=== PATIENT | female | born 1965 | race Caucasian/White ===

== ENCOUNTER → 2017-07-26 | Day surgery (SDC) | payer MEDICARE, OTHER ==
[~2017-07-26] MED LIST: Bupivacaine 0.25% 10 ML SDV ONE; Carvedilol 3.125 MG Tab PO SCH; Dexamethasone 4 MG/ML 5 ML MDV ONE; EPINEPHrine 1 MG/ML 30 ML MDV ONE; EPINEPHrine 1 MG/ML SDV ONE; HYDROmorphone 0.5 MG/0.5 ML Syringe ONE; Lactated Ringers 1,000 ML IV SCH; Levalbuterol HCl 1.25 MG/3 ML Neb NEB SCH; Lidocaine 1% 4 ML ONE; Lidocaine 1%/Sod Bicarbonate in NS 8.4% 1 ML Syringe PRN; Midazolam 1 MG/ML 2 ML SDV ONE; Neostigmine Methylsulfate 10 MG/10 ML MDV ONE; Ondansetron 4 MG/2 ML SDV IVPUSH PRN; Ondansetron 4 MG/2 ML SDV ONE; Promethazine 25 MG/ML SDV IV PRN; Promethazine 6.25 MG in Sodium Chloride 0.9% 9 ML IV PRN; Propofol 200 MG/20 ML SDV ONE; Rocuronium 50 MG/5 ML Vial ONE; Ropivacaine 0.5% 5 MG/ML 30 ML SDV ONE; Scopolamine 1.5 MG Transdermal Patch TRDERM ONE; Sodium Chloride 0.9% 10 ML Syringe FLUSH PRN; Triamcinolone Acetonide 40 MG/ML 1 ML MDV ONE; ceFAZolin 1 GM Vial ONE; fentaNYL 100 MCG/2 ML SDV IVPUSH PRN; fentaNYL 250 MCG/5 ML SDV ONE; traMADol 50 MG Tab PO PRN
--- NOTE | 2017-07-26 10:01 | PCM.PREANE ---
Preanesthetic Assessment - Anesthesia/Transfusion/Family Hx Type of Anesthesia Reaction: Excessive Nausea/Vomiting Family History of Anesthesia Reaction: No Transfusion History: Prior Transfusion Without Reaction - Review of Systems General: No Symptoms Pulmonary: No Symptoms Cardiovascular: No Symptoms, Palpitations (tachycardia- treated by - placed on a new med-cardizem for 1 year) Gastrointestinal: No Symptoms Neurological: No Symptoms, Other (tremors - functional movement disorder) Other: Reports: Easy Bruising - Physical Assessment NPO Status Date: 07/25/17 NPO Status Time: 22:00 (sip of water this am) O2 Sat by Pulse Oximetry: 94 Respiratory Rate: 16 Vital Signs: Last Vital Signs Temp 97.7 F 07/26/17 09:10 Pulse 78 07/26/17 09:10 Resp 16 07/26/17 09:10 BP 121/83 07/26/17 09:10 Pulse Ox 94 L 07/26/17 09:10 Height: 5 ft 4 in Weight: 96.615 kg ASA Class: 2 Mental Status: Alert & Oriented x3 Airway Class: Mallampati = 1 Dentition: Reports: Normal Dentition Thyro-Mental Finger Breadths: 3 Mouth Opening Finger Breadths: 3 ROM/Head Extension: Limited/Partial (due to fusions) Lungs: Clear to Auscultation, Normal Respiratory Effort Cardiovascular: Regular Rate, Regular Rhythm - Allergies Allergies/Adverse Reactions: Allergies Allergy/AdvReac Type Severity Reaction Status Date / Time aspirin Allergy Anaphylactic Verified 07/25/17 14:38 Shock celecoxib [From Celebrex] Allergy Airway Verified 07/25/17 14:38 Tightness codeine Allergy Airway Verified 07/25/17 14:38 Tightness NSAIDS (Non-Steroidal Allergy Anaphylactic Verified 07/25/17 14:38 Anti-Inflamma Shock - Blood Blood Available: No - Anesthesia Plan Pre-Op Medication Ordered: Beta Joe Beta Joe: Carvedilol Med Last Dose Date: 07/26/17 (n) Med Last Dose Time: 10:00 - Acknowledgements Anesthesia Type Planned: General Anesthesia Pt an Appropriate Candidate for the Planned Anesthesia: Yes Alternatives and Risks of Anesthesia Discussed w Pt/Guardian: Yes Pt/Guardian Understands and Agrees with Anesthesia Plan: Yes PreAnesthesia Questionnaire HEENT History: Reports: None Cardiovascular History: Reports: Other (See Below) Other Cardiovascular History: tachycardia - Hx SVT Respiratory History: Reports: Asthma Gastrointestinal History: Reports: Colon Polyp, Other (See Below) Other Gastrointestinal History: hemorrhagic gastritis Genitourinary History: Reports: Other (See Below) Other Genitourinary History: history of breast lump 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 Chronic neck pain with occ. "tingling/pain in arms", muscle spasms, functional movement disorder Other Neuro History: hand tremor Psychiatric History: Reports: Anxiety, Depression, Other (See Below) Other Psychiatric History: fatgiue, insomnia Endocrine/Metabolic History: Reports: Obesity/BMI 30+ Hematologic History: Reports: None Immunologic History: Reports: None Oncologic (Cancer) History: Reports: None Dermatologic History: Reports: Other (See Below) Other Dermatologic History: actinic keratosis - Past Surgical History HEENT Surgical History: Reports: None Cardiovascular Surgical History: Reports: Other (See Below) Other Cardiovascular Surgeries/Procedures: cardiac catheterization GI Surgical History: Reports: Appendectomy, Cholecystectomy, Colonoscopy, EGD Female Surgical History: Reports: Hysterectomy, Tubal Ligation Neurological Surgical History: Reports: Other (See Below) Other Neurological Surgeries/Procedures: spinal fusion, neck surgeries and back surgery, spinal cord stimulant implant Musculoskeletal Surgical History: Reports: Arthroscopic Knee, Knee Replacement Other Musculoskeletal Surgeries/Procedures:: bilateral knee scopes and bilateral knee replacements, excision neuroma foot Oncologic Surgical History: Reports: None - SUBSTANCE USE Smoking Status *Q: Former Smoker (quit 1997) Tobacco Use Within Last Twelve Months: Snuff/Dip Second Hand Smoke Exposure: No Days Per Week of Alcohol Use: 0 (once a month) Recreational Drug Use History: No - HOME MEDS Home Medications: Home Meds Albuterol/Ipratropium [Combivent Respimat] 1 puff INH Q4H PRN 03/10/16 [History] Albuterol/Ipratropium [DuoNeb 3.0-0.5 MG/3 ML] 1 ml INH QID PRN 03/10/16 [ History] Calcium Carb & Citrate/Vit D3 [Citracal + D ER] 1 tab PO BID 03/10/16 [History] Cyclobenzaprine [Flexeril] 5 tab PO TID PRN 03/10/16 [History] EPINEPHrine [Epipen 2-Vineet] 1 ml SUBCUT ASDIRECTED PRN 03/10/16 [History] Fluticasone/Salmeterol [Advair Diskus 500-50] 1 puff INH BID 03/10/16 [History] Montelukast [Singulair] 10 mg PO DAILY 03/10/16 [History] Triamcinolone Acetonide [Nasacort] 1 spray NASBOTH BID 03/10/16 [History] traZODone 50 - 100 mg PO BEDTIME PRN 03/10/16 [History] Carvedilol [Coreg] 3.125 mg PO BID 07/25/17 [History] Cholecalciferol (Vitamin D3) [Vitamin D3] 5,000 unit PO DAILY 07/25/17 [History] Diltiazem HCl [Cardizem Cd] 360 g PO DAILY 07/25/17 [History] Fish Oil/Paris-3 Fatty Acids [Fish Oil 1,000 MG] 1,000 mg PO DAILY 07/25/17 [ History] Olopatadine HCl [Pataday] 1 drop EYEBOTH DAILY 07/25/17 [History] Propylene Glycol/PEG 400/Pf [Systane 0.3-0.4% Eye Drops] 1 drop EYEBOTH BID PRN 07/25/17 [History] Ranitidine HCl [Zantac] 300 mg PO DAILY 07/25/17 [History] Vitamin B Complex [B Complex] 1 tab PO DAILY 07/25/17 [History] traMADol [Ultram] 1 - 2 tab PO Q6H PRN #40 tablet 07/26/17 [Rx] - CURRENT (IN HOUSE) MEDS Current Meds: Current Medications Carvedilol (Coreg) 3.125 mg PO ONETIME BRUNILDA Stop: 07/26/17 10:00 Lactated Ringer's (Ringers, Lactated) 1,000 mls @ 125 mls/hr IV ASDIRECTED BRUNILDA Stop: 07/26/17 23:00 Levalbuterol HCl (Xopenex) 1.25 mg NEB ONETIME BRUNILDA Stop: 07/26/17 18:00 Last Admin: 07/26/17 09:54 Dose: 1.25 mg Lidocaine/Sodium Bicarbonate (Buffered Lidocaine 1% In Ns 8.4%) 0.25 ml .XX ONETIME PRN PRN Reason: Prior to IV Start Stop: 07/26/17 18:00 Sodium Chloride (Saline Flush) 10 ml FLUSH ASDIRECTED PRN PRN Reason: Keep Vein Open Stop: 07/26/17 18:00 Discontinued Medications Cefazolin Sodium (Ancef) Confirm Administered Dose 2 gm .ROUTE .STK-MED ONE Stop: 07/26/17 09:49 Epinephrine HCl (Adrenalin 1:1000) Confirm Administered Dose 1 mg .ROUTE .STK- MED ONE Stop: 07/26/17 07:34 Fentanyl (Sublimaze) Confirm Administered Dose 250 mcg .ROUTE .STK-MED ONE Stop: 07/26/17 07:32 Lidocaine HCl (Xylocaine-Mpf 1%) Confirm Administered Dose 4 mls @ as directed .ROUTE .STK-MED ONE Stop: 07/26/17 07:32 Midazolam HCl (Versed 1 Mg/Ml) Confirm Administered Dose 2 mg .ROUTE .STK-MED ONE Stop: 07/26/17 07:32 Ondansetron HCl (Zofran) Confirm Administered Dose 4 mg .ROUTE .STK-MED ONE Stop: 07/26/17 07:32 Propofol (Diprivan 20 Ml) Confirm Administered Dose 200 mg .ROUTE .STK-MED ONE Stop: 07/26/17 07:32 Rocuronium Pep (Zemuron) Confirm Administered Dose 50 mg .ROUTE .STK-MED ONE Stop: 07/26/17 07:32 Ropivacaine (Naropin 0.5%) Confirm Administered Dose 30 ml .ROUTE .STK-MED ONE Stop: 07/26/17 07:34
--- NOTE | 2017-07-26 12:46 | PCM.POSTAN ---
POST ANESTHESIA ASSESSMENT - MENTAL STATUS Mental Status: Alert, Oriented - VITAL SIGNS Pulse Rate: 62 SaO2: 92 Resp Rate: 14 Blood Pressure: 109/69 Temperature: 97.3 F - RESPIRATORY Respiratory Status: Respiratory Rate WNL, Airway Patent, O2 Saturation Stable, Supplemental Oxygen - CARDIOVASCULAR CV Status: Pulse Rate WNL, Blood Pressure Stable - GASTROINTESTINAL GI Status: No Symptoms - PAIN Pain Score: 2 - POST OP HYDRATION Hydration Status: Adequate & Stable
[2017-07-26] MEDS: HYDROmorphone 0.5 MG/0.5 ML Syringe IVPUSH PRN ×2 (12:55→13:14)
--- NOTE | 2017-07-26 13:21 | PCM.SN ---
- Free Text/Narrative Note: 07/26/17 [id number] Time out performed. Requested to place right interscale block with ultrasound guidance and nerve stimulator for post op pain control per Dr. Collado and patient. Preop diagnosis right shoulder pain. Procedure is right shoulder arthrosocpy with possible rotator cuff repair, possible subacromial decompression, and possible debridement Informed consent obtained. Monitors and O2 placed at 2 l per n/c. Versed 2 mg and Fentanyl 50 mcg given IV total. Patient awake and talking during procedure.Right neck and clavicle area prepped with chlorprep. Sterile gloves, hat and mask worn. US probe with sterile sleeve placed midclavicular with ID of brachial plexus and subclavian artery. Brachial plexus followed cephalad to level of cricoid. Lidocaine 1% local anesthetic injected prior to block placement. 22 g 2 inch stimplex needle advanced with US guidance to brachial plexus. Positive forearm response at ..4mA with nerve stimulator. Ceased with saline injection.Ropivacaine 0.5% with epi 1:200,000 injected in increments of 5 ml with negative aspiration before each injection to a total of 30 ml. Good spread of local anesthetic seen on US. Patient tolerated procedure well. Vitals stable with no complaints. See nurses flow sheet.
--- NOTE | 2017-07-26 13:42 | PCM48HPAN ---
Post Anesthesia Note - EVALUATION WITHIN 48HRS OF ANESTHETIC Vital Signs in Normal Range: Yes Patient Participated in Evaluation: Yes Respiratory Function Stable: Yes Airway Patent: Yes Cardiovascular Function Stable: Yes Hydration Status Stable: Yes Pain Control Satisfactory: Yes Nausea and Vomiting Control Satisfactory: Yes (medicated ) Mental Status Recovered: Yes
[2017-07-26 15:47] VITALS: BP 95/64
--- NOTE | 2017-08-01 14:06 | PCM.OPNOTE ---
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
--- NOTE | 2017-08-01 17:38 | OR ---
DATE OF OPERATION: 07/26/2017 SURGEON: Boom Collado MD OPERATION PERFORMED: 1. Right shoulder video arthroscopy with a large rotator cuff repair. 2. Subacromial decompression, right shoulder. 3. Right shoulder biceps tenodesis. 4. Left shoulder corticosteroid injection and also right shoulder limited debridement. PREOPERATIVE DIAGNOSIS: Right shoulder rotator cuff tear with chondromalacia. POSTOPERATIVE DIAGNOSIS: Right shoulder rotator cuff tear with chondromalacia with biceps tendinopathy and left shoulder rotator cuff tear. ANESTHESIA TECHNIQUE: General endotracheal intubation with interscalene block. ANESTHESIA PROVIDER: Dilip Juan. LITIGATION LEGAL SECRETARY: Jigna Goodwin PA-C ESTIMATED BLOOD LOSS: Less than 5 mL. COMPLICATIONS: None. CONDITION: Stable. DESCRIPTION OF PROCEDURE: The patient was identified in the preop holding area. Proper site was marked and identified by the surgeon. The patient was taken back to the operative theater where after adequate anesthesia, the patient was placed in the lazy left lateral decubitus position. A wedge was placed posteriorly. The patient was secured to the table. Right upper extremity was then sterilely prepped and draped in the usual sterile fashion. OR time-out was performed. The patient received 2 g of IV Ancef. At this time, the right upper extremity had 12 pounds of traction applied. A standard posterior incision was made. Scope trocar was introduced into the glenohumeral joint. Anterior portal was created with the use of the spinal needle from an outside in technique. At this time, a cursory examination showed a large tear to the supraspinatus of the right shoulder with full-thickness tear. There was grade 1 chondromalacia noted of the glenoid. No chondromalacia noted to the humeral head. Biceps tendon was noted to be significantly frayed with significant tendinopathy. The anterior labrum showed significant fraying. The subscapularis tendon was intact. At this time, a FiberWire was passed through the biceps tendon from an inside out technique for later tenodesis in the rotator interval. The biceps tenotomy then was performed and it was found to have good fixation in the rotator interval. Debridement was then done of the labrum. Attention was then turned to the subacromial space. At this time, a limited subacromial bursectomy and synovectomy was then performed and debridement. The patient was noted to have a significant type 3 acromion and the large supraspinatus tear was identified. A good bony bleeding bed was then created using a 4-0 full-radius shauna. A 4-0 full-radius shauna was then also performed to take the type 3 acromion down to a type 1 with doing an acromioplasty. At this time, it was found to have a good smooth border and transition. At this time, one 4.75 mm SwiveLock Arthrex anchor was placed medially, 2 limbs of FiberTape and 4 limbs of FiberWire were then placed from anterior to posterior with the limbs of the FiberTape being at the most anterior and the most posterior. At this time, the 4 limbs of FiberWire were tied medially and there was noted to be good druze of the footprint, 1 limb of each of those sutures was then cut and then all 4 were brought out laterally. A tap was then used again for a punch and a tap was again used laterally for 4.75 mm SwiveLock Arthrex anchor. The 4 limbs of the suture were then brought out and were pulled tight, and there was noted to be good compression of the footprint. This was found to have adequate fixation. The biceps tenodesis and the sutures in the rotator interval were then obtained and were tied in the rotator interval. These sutures were then cut. At this time, excess saline was drained from the joint. A 3-0 nylon simple suture was used for closure of the skin. Sterile soft dressing as well as a pillow sling were applied. After this was completed, under sterile technique, 2 mL of 40 mg Kenalog and 4 mL of 0.25% Marcaine were injected into the left glenohumeral joint for a left shoulder rotator cuff tear. The patient tolerated that procedure as well. [facility] /[id number]
== END | disposition home or self-care (01) ==
LOC: JD.SDS 08:44
PROVIDERS: ATTEND Orthopaedic Surgery
DX: M75.101 Unspecified rotator cuff tear or rupture of right shoulder, not specified as traumatic (principal); M75.102 Unspecified rotator cuff tear or rupture of left shoulder, not specified as traumatic; M94.211 Chondromalacia, right shoulder; M75.21 Bicipital tendinitis, right shoulder; J45.909 Unspecified asthma, uncomplicated; K21.9 Gastro-esophageal reflux disease without esophagitis; F41.8 Other specified anxiety disorders; Z90.710 Acquired absence of both cervix and uterus; Z90.49 Acquired absence of other specified parts of digestive tract; Z98.890 Other specified postprocedural states; Z98.51 Tubal ligation status; Z96.653 Presence of artificial knee joint, bilateral; Z79.899 Other long term (current) drug therapy; Z88.8 Allergy status to other drugs, medicaments and biological substances; Z91.018 Allergy to other foods; Z87.891 Personal history of nicotine dependence
CPT/HCPCS: 29826; 29827; 29828; 94640; A9270; C1713; J0171; J0690; J1100; J1170; J2250; J2405; J2550; J2710; J2795; J3010; J3301; J7120; 01630; 64415; J2704

== ENCOUNTER 2020-08-03 21:09 | Emergency (ER) | payer MEDICARE, OTHER ==
[2020-08-03 21:27] VITALS: BP 172/89; PULSE 104
--- NOTE | 2020-08-03 21:54 | EDM.PDOC ---
ED HPI GENERAL MEDICAL PROBLEM - General Chief Complaint: Respiratory Problem Stated Complaint: COUGH SOB CONGESTION CHEST PRESSURE Time Seen by Provider: 08/03/20 21:13 Source of Information: Reports: Patient, RN Notes Reviewed History Limitations: Reports: No Limitations - History of Present Illness INITIAL COMMENTS - FREE TEXT/NARRATIVE: Patient is a 54-year-old female presenting to the emergency department with complaints of chest tightness, cough, shortness of breath, congestion, and decreased appetite. Her symptoms began on of this week. She did have some diarrhea for a few days, but states she has had no diarrhea thus far today. Her appetite is slightly improved today as well. She has been able to eat solid foods. She states that she was watching her oxygen saturation at home and it was as low as 84% so she came to the emergency department for evaluation. She was seen at the clinic at [place] today and diagnosed with a sinus infection. She was started on doxycycline and prednisone. She states that she requested a Covid test, however they declined stating that she has sinusitis. At the same time she was being seen at the clinic, her was in the ER for evaluation and was admitted with Covid pneumonia. Patient denies any fever or chills. She is has no abdominal pain nausea or vomiting. - Related Data Allergies Allergy/AdvReac Type Severity Reaction Status Date / Time aspirin Allergy Anaphylactic Verified 08/03/20 21:27 Shock celecoxib [From Celebrex] Allergy Airway Verified 08/03/20 21:27 Tightness codeine Allergy Airway Verified 08/03/20 21:27 Tightness NSAIDS (Non-Steroidal Allergy Anaphylactic Verified 08/03/20 21:27 Anti-Inflamma Shock food coloring Allergy Airway Uncoded 08/03/20 21:28 Tightness Home Meds: Home Meds Albuterol/Ipratropium [Combivent Respimat] 1 puff INH Q4H PRN 03/10/16 [History] Albuterol/Ipratropium [DuoNeb 3.0-0.5 MG/3 ML] 1 ml INH QID PRN 03/10/16 [History] Calcium Carb, Citrate/Vit D3 [Citracal + D ER] 1 tab PO BID 03/10/16 [History] Cyclobenzaprine [Flexeril] 5 tab PO TID PRN 03/10/16 [History] EPINEPHrine [Epipen 2-Vineet] 1 ml SUBCUT ASDIRECTED PRN 03/10/16 [History] Fluticasone/Salmeterol [Advair Diskus 500-50] 1 puff INH BID 03/10/16 [History] Montelukast [Singulair] 10 mg PO DAILY 03/10/16 [History] Triamcinolone Acetonide [Nasacort] 1 spray NASBOTH BID 03/10/16 [History] traZODone 50 - 100 mg PO BEDTIME PRN 03/10/16 [History] Carvedilol [Coreg] 3.125 mg PO BID 07/25/17 [History] Cholecalciferol (Vitamin D3) [Vitamin D3] 5,000 unit PO DAILY 07/25/17 [History] Fish Oil/[place]-3 Fatty Acids [Fish Oil 1,000 MG] 1,000 mg PO DAILY 07/25/17 [History] Olopatadine HCl [Pataday] 1 drop EYEBOTH DAILY 07/25/17 [History] Propylene Glycol/PEG 400/Pf [Systane 0.3-0.4% Eye Drop] 1 drop EYEBOTH BID PRN 07/25/17 [History] Vitamin B Complex [B Complex] 1 tab PO DAILY 07/25/17 [History] dilTIAZem HCL [Cardizem Cd] 360 g PO DAILY 07/25/17 [History] raNITIdine HCl [Zantac] 300 mg PO DAILY 07/25/17 [History] traMADol [Ultram] 1 - 2 tab PO Q6H PRN #40 tablet 07/26/17 [Rx] Cannabidiol (Cbd) Extract [CBD Oil] 08/03/20 [History] Doxycycline [Vibramycin] 08/03/20 [History] Fluticasone Propionate 08/03/20 [History] predniSONE [Prednisone] 08/03/20 [History] Past Medical History HEENT History: Reports: None Cardiovascular History: Reports: Other (See Below) Other Cardiovascular History: tachycardia - Hx SVT Respiratory History: Reports: Asthma Gastrointestinal History: Reports: Colon Polyp, Other (See Below) Other Gastrointestinal History: hemorrhagic gastritis Genitourinary History: Reports: Other (See Below) Other Genitourinary History: history of breast lump LAUNDRY AGENT History: Reports: None Musculoskeletal History: Reports: Back Pain, Chronic, Fibromyalgia Other Musculoskeletal History: Chronic back pain with bilat leg numbness/pain. Chronic neck pain with occ. 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 Other Neuro History: hand tremor Psychiatric History: Reports: Anxiety, Depression, Other (See Below) Other Psychiatric History: fatgiue, insomnia Endocrine/Metabolic History: Reports: Obesity/BMI 30+ Hematologic History: Reports: None Immunologic History: Reports: None Oncologic (Cancer) History: Reports: None Dermatologic History: Reports: Other (See Below) Other Dermatologic History: actinic keratosis - Infectious Disease History Infectious Disease History: Reports: Chicken Pox - Past Surgical History HEENT Surgical History: Reports: None Cardiovascular Surgical History: Reports: Other (See Below) Other Cardiovascular Surgeries/Procedures: cardiac catheterization GI Surgical History: Reports: Appendectomy, Cholecystectomy, Colonoscopy, EGD Female Surgical History: Reports: Hysterectomy, Tubal Ligation Neurological Surgical History: Reports: Other (See Below) Other Neurological Surgeries/Procedures: spinal fusion, neck surgeries and back surgery, spinal cord stimulant implant Musculoskeletal Surgical History: Reports: Arthroscopic Knee, Knee Replacement Other Musculoskeletal Surgeries/Procedures:: bilateral knee scopes and bilateral knee replacements, excision neuroma foot Oncologic Surgical History: Reports: None Social & Family History - Tobacco Use Tobacco Use Status *Q: Never Tobacco User - Caffeine Use Caffeine Use: Reports: Coffee, Tea - Recreational Drug Use Recreational Drug Use: No ED ROS GENERAL - Review of Systems Review Of Systems: See Below Constitutional: Reports: Fatigue. Denies: Fever, Chills HEENT: Reports: Sinus Problem. Denies: Throat Pain Respiratory: Reports: Shortness of Breath, Cough, Other (Chest tightness). Denies: Wheezing Cardiovascular: Reports: No Symptoms Endocrine: Reports: No Symptoms GI/Abdominal: Reports: Diarrhea. Denies: Abdominal Pain, Nausea, Vomiting : Reports: No Symptoms Musculoskeletal: Reports: No Symptoms Skin: Reports: No Symptoms Neurological: Reports: No Symptoms Psychiatric: Reports: No Symptoms Hematologic/Lymphatic: Reports: No Symptoms Immunologic: Reports: No Symptoms ED EXAM, GENERAL - Physical Exam Exam: See Below General Appearance: Alert, WD/WN, No Apparent Distress Respiratory/Chest: No Respiratory Distress, Lungs Clear, Normal Breath Sounds, No Accessory Muscle Use, Chest Non-Tender, Other (Harsh, dry cough) Cardiovascular: Normal Peripheral Pulses, Regular Rate, Rhythm, No Edema, No Gallop, No JVD, No Murmur, No Rub GI/Abdominal: Normal Bowel Sounds, Soft, Non-Tender, No Organomegaly, No Distention, No Abnormal Bruit, No Mass Neurological: Alert, Oriented, CN II-XII Intact, Normal Cognition, Normal Gait, Normal Reflexes, No Motor/Sensory Deficits Psychiatric: Normal Affect, Normal Mood Skin Exam: Warm, Dry, Intact, Normal Color, No Rash Course - Vital Signs Last Recorded V/S: Last Vital Signs Temp 97.3 F 08/03/20 21:20 Pulse 104 H 08/03/20 21:20 Resp 22 H 08/03/20 21:20 BP 172/89 H 08/03/20 21:20 Pulse Ox 95 08/03/20 21:20 - Orders/Labs/Meds Labs: Laboratory Tests 08/03/20 08/03/20 08/03/20 Range/Units 21:49 21:49 21:49 WBC 2.98 L (3.98-10.04) K/mm3 RBC 4.82 (3.98-5.22) M/mm3 Hgb 14.3 (11.2-15.7) gm/dl Hct 43.3 (34.1-44.9) % MCV 89.8 (79.4-94.8) fl MCH 29.7 (25.6-32.2) pg MCHC 33.0 (32.2-35.5) g/dl RDW Std Deviation 45.4 (36.4-46.3) fL Plt Count 178 L D (182-369) K/mm3 MPV 9.5 (9.4-12.3) fl Neut % (Auto) 59.1 (34.0-71.1) % Lymph % (Auto) 28.5 (19.3-51.7) % [place] % (Auto) 10.7 (4.7-12.5) % Eos % (Auto) 0 L (0.7-5.8) Baso % (Auto) 0.7 (0.1-1.2) % Neut # (Auto) 1.76 (1.56-6.13) K/mm3 Lymph # (Auto) 0.85 L (1.18-3.74) K/mm3 [place] # (Auto) 0.32 (0.24-0.36) K/mm3 Eos # (Auto) 0.00 L (0.04-0.36) K/mm3 Baso # (Auto) 0.02 (0.01-0.08) K/mm3 Manual Slide Review Abnormal smear D-Dimer, Quantitative 0.22 (0.19-0.50) mg/L Sodium 139 (136-145) mEq/L Potassium 4.0 (3.5-5.1) mEq/L Chloride 103 (98-107) mEq/L Carbon Dioxide 22 (21-32) mEq/L Anion Gap 18.0 H (5-15) BUN 7 (7-18) mg/dL Creatinine 1.1 H (0.55-1.02) mg/dL Est Cr Clr Drug Dosing 50.49 mL/min Estimated GFR (MDRD) 52 (>60) mL/min BUN/Creatinine Ratio 6.4 L (14-18) Glucose 148 H (74-106) mg/dL Calcium 8.5 (8.5-10.1) mg/dL Ferritin (8-252) ng/ml Total Bilirubin 0.3 (0.2-1.0) mg/dL AST 38 H (15-37) U/L ALT 61 H (14-59) U/L Alkaline Phosphatase 57 (46-116) U/L Lactate Dehydrogenase 323 H (81-234) U/L Troponin I < 0.017 (0.00-0.056) ng/mL C-Reactive Protein 6.2 H* (<1.0) mg/dL Total Protein 7.3 (6.4-8.2) g/dl Albumin 3.2 L (3.4-5.0) g/dl Globulin 4.1 gm/dL Albumin/Globulin Ratio 0.8 L (1-2) 08/03/20 Range/Units 21:49 WBC (3.98-10.04) K/mm3 RBC (3.98-5.22) M/mm3 Hgb (11.2-15.7) gm/dl Hct (34.1-44.9) % MCV (79.4-94.8) fl MCH (25.6-32.2) pg MCHC (32.2-35.5) g/dl RDW Std Deviation (36.4-46.3) fL Plt Count (182-369) K/mm3 MPV (9.4-12.3) fl Neut % (Auto) (34.0-71.1) % Lymph % (Auto) (19.3-51.7) % [place] % (Auto) (4.7-12.5) % Eos % (Auto) (0.7-5.8) Baso % (Auto) (0.1-1.2) % Neut # (Auto) (1.56-6.13) K/mm3 Lymph # (Auto) (1.18-3.74) K/mm3 [place] # (Auto) (0.24-0.36) K/mm3 Eos # (Auto) (0.04-0.36) K/mm3 Baso # (Auto) (0.01-0.08) K/mm3 Manual Slide Review D-Dimer, Quantitative (0.19-0.50) mg/L Sodium (136-145) mEq/L Potassium (3.5-5.1) mEq/L Chloride (98-107) mEq/L Carbon Dioxide (21-32) mEq/L Anion Gap (5-15) BUN (7-18) mg/dL Creatinine (0.55-1.02) mg/dL Est Cr Clr Drug Dosing mL/min Estimated GFR (MDRD) (>60) mL/min BUN/Creatinine Ratio (14-18) Glucose (74-106) mg/dL Calcium (8.5-10.1) mg/dL Ferritin 649 H (8-252) ng/ml Total Bilirubin (0.2-1.0) mg/dL AST (15-37) U/L ALT (14-59) U/L Alkaline Phosphatase (46-116) U/L Lactate Dehydrogenase (81-234) U/L Troponin I (0.00-0.056) ng/mL C-Reactive Protein (<1.0) mg/dL Total Protein (6.4-8.2) g/dl Albumin (3.4-5.0) g/dl Globulin gm/dL Albumin/Globulin Ratio (1-2) - Re-Assessments/Exams Free Text/Narrative Re-Assessment/Exam: Patient is a 54-year-old female presenting to the emergency department for medical evaluation with regards to cough, shortness of breath, chest tightness, and nasal congestion. She is also had diarrhea up until today and decreased appetite. She was able to eat solid food today which she states was the first for the last few days. Her was admitted with COVID-19 pneumonia earlier today. 08/03/20 22:49 Hematology was significant for a WBC was low at 2.98, anion gap 18.0, creatinine 1.1, ferritin 649, AST 38, ALT 61, LDH 323, CRP 6.2. EKG was negative for any acute abnormalities. Chest x-ray reviewed by myself and Dr. Beltre was negative for any infiltrates. Patient's oxygen saturation has maintained 93 to 96% on room air throughout her stay in the ER. We will discharge her home with a instrument prescription for Tessalon Perles for cough. Recommend that she monitor her oxygen saturations and return to ER for worsening symptoms. She will be notified of Covid test results when available. Departure - Departure Time of Disposition: 22:49 Disposition: Home, Self-Care 01 Condition: Good Clinical Impression: Viral respiratory illness - Discharge Information *PRESCRIPTION DRUG MONITORING PROGRAM REVIEWED*: No *COPY OF PRESCRIPTION DRUG MONITORING REPORT IN PATIENT DE: No Instructions: Viral Respiratory Infection, [id number] Referrals: PCP,None [Primary Care Provider] - Forms: ED Department Discharge Additional Instructions: You were seen in the emergency department this evening for cough, shortness of breath, chest tightness, nasal congestion and decreased appetite. Your work-up included blood work, an ECG of your heart, and a chest xray. Your workup was found to be overall normal with the exception of an elevation in the labs that are consistently elevated with COVID19. There was no evidence of pneumonia. Your oxygen saturations and other vital signs were normal. A coronavirus test has been completed. You will be notified of the results when they are available which is generally 24-72 hours. Recommend that you isolate at home. A prescription for tesselon pearls has been provided. Use these as needed for cough. Continue to monitor your oxygen saturations at home. If you are maintaining less than 90%, or experience any new or worsening symptoms of concern, please return to the ER for reevaluation. Sepsis Event Note (ED) - Evaluation Sepsis Screening Result: Possible Sepsis Risk
== END 2020-08-03 23:15 | disposition home or self-care (01) ==
LOC: JD.ED 21:09
DX: J06.9 Acute upper respiratory infection, unspecified (principal); J45.909 Unspecified asthma, uncomplicated; F41.9 Anxiety disorder, unspecified; F32.9 Major depressive disorder, single episode, unspecified; E66.9 Obesity, unspecified; Z88.8 Allergy status to other drugs, medicaments and biological substances; Z88.1 Allergy status to other antibiotic agents; Z91.018 Allergy to other foods; Z88.5 Allergy status to narcotic agent; Z98.51 Tubal ligation status; Z90.710 Acquired absence of both cervix and uterus; Z90.49 Acquired absence of other specified parts of digestive tract; Z79.899 Other long term (current) drug therapy
CPT/HCPCS: 36415; 71045; 80053; 82728; 83615; 84484; 85025; 85379; 86140; 93005; 99285; U0002; 93010; 99283

== ENCOUNTER 2020-08-06 10:42 | Inpatient (IN) | payer MEDICARE, OTHER ==
--- NOTE | 2020-08-06 11:50 | EDM.PDOC ---
ED HPI GENERAL MEDICAL PROBLEM - General Chief Complaint: Respiratory Problem Stated Complaint: COVID SX DIFFUCULTY BREATHING Time Seen by Provider: 08/06/20 11:18 Source of Information: Reports: Patient, Old Records, RN Notes Reviewed History Limitations: Reports: No Limitations - History of Present Illness INITIAL COMMENTS - FREE TEXT/NARRATIVE: Patient is a 54-year-old female who presents to the ED for evaluation of her COVID-like symptoms. Patient notes her was diagnosed with COVID, and is currently hospitalized for this. Patient notes she has been having symptoms since last week . She was seen in this ER on Sunday, tested for COVID- 19, but has not received results. Review of that visit does demonstrate lab values that are suspicious for positive diagnosis of COVID-19 at this time. Patient states that she does have a history of asthma, she was feeling very short of breath at home. She states she woke up this morning, did some light activity around the house and noted that her oxygen sats were in the 70s. She states she saw as high as 82%, and then decided to come to the ER for management. She has oxygen sats of 93 to 94% while being in the ER, and she is not visibly dyspneic. Her respiratory rate is 33 breaths/min, pulse rate is 116, temperature is 98.6 F. Patient states she is coughing quite a bit, and the Tessalon Perles seem to help a little bit. She states she was using her asthma inhaler as well, and is currently on prednisone from her primary care provider. She states that she did get some relief with asthma inhaler, and has been using this off and on. Her primary care provider is Paris Umana. Patient states she is not thought she has had any fever at home, but she does feel chilled. She has a cough, shortness of breath, but no nausea/vomiting/diarrhea. Treatments GREY TENDER: Reports: Other (see below) Other Treatments GREY TENDER: none for a few days Left Chest Pain Score (Numeric/FACES): 6 - Related Data Allergies Allergy/AdvReac Type Severity Reaction Status Date / Time aspirin Allergy Severe Anaphylactic Verified 08/06/20 11:13 Shock celecoxib [From Celebrex] Allergy Severe Airway Verified 08/06/20 11:13 Tightness codeine Allergy Severe Airway Verified 08/06/20 11:13 Tightness NSAIDS (Non-Steroidal Allergy Severe Anaphylactic Verified 08/06/20 11:13 Anti-Inflamma Shock food coloring Allergy Severe Airway Uncoded 08/06/20 11:13 Tightness Home Meds: Home Meds Albuterol/Ipratropium [Combivent Respimat] 1 puff INH Q4H PRN 03/10/16 [History] Albuterol/Ipratropium [DuoNeb 3.0-0.5 MG/3 ML] 1 ml INH QID PRN 03/10/16 [History] Calcium Carb, Citrate/Vit D3 [Citracal + D ER] 1 tab PO BID 03/10/16 [History] Cyclobenzaprine [Flexeril] 5 tab PO TID PRN 03/10/16 [History] EPINEPHrine [Epipen 2-Vineet] 1 ml SUBCUT ASDIRECTED PRN 03/10/16 [History] Fluticasone/Salmeterol [Advair Diskus 500-50] 1 puff INH BID 03/10/16 [History] Montelukast [Singulair] 10 mg PO DAILY 03/10/16 [History] Triamcinolone Acetonide [Nasacort] 1 spray NASBOTH BID 03/10/16 [History] traZODone 50 - 100 mg PO BEDTIME PRN 03/10/16 [History] Carvedilol [Coreg] 3.125 mg PO BID 07/25/17 [History] Cholecalciferol (Vitamin D3) [Vitamin D3] 5,000 unit PO DAILY 07/25/17 [History] Fish Oil/[place]-3 Fatty Acids [Fish Oil 1,000 MG] 1,000 mg PO DAILY 07/25/17 [History] Olopatadine HCl [Pataday] 1 drop EYEBOTH DAILY 07/25/17 [History] Propylene Glycol/PEG 400/Pf [Systane 0.3-0.4% Eye Drop] 1 drop EYEBOTH BID PRN 07/25/17 [History] Vitamin B Complex [B Complex] 1 tab PO DAILY 07/25/17 [History] dilTIAZem HCL [Cardizem Cd] 360 g PO DAILY 07/25/17 [History] raNITIdine HCl [Zantac] 300 mg PO DAILY 07/25/17 [History] traMADol [Ultram] 1 - 2 tab PO Q6H PRN #40 tablet 07/26/17 [Rx] Cannabidiol (Cbd) Extract [CBD Oil] 08/03/20 [History] Doxycycline [Vibramycin] 08/03/20 [History] Fluticasone Propionate 08/03/20 [History] predniSONE [Prednisone] 08/03/20 [History] Past Medical History Cardiovascular History: Reports: Other (See Below) Other Cardiovascular History: tachycardia - Hx SVT Respiratory History: Reports: Asthma Gastrointestinal History: Reports: Colon Polyp, Other (See Below) Other Gastrointestinal History: hemorrhagic gastritis Genitourinary History: Reports: Other (See Below) Other Genitourinary History: history of breast lump Musculoskeletal History: Reports: Back Pain, Chronic, Fibromyalgia Other Musculoskeletal History: Chronic back pain with bilat leg numbness/pain. Chronic neck pain with occ. 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 Neurological History: Reports: Other (See Below) Other Neuro History: hand tremor Psychiatric History: Reports: Anxiety, Depression, Other (See Below) Other Psychiatric History: fatigue, insomnia Endocrine/Metabolic History: Reports: Obesity/BMI 30+ Dermatologic History: Reports: Other (See Below) Other Dermatologic History: actinic keratosis - Infectious Disease History Infectious Disease History: Reports: Chicken Pox - Past Surgical History Cardiovascular Surgical History: Reports: Other (See Below) Other Cardiovascular Surgeries/Procedures: cardiac catheterization GI Surgical History: Reports: Appendectomy, Cholecystectomy, Colonoscopy, EGD Female Surgical History: Reports: Hysterectomy, Tubal Ligation Neurological Surgical History: Reports: Other (See Below) Other Neurological Surgeries/Procedures: spinal fusion, neck surgeries and back surgery, spinal cord stimulant implant Musculoskeletal Surgical History: Reports: Arthroscopic Knee, Knee Replacement Other Musculoskeletal Surgeries/Procedures:: bilateral knee scopes and bilateral knee replacements, excision neuroma foot Social & Family History - Tobacco Use Tobacco Use Status *Q: Never Tobacco User - Caffeine Use Caffeine Use: Reports: Coffee, Soda - Recreational Drug Use Recreational Drug Use: No ED ROS GENERAL - Review of Systems Review Of Systems: Comprehensive ROS is negative, except as noted in HPI. ED EXAM, GENERAL - Physical Exam Exam: See Below Exam Limited By: No Limitations General Appearance: Alert, WD/WN, No Apparent Distress Respiratory/Chest: No Respiratory Distress, Lungs Clear, Normal Breath Sounds, No Accessory Muscle Use, Chest Non-Tender, Other (dry, harsh, non-productive cough) Cardiovascular: Normal Peripheral Pulses, Regular Rate, Rhythm, No Murmur Peripheral Pulses: 2+: Radial (L), Radial (R) GI/Abdominal: Normal Bowel Sounds, Soft, Non-Tender, No Distention, No Mass Extremities: Normal Inspection, Normal Capillary Refill Neurological: Alert, Oriented, Normal Cognition, No Motor/Sensory Deficits Psychiatric: Normal Affect, Normal Mood Skin Exam: Warm, Dry, Intact, Normal Color, No Rash Course - Vital Signs Last Recorded V/S: Last Vital Signs Temp 98.6 F 08/06/20 11:12 Pulse 116 H 08/06/20 11:12 Resp 33 H 08/06/20 11:12 BP 135/69 08/06/20 11:12 Pulse Ox 93 L 08/06/20 11:12 - Orders/Labs/Meds Orders: Active Orders 24 hr Category Date Time Status Admission Status [Patient Status] [ADT] Routine ADT 08/06/20 12:24 Ordered Oxygen Therapy, ED [RC] ASDIRECTED Care 08/06/20 12:23 Ordered Peripheral IV Care [RC] . DIRECTED Care 08/06/20 12:16 Ordered Chest 1V Frontal [CR] Stat Exams 08/06/20 11:42 Ordered C-REACTIVE PROTEIN [CHEM] Stat Lab 08/06/20 12:15 Ordered CBC WITH AUTO DIFF [HEME] Stat Lab 08/06/20 12:15 Ordered COMPREHENSIVE METABOLIC PN,CMP [CHEM] Stat Lab 08/06/20 12:15 Ordered CULTURE BLOOD [BC] Stat Lab 08/06/20 12:23 Ordered CULTURE BLOOD [BC] Stat Lab 08/06/20 12:23 Ordered D-DIMER QUANTITATIVE [COAG] Stat Lab 08/06/20 12:15 Ordered FERRITIN [CHEM] Stat Lab 08/06/20 12:16 Ordered FIBRINOGEN [COAG] Stat Lab 08/06/20 12:15 Ordered LACTATE DEHYDROGENASE,LDH [CHEM] Stat Lab 08/06/20 12:15 Ordered MAGNESIUM [CHEM] Stat Lab 08/06/20 12:15 Ordered PROCALCITONIN [REF] Stat Lab 08/06/20 12:15 Ordered Sodium Chloride 0.9% [Saline Flush] Med 08/06/20 12:16 Ordered 10 ml FLUSH ASDIRECTED PRN Blood Culture x2 Reflex Set [OM.PC] Stat Oth 08/06/20 12:23 Ordered Peripheral IV Insertion Adult [OM.PC] Routine Oth 08/06/20 12:16 Ordered Medication Orders Sodium Chloride (Saline Flush) 10 ml FLUSH ASDIRECTED PRN PRN Reason: Keep Vein Open Labs: Laboratory Tests 08/06/20 Range/Units 12:32 Puncture Site Rt radial ABG pH 7.46 H (7.35-7.45) ABG pCO2 32.7 L (35.0-45.0) mmHg ABG pO2 60.0 L (80.0-100.0) mmHg ABG HCO3 22.7 (22.0-26.0) meq/L ABG O2 Saturation 91.5 L (96.0-97.0) % ABG Base Excess -0.1 (-2-2.0) Hemant Test Positive A-a Gradient 49 mmHg O2 Delivery Device Room air Meds: Medications Generic Name Dose Route Start Last Admin Trade Name Freq PRN Reason Stop Dose Admin Sodium Chloride 10 ml 08/06/20 12:16 Saline Flush FLUSH ASDIRECTED PRN Keep Vein Open Discontinued Medications Generic Name Dose Route Start Last Admin Trade Name Freq PRN Reason Stop Dose Admin Dexamethasone 6 mg 08/06/20 12:28 Dexamethasone IVPUSH 08/06/20 12:29 ONETIME ONE Remdesivir 200 mg/ Sodium 250 mls @ 250 mls/hr 08/06/20 12:26 Chloride IV 08/06/20 12:27 ONETIME ONE - Re-Assessments/Exams Free Text/Narrative Re-Assessment/Exam: 08/06/20 11:47 Patient presents to the ED for evaluation of her [id number] symptoms. For today's purposes, we will repeat a chest x-ray, patient is okay with this plan. It is likely that she is suffering from COVID-19, even though the swab is pending. Patient feels better after she gets to the ER and use the asthma inhaler. I did tell her that it would be okay for her to use this 4 times a day over the next few days, as these next few days are the most likely for her to feel the worst. I told her to keep taking the prednisone as directed as well. 08/06/20 12:21 The patient's chest x-ray has progressed at this time, and does look suspicious for COVID-19 pneumonia. Patient is still slightly tachycardic, and oxygen sats have dipped to the high 80s, fortunately our hospitalist was in the ER, consulting on another patient, and thinks that they would have room for a patient like this, and at this stage of her disease course, he states she would likely benefit from remdesivir and other treatments. 08/06/20 12:47 Chest x-ray does show groundglass airspace disease with mid and lower lung pettit bilaterally. Departure - Departure Time of Disposition: 12:25 Disposition: Admitted As Inpatient 66 Condition: Fair Clinical Impression: COVID-19, Hypoxia - Discharge Information *PRESCRIPTION DRUG MONITORING PROGRAM REVIEWED*: No *COPY OF PRESCRIPTION DRUG MONITORING REPORT IN PATIENT DE: No Referrals: Paris Umana NP [Primary Care Provider] - Forms: ED Department Discharge Sepsis Event Note (ED) - Evaluation Sepsis Screening Result: No Definite Risk - Focused Exam Vital Signs: Vital Signs Temp Pulse Resp BP Pulse Ox 08/06/20 11:12 98.6 F 116 H 33 H 135/69 93 L - My Orders Last 24 Hours: My Active Orders 08/06/20 11:42 Chest 1V Frontal [CR] Stat 08/06/20 12:15 C-REACTIVE PROTEIN [CHEM] Stat CBC WITH AUTO DIFF [HEME] Stat COMPREHENSIVE METABOLIC PN,CMP [CHEM] Stat D-DIMER QUANTITATIVE [COAG] Stat FIBRINOGEN [COAG] Stat LACTATE DEHYDROGENASE,LDH [CHEM] Stat MAGNESIUM [CHEM] Stat PROCALCITONIN [REF] Stat 08/06/20 12:16 Peripheral IV Care [RC] . DIRECTED FERRITIN [CHEM] Stat Sodium Chloride 0.9% [Saline Flush] 10 ml FLUSH ASDIRECTED PRN Peripheral IV Insertion Adult [OM.PC] Routine 08/06/20 12:23 Oxygen Therapy, ED [RC] ASDIRECTED CULTURE BLOOD [BC] Stat CULTURE BLOOD [BC] Stat Blood Culture x2 Reflex Set [OM.PC] Stat 08/06/20 12:24 Admission Status [Patient Status] [ADT] Routine - Assessment/Plan Last 24 Hours: My Active Orders 08/06/20 11:42 Chest 1V Frontal [CR] Stat 08/06/20 12:15 C-REACTIVE PROTEIN [CHEM] Stat CBC WITH AUTO DIFF [HEME] Stat COMPREHENSIVE METABOLIC PN,CMP [CHEM] Stat D-DIMER QUANTITATIVE [COAG] Stat FIBRINOGEN [COAG] Stat LACTATE DEHYDROGENASE,LDH [CHEM] Stat MAGNESIUM [CHEM] Stat PROCALCITONIN [REF] Stat 08/06/20 12:16 Peripheral IV Care [RC] . DIRECTED FERRITIN [CHEM] Stat Sodium Chloride 0.9% [Saline Flush] 10 ml FLUSH ASDIRECTED PRN Peripheral IV Insertion Adult [OM.PC] Routine 08/06/20 12:23 Oxygen Therapy, ED [RC] ASDIRECTED CULTURE BLOOD [BC] Stat CULTURE BLOOD [BC] Stat Blood Culture x2 Reflex Set [OM.PC] Stat 08/06/20 12:24 Admission Status [Patient Status] [ADT] Routine
[2020-08-06] MEDS ORDERED: Sodium Chloride 0.9% 10 ML Syringe FLUSH PRN (12:16)
[2020-08-06] MEDS ORDERED: Dexamethasone 10 MG/ML SDV IVPUSH ONE (12:28)
[2020-08-06] MEDS ORDERED: Ondansetron 4 MG/2 ML SDV IV PRN (14:05)
[2020-08-06] MEDS ORDERED: Azithromycin 500 MG AdvVial IV SCH (14:30)
[2020-08-06] MEDS ORDERED: cefTRIAXone 2 GM in Sodium Chloride 0.9% 100 ML IV SCH (14:45)
[2020-08-06] MEDS ORDERED: Potassium Chloride 20 MEQ Tab.ER PO STA (15:41)
--- NOTE | 2020-08-06 15:51 | PCM.HP.2 ---
H&P History of Present Illness - General Date of Service: 08/06/20 Admit Problem/Dx: Admission Diagnosis/Problem Admission Diagnosis/Problem Hypoxia Source of Information: Patient, Provider History Limitations: Reports: No Limitations - History of Present Illness Initial Comments - Free Text/Narative: Patient is a 54-year-old female who presents to the ED for evaluation of her COVID-like symptoms. Patient notes her was diagnosed with COVID, and is currently hospitalized for this. Patient notes she has been having symptoms since last week . She was seen in this ER on Sunday, tested for COVID- 19, but has not received results. Review of that visit does demonstrate lab values that are suspicious for positive diagnosis of COVID-19 at this time. Patient states that she does have a history of asthma, she was feeling very short of breath at home. She states she woke up this morning, did some light activity around the house and noted that her oxygen sats were in the 70s. She states she saw as high as 82%, and then decided to come to the ER for m anagement. She has oxygen sats of 93 to 94% while being in the ER, and she is not visibly dyspneic. Her respiratory rate is 33 breaths/min, pulse rate is 116, temperature is 98.6 F. Patient states she is coughing quite a bit, and the Tessalon Perles seem to help a little bit. She states she was using her asthma inhaler as well, and is currently on prednisone from her primary care provider. She states that she did get some relief with asthma inhaler, and has been using this off and on. Her primary care provider is Paris Umana. Patient states she is not thought she has had any fever at home, but she does feel chilled. She has a cough, shortness of breath, but no nausea/vomiting/diar garry. Left Chest Pain Score (Numeric/FACES): 6 - Related Data Allergies/Adverse Reactions: Allergies Allergy/AdvReac Type Severity Reaction Status Date / Time aspirin Allergy Severe Anaphylactic Verified 08/06/20 11:13 Shock celecoxib [From Celebrex] Allergy Severe Airway Verified 08/06/20 11:13 Tightness codeine Allergy Severe Airway Verified 08/06/20 11:13 Tightness NSAIDS (Non-Steroidal Allergy Severe Anaphylactic Verified 08/06/20 11:13 Anti-Inflamma Shock food coloring Allergy Severe Airway Uncoded 08/06/20 11:13 Tightness Home Medications: Home Meds Albuterol/Ipratropium [Combivent Respimat] 1 puff INH Q4H PRN 03/10/16 [History] Albuterol/Ipratropium [DuoNeb 3.0-0.5 MG/3 ML] 1 ml INH QID PRN 03/10/16 [History] Calcium Carb, Citrate/Vit D3 [Citracal + D ER] 1 tab PO BID 03/10/16 [History] Cyclobenzaprine [Flexeril] 5 tab PO TID PRN 03/10/16 [History] EPINEPHrine [Epipen 2-Vineet] 1 ml SUBCUT ASDIRECTED PRN 03/10/16 [History] Fluticasone/Salmeterol [Advair Diskus 500-50] 1 puff INH BID 03/10/16 [History] Montelukast [Singulair] 10 mg PO DAILY 03/10/16 [History] Triamcinolone Acetonide [Nasacort] 1 spray NASBOTH BID 03/10/16 [History] traZODone 50 - 100 mg PO BEDTIME PRN 03/10/16 [History] Carvedilol [Coreg] 3.125 mg PO BID 07/25/17 [History] Cholecalciferol (Vitamin D3) [Vitamin D3] 5,000 unit PO DAILY 07/25/17 [History] Fish Oil/[place]-3 Fatty Acids [Fish Oil 1,000 MG] 1,000 mg PO DAILY 07/25/17 [History] Olopatadine HCl [Pataday] 1 drop EYEBOTH DAILY 07/25/17 [History] Propylene Glycol/PEG 400/Pf [Systane 0.3-0.4% Eye Drop] 1 drop EYEBOTH BID PRN 07/25/17 [History] Vitamin B Complex [B Complex] 1 tab PO DAILY 07/25/17 [History] dilTIAZem HCL [Cardizem Cd] 360 g PO DAILY 07/25/17 [History] raNITIdine HCl [Zantac] 300 mg PO DAILY 07/25/17 [History] traMADol [Ultram] 1 - 2 tab PO Q6H PRN #40 tablet 07/26/17 [Rx] Cannabidiol (Cbd) Extract [CBD Oil] 08/03/20 [History] Doxycycline [Vibramycin] 08/03/20 [History] Fluticasone Propionate 08/03/20 [History] predniSONE [Prednisone] 08/03/20 [History] Past Medical History HEENT History: Reports: None Cardiovascular History: Reports: Other (See Below) Other Cardiovascular History: tachycardia - Hx SVT Respiratory History: Reports: Asthma Gastrointestinal History: Reports: Colon Polyp, Other (See Below) Other Gastrointestinal History: hemorrhagic gastritis Genitourinary History: Reports: Other (See Below) Other Genitourinary History: history of breast lump BOX FINISHER History: Reports: None Musculoskeletal History: Reports: Back Pain, Chronic, Fibromyalgia Other Musculoskeletal History: Chronic back pain with bilat leg numbness/pain. Chronic neck pain with occ. 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 Neurological History: Reports: Other (See Below) Other Neuro History: hand tremor Psychiatric History: Reports: Anxiety, Depression, Other (See Below) Other Psychiatric History: fatigue, insomnia Endocrine/Metabolic History: Reports: Obesity/BMI 30+ Hematologic History: Reports: None Immunologic History: Reports: None Oncologic (Cancer) History: Reports: None Dermatologic History: Reports: Other (See Below) Other Dermatologic History: actinic keratosis - Infectious Disease History Infectious Disease History: Reports: Chicken Pox - Past Surgical History HEENT Surgical History: Reports: None Cardiovascular Surgical History: Reports: Other (See Below) Other Cardiovascular Surgeries/Procedures: cardiac catheterization GI Surgical History: Reports: Appendectomy, Cholecystectomy, Colonoscopy, EGD Female Surgical History: Reports: Hysterectomy, Tubal Ligation Neurological Surgical History: Reports: Other (See Below) Other Neurological Surgeries/Procedures: spinal fusion, neck surgeries and back surgery, spinal cord stimulant implant Musculoskeletal Surgical History: Reports: Arthroscopic Knee, Knee Replacement Other Musculoskeletal Surgeries/Procedures:: bilateral knee scopes and bilateral knee replacements, excision neuroma foot Oncologic Surgical History: Reports: None Social & Family History - Tobacco Use Tobacco Use Status *Q: Former Tobacco User Used Tobacco, but Quit: Yes Month/Year Tobacco Last Used: 2018 - Caffeine Use Caffeine Use: Reports: Coffee, Soda, Tea - Recreational Drug Use Recreational Drug Use: No H&P Review of Systems - Review of Systems: Review Of Systems: See Below General: Reports: Malaise, Weakness HEENT: Reports: Glasses Pulmonary: Reports: Shortness of Breath, Cough, Sputum (Clear sputum) Cardiovascular: Reports: No Symptoms Gastrointestinal: Reports: No Symptoms Genitourinary: Reports: No Symptoms Musculoskeletal: Reports: No Symptoms Skin: Reports: No Symptoms Psychiatric: Reports: No Symptoms Neurological: Reports: No Symptoms Exam - Exam Exam: See Below - Vital Signs Vital Signs: Last Vital Signs Temp 98.6 F 08/06/20 11:12 Pulse 116 H 08/06/20 11:12 Resp 33 H 08/06/20 11:12 BP 135/69 08/06/20 11:12 Pulse Ox 93 L 08/06/20 11:12 Weight: 226 lb - Exam Quality Assessment: Supplemental Oxygen, DVT Prophylaxis (Lovenox) General: Alert, Oriented, Cooperative, Mild Distress HEENT: Conjunctiva Clear, EACs Clear, Mucosa Moist & [place], Pupils Reactive Neck: Supple, Trachea Midline. No: Lymphadenopathy Lungs: Decreased Breath Sounds, Crackles (Fine crackles in the bases.) Cardiovascular: Regular Rate, Regular Rhythm GI/Abdominal Exam: Normal Bowel Sounds, Soft, Non-Tender, No Distention (Female) Exam: Deferred Rectal (Female) Exam: Deferred Back Exam: Normal Inspection, Full Range of Motion Extremities: Normal Inspection, Normal Range of Motion, Non-Tender, No Pedal Edema, Normal Capillary Refill Peripheral Pulses: 2+: Radial (L), Radial (R), Dorsalis Pedis (L), Dorsalis Pedis (R) Skin: Warm, Dry, Intact Neuro Extensive - Mental Status: Alert, Oriented x3, Normal Mood/Affect, Normal Cognition, Memory Intact Psychiatric: Alert, Normal Affect, Normal Mood - Patient Data Lab Results Last 24 hrs: Laboratory Results - last 24 hr 08/06/20 08/06/20 08/06/20 Range/Units 12:32 12:48 12:48 WBC 8.92 (3.98-10.04) K/mm3 RBC 4.56 (3.98-5.22) M/mm3 Hgb 13.5 (11.2-15.7) gm/dl Hct 41.2 (34.1-44.9) % MCV 90.4 (79.4-94.8) fl MCH 29.6 (25.6-32.2) pg MCHC 32.8 (32.2-35.5) g/dl RDW Std Deviation 45.8 (36.4-46.3) fL Plt Count 247 (182-369) K/mm3 MPV 9.4 (9.4-12.3) fl Neut % (Auto) 79.1 H (34.0-71.1) % Lymph % (Auto) 9.1 L (19.3-51.7) % [place] % (Auto) 9.3 (4.7-12.5) % Eos % (Auto) 0.6 L (0.7-5.8) Baso % (Auto) 0.1 (0.1-1.2) % Neut # (Auto) 7.06 H (1.56-6.13) K/mm3 Lymph # (Auto) 0.81 L (1.18-3.74) K/mm3 [place] # (Auto) 0.83 H (0.24-0.36) K/mm3 Eos # (Auto) 0.05 (0.04-0.36) K/mm3 Baso # (Auto) 0.01 (0.01-0.08) K/mm3 Manual Slide Review Abnormal smear Fibrinogen 491 H (187-446) mg/dL D-Dimer, Quantitative 0.32 (0.19-0.50) mg/L Puncture Site Rt radial ABG pH 7.46 H (7.35-7.45) ABG pCO2 32.7 L (35.0-45.0) mmHg ABG pO2 60.0 L (80.0-100.0) mmHg ABG HCO3 22.7 (22.0-26.0) meq/L ABG O2 Saturation 91.5 L (96.0-97.0) % ABG Base Excess -0.1 (-2-2.0) Hemant Test Positive A-a Gradient 49 mmHg O2 Delivery Device Room air Sodium (136-145) mEq/L Potassium (3.5-5.1) mEq/L Chloride (98-107) mEq/L Carbon Dioxide (21-32) mEq/L Anion Gap (5-15) BUN (7-18) mg/dL Creatinine (0.55-1.02) mg/dL Est Cr Clr Drug Dosing mL/min Estimated GFR (MDRD) (>60) mL/min BUN/Creatinine Ratio (14-18) Glucose (74-106) mg/dL Calcium (8.5-10.1) mg/dL Magnesium (1.8-2.4) mg/dl Ferritin (8-252) ng/ml Total Bilirubin (0.2-1.0) mg/dL AST (15-37) U/L ALT (14-59) U/L Alkaline Phosphatase (46-116) U/L Lactate Dehydrogenase (81-234) U/L C-Reactive Protein (<1.0) mg/dL Total Protein (6.4-8.2) g/dl Albumin (3.4-5.0) g/dl Globulin gm/dL Albumin/Globulin Ratio (1-2) Blood Type 08/06/20 08/06/20 08/06/20 Range/Units 12:48 12:48 12:48 WBC (3.98-10.04) K/mm3 RBC (3.98-5.22) M/mm3 Hgb (11.2-15.7) gm/dl Hct (34.1-44.9) % MCV (79.4-94.8) fl MCH (25.6-32.2) pg MCHC (32.2-35.5) g/dl RDW Std Deviation (36.4-46.3) fL Plt Count (182-369) K/mm3 MPV (9.4-12.3) fl Neut % (Auto) (34.0-71.1) % Lymph % (Auto) (19.3-51.7) % [place] % (Auto) (4.7-12.5) % Eos % (Auto) (0.7-5.8) Baso % (Auto) (0.1-1.2) % Neut # (Auto) (1.56-6.13) K/mm3 Lymph # (Auto) (1.18-3.74) K/mm3 [place] # (Auto) (0.24-0.36) K/mm3 Eos # (Auto) (0.04-0.36) K/mm3 Baso # (Auto) (0.01-0.08) K/mm3 Manual Slide Review Fibrinogen (187-446) mg/dL D-Dimer, Quantitative (0.19-0.50) mg/L Puncture Site ABG pH (7.35-7.45) ABG pCO2 (35.0-45.0) mmHg ABG pO2 (80.0-100.0) mmHg ABG HCO3 (22.0-26.0) meq/L ABG O2 Saturation (96.0-97.0) % ABG Base Excess (-2-2.0) Hemant Test A-a Gradient mmHg O2 Delivery Device Sodium 140 (136-145) mEq/L Potassium 3.2 L (3.5-5.1) mEq/L Chloride 102 (98-107) mEq/L Carbon Dioxide 23 (21-32) mEq/L Anion Gap 18.2 H (5-15) BUN 10 (7-18) mg/dL Creatinine 1.0 (0.55-1.02) mg/dL Est Cr Clr Drug Dosing 55.54 mL/min Estimated GFR (MDRD) 58 (>60) mL/min BUN/Creatinine Ratio 10.0 L (14-18) Glucose 109 H (74-106) mg/dL Calcium 8.5 (8.5-10.1) mg/dL Magnesium 1.9 (1.8-2.4) mg/dl Ferritin 603 H (8-252) ng/ml Total Bilirubin 0.5 (0.2-1.0) mg/dL AST 43 H (15-37) U/L ALT 73 H (14-59) U/L Alkaline Phosphatase 45 L (46-116) U/L Lactate Dehydrogenase 282 H (81-234) U/L C-Reactive Protein 6.2 H* (<1.0) mg/dL Total Protein 6.9 (6.4-8.2) g/dl Albumin 3.0 L (3.4-5.0) g/dl Globulin 3.9 gm/dL Albumin/Globulin Ratio 0.8 L (1-2) Blood Type A POSITIVE Result Diagrams: 08/06/20 12:48 08/06/20 12:48 Sepsis Event Note - Evaluation Sepsis Screening Result: No Definite Risk - Focused Exam Vital Signs: Vital Signs Temp Pulse Resp BP Pulse Ox 08/06/20 11:12 98.6 F 116 H 33 H 135/69 93 L - Problem List (1) Asthma SNOMED Code(s): 054815865 ICD Code: J45.909 - UNSPECIFIED ASTHMA, UNCOMPLICATED Status: Acute Priority: High Current Visit: Yes Qualifiers: Asthma severity: unspecified severity Asthma persistence: unspecified Asthma complication type: unspecified Qualified Code(s): J45.909 - Unspecified asthma, uncomplicated (2) COVID-19 SNOMED Code(s): 569763210 ICD Code: U07.1 - COVID-19 Status: Acute Priority: High Current Visit: Yes (3) Hypoxia SNOMED Code(s): 987990108 ICD Code: R09.02 - HYPOXEMIA Status: Acute Priority: High Current Visit: Yes Problem List Initiated/Reviewed/Updated: Yes Orders Last 24hrs: Active Orders 24 hr Category Date Time Status Admission Status [Patient Status] [ADT] Routine ADT 08/06/20 12:24 Active Patient Status [ADT] Routine ADT 08/06/20 14:05 Active Cardiac Monitoring [RC] CONTINUOUS Care 08/06/20 14:08 Active Height and Weight [RC] DAILY Care 08/06/20 14:05 Active Incentive Spirometry [RT Incentive Spirometry] [RC] Care 08/06/20 14:29 Active Q1HWA Intake and Output [RC] QSHIFT Care 08/06/20 14:08 Active Nurse Communication: Isolation [RC] ASDIRECTED Care 08/06/20 14:26 Active Oxygen Therapy [RC] PRN Care 08/06/20 14:05 Active Oxygen Therapy, ED [RC] ASDIRECTED Care 08/06/20 12:23 Active Peripheral IV Care [RC] . DIRECTED Care 08/06/20 12:16 Active Pulse Oximetry [RC] CONTINUOUS Care 08/06/20 14:08 Active RT Aerosol Therapy [RC] ASDIRECTED Care 08/06/20 14:09 Active Up With Assistance [RC] ,21 Care 08/06/20 14:05 Active VTE/DVT Education [RC] PER UNIT ROUTINE Care 08/06/20 14:05 Active Verify Patient Consent Obtain [RC] ASDIRECTED Care 08/06/20 14:25 Active Vital Signs [RC] Q4H Care 08/06/20 14:05 Active Consult to Case Management/Sea Foam Kiss Maker [CONS] Cons 08/06/20 14:05 Active Routine Consult to Cigar Making Machine Supervisor [CONS] Routine Cons 08/06/20 14:05 Active Consult to Spiritual Care [CONS] Routine Cons 08/06/20 14:05 Active OT Evaluation and Treatment [CONS] Routine Cons 08/06/20 14:05 Active PT Evaluation and Treatment [CONS] Routine Cons 08/06/20 14:05 Active Respiratory Care Assess and Treatment [CONS] Routine Cons 08/06/20 14:05 Active Regular Diet [DIET] Diet 08/06/20 Dinner Active Chest 1V Frontal [CR] Stat Exams 08/06/20 11:42 Taken ABO/RH TYPE [BBK] Routine Lab 08/06/20 12:48 Results C-REACTIVE PROTEIN [CHEM] DAILY Lab 08/07/20 05:11 Ordered C-REACTIVE PROTEIN [CHEM] DAILY Lab 08/08/20 05:11 Ordered C-REACTIVE PROTEIN [CHEM] DAILY Lab 08/09/20 05:11 Ordered C-REACTIVE PROTEIN [CHEM] DAILY Lab 08/10/20 05:11 Ordered C-REACTIVE PROTEIN [CHEM] DAILY Lab 08/11/20 05:11 Ordered CBC W/O DIFF,HEMOGRAM [HEME] DAILY Lab 08/07/20 05:11 Ordered CBC W/O DIFF,HEMOGRAM [HEME] DAILY Lab 08/08/20 05:11 Ordered CBC W/O DIFF,HEMOGRAM [HEME] DAILY Lab 08/09/20 05:11 Ordered CBC W/O DIFF,HEMOGRAM [HEME] DAILY Lab 08/10/20 05:11 Ordered CBC W/O DIFF,HEMOGRAM [HEME] DAILY Lab 08/11/20 05:11 Ordered COMPREHENSIVE METABOLIC PN,CMP [CHEM] DAILY Lab 08/07/20 05:11 Ordered COMPREHENSIVE METABOLIC PN,CMP [CHEM] DAILY Lab 08/08/20 05:11 Ordered COMPREHENSIVE METABOLIC PN,CMP [CHEM] DAILY Lab 08/09/20 05:11 Ordered COMPREHENSIVE METABOLIC PN,CMP [CHEM] DAILY Lab 08/10/20 05:11 Ordered COMPREHENSIVE METABOLIC PN,CMP [CHEM] DAILY Lab 08/11/20 05:11 Ordered CULTURE BLOOD [BC] Stat Lab 08/06/20 12:48 Received CULTURE BLOOD [BC] Stat Lab 08/06/20 12:55 Received D-DIMER QUANTITATIVE [COAG] DAILY Lab 08/07/20 05:11 Ordered D-DIMER QUANTITATIVE [COAG] DAILY Lab 08/08/20 05:11 Ordered D-DIMER QUANTITATIVE [COAG] DAILY Lab 08/09/20 05:11 Ordered D-DIMER QUANTITATIVE [COAG] DAILY Lab 08/10/20 05:11 Ordered D-DIMER QUANTITATIVE [COAG] DAILY Lab 08/11/20 05:11 Ordered FRESH FROZEN PLASMA [BBK] Routine Lab 08/06/20 12:48 Results MAGNESIUM [CHEM] DAILY Lab 08/07/20 05:11 Ordered MAGNESIUM [CHEM] DAILY Lab 08/08/20 05:11 Ordered MAGNESIUM [CHEM] DAILY Lab 08/09/20 05:11 Ordered MAGNESIUM [CHEM] DAILY Lab 08/10/20 05:11 Ordered MAGNESIUM [CHEM] DAILY Lab 08/11/20 05:11 Ordered PHOSPHORUS [CHEM] DAILY Lab 08/07/20 05:11 Ordered PHOSPHORUS [CHEM] DAILY Lab 08/08/20 05:11 Ordered PHOSPHORUS [CHEM] DAILY Lab 08/09/20 05:11 Ordered PHOSPHORUS [CHEM] DAILY Lab 08/10/20 05:11 Ordered PHOSPHORUS [CHEM] DAILY Lab 08/11/20 05:11 Ordered PROCALCITONIN [REF] Stat Lab 08/06/20 12:48 Received Acetaminophen [TylenoL] Med 08/06/20 14:05 Active 650 mg PO Q4H PRN Albuterol [Proventil Neb Soln] Med 08/06/20 14:05 Active 2.5 mg NEB Q2H PRN Azithromycin [Zithromax] 500 mg Med 08/06/20 15:00 Active Sodium Chloride 0.9% [Normal Saline] 250 ml IV Q24H Enoxaparin [Lovenox] Med 08/06/20 14:45 Active 30 mg SUBCUT Q12H Ondansetron [Zofran] Med 08/06/20 14:05 Active 4 mg IV Q6H PRN Potassium Chloride [Klor-Con M20] Med 08/06/20 20:00 Ordered 40 meq PO ONETIME Potassium Chloride [Klor-Con M20] Med 08/06/20 23:59 Once 40 meq PO ONETIME ONE Potassium Chloride [Klor-Con M20] Med 08/06/20 15:41 Stat 40 meq PO ONETIME STA Remdesivir (Eua) [Remdesivir (EUA)] 100 mg Med 08/07/20 14:00 Active Sodium Chloride 0.9% [Normal Saline] 100 ml IV Q24H Sodium Chloride 0.9% [Saline Flush] Med 08/06/20 12:16 Active 10 ml FLUSH ASDIRECTED PRN cefTRIAXone [Rocephin] 2 gm Med 08/06/20 14:45 Active Sodium Chloride 0.9% [Normal Saline] 100 ml IV Q24H dexAMETHasone Med 08/07/20 14:00 Active 6 mg PO Q24H Blood Culture x2 Reflex Set [OM.PC] Stat Ot 08/06/20 12:23 Ordered Isolation [COMM] Stat Ot 08/06/20 14:25 Ordered Peripheral IV Insertion Adult [OM.PC] Routine Oth 08/06/20 12:16 Ordered Transfuse Fresh Frozen Plasma [COMM] Routine Oth 08/06/20 14:25 Ordered Resuscitation Status Routine Resus Stat 08/06/20 14:05 Ordered Medication Orders Acetaminophen (Tylenol) 650 mg PO Q4H PRN PRN Reason: Pain (Mild 1-3)/fever Albuterol (Proventil Neb Soln) 2.5 mg NEB Q2H PRN PRN Reason: Shortness Of Breath/wheezing Dexamethasone (Dexamethasone) 6 mg PO Q24H BRUNILDA Stop: 08/15/20 14:01 Enoxaparin Sodium (Lovenox) 30 mg SUBCUT Q12H BRUNILDA Remdesivir 100 mg/ Sodium (Chloride) 100 mls @ 100 mls/hr IV Q24H BRUNILDA Stop: 08/10/20 14:59 Ceftriaxone Sodium 2 gm/ (Sodium Chloride) 100 mls @ 200 mls/hr IV Q24H BRUNILDA Stop: 08/10/20 15:14 Azithromycin 500 mg/ Sodium (Chloride) 250 mls @ 250 mls/hr IV Q24H BRUNILDA Stop: 08/10/20 15:59 Ondansetron HCl (Zofran) 4 mg IV Q6H PRN PRN Reason: Nausea/Vomiting Potassium Chloride (Klor-Con M20) 40 meq PO ONETIME STA Stop: 08/06/20 15:42 Potassium Chloride (Klor-Con M20) 40 meq PO ONETIME BRUNILDA Potassium Chloride (Klor-Con M20) 40 meq PO ONETIME ONE Stop: 08/07/20 00:00 Sodium Chloride (Saline Flush) 10 ml FLUSH ASDIRECTED PRN PRN Reason: Keep Vein Open Last Admin: 08/06/20 14:18 Dose: 10 ml Documented by: HI Assessment/Plan Comment:: 08/06/20 * 1 week history of general malaise, sore throat, shortness of breath, cough, and diarrhea. * has COVID * Was seen in the ER 3 days ago and tested for COVID * Has been on prednisone from her primary care provider * To saturations dropping into the 80s on room air while in the emergency department * History of asthma * Chest x-ray shows groundglass airspace disease with mid and lower lung pettit bilaterally Lab results: * CBC is unremarkable * Fibrinogen 491 * D-dimer 0.32 * Potassium 3.2 * BUN 10 * Creatinine 1.0 * Magnesium 1.9 * Ferritin 603 * AST 43 * ALT 73 * LDH 282 * C-reactive protein 6.2 Arterial blood gases * pH 7.46 * PCO2 32.7 * PO2 of 60.0 * HCO3 22.7 * On room air. Vital signs: * Temp 98.6 * Pulse 116 * Respiratory rate 33 * Blood pressure 135/69 Plan: * Start Remdesivir * Convalescent plasma * Dexamethasone * Zithromax 500 mg IV daily for 3 days * Rocephin 2 g IV every 24 hours x5 days * Repeat labs in the a.m. * Potassium 40 mEq now p.o. and repeat in 4 hours x 2 doses. * Incentive spirometer every 1 hour while awake * Monitor her for hypoxia * Respiratory care to titrate O2 * Albuterol nebulizers as needed * Repeat chest x-ray as needed * Repeat blood gases as needed * regulatory services consultant consult for discharge planning * Dietary consult for adequate caloric needs [facility] and COVID viral pneumonia. Patient will likely be here greater than 96 hours due to treatment plan and regimen. - Mortality Measure Prognosis:: Good
[2020-08-06] MEDS ORDERED: Sodium Chloride 0.9% 250 ML ONE (16:32)
[2020-08-06] MEDS: Enoxaparin 30 MG/0.3 ML Syringe SUBCUT SCH (17:42)
[2020-08-06] MEDS: Azithromycin 500 MG in Sodium Chloride 0.9% 250 ML IV SCH ×2 (18:51→18:52)
[2020-08-06] MEDS ORDERED: Potassium Chloride 20 MEQ Tab.ER PO ONE ×2 (20:00→23:59)
[2020-08-07] MEDS: Acetaminophen 325 MG Tab PO PRN ×4 (00:05→19:51)
[2020-08-07] MEDS: Enoxaparin 30 MG/0.3 ML Syringe SUBCUT SCH ×2 (02:55→14:21)
--- NOTE | 2020-08-07 09:13 | PCM.PN ---
- General Info Date of Service: 08/07/20 Admission Dx/Problem (Free Text): Admission Diagnosis/Problem Admission Diagnosis/Problem Hypoxia Subjective Update: Patient is a 54-year-old lady who was admitted yesterday secondary to hypoxia associated with COVID-19. Patient's also has COVID-19. The patient today says that she is feeling better. She is still on oxygen. The patient has been tolerating diet. She has denied any pain. Functional Status: Reports: Pain Controlled, Tolerating Diet - Review of Systems General: Reports: Weakness HEENT: Reports: No Symptoms Pulmonary: Reports: Shortness of Breath, Cough Cardiovascular: Reports: No Symptoms Gastrointestinal: Reports: No Symptoms Genitourinary: Reports: No Symptoms Musculoskeletal: Reports: Back Pain (Chronic) Skin: Reports: No Symptoms Neurological: Reports: No Symptoms Psychiatric: Reports: No Symptoms - Patient Data Vitals - Most Recent: Last Vital Signs Temp 35.7 C L 08/07/20 03:00 Pulse 82 08/07/20 07:37 Resp 22 H 08/07/20 07:37 BP 102/78 08/07/20 07:37 Pulse Ox 95 08/07/20 07:37 Weight - Most Recent: 103.136 kg I&O - Last 24 Hours: Intake & Output 08/06/20 08/07/20 08/07/20 22:59 06:59 14:59 Intake Total 535 1465 Output Total 250 500 Balance 285 965 Lab Results Last 24 Hours: Laboratory Results - last 24 hr 08/06/20 08/06/20 08/06/20 Range/Units 12:32 12:48 12:48 WBC 8.92 (3.98-10.04) K/mm3 RBC 4.56 (3.98-5.22) M/mm3 Hgb 13.5 (11.2-15.7) gm/dl Hct 41.2 (34.1-44.9) % MCV 90.4 (79.4-94.8) fl MCH 29.6 (25.6-32.2) pg MCHC 32.8 (32.2-35.5) g/dl RDW Std Deviation 45.8 (36.4-46.3) fL Plt Count 247 (182-369) K/mm3 MPV 9.4 (9.4-12.3) fl Neut % (Auto) 79.1 H (34.0-71.1) % Lymph % (Auto) 9.1 L (19.3-51.7) % Early % (Auto) 9.3 (4.7-12.5) % Eos % (Auto) 0.6 L (0.7-5.8) Baso % (Auto) 0.1 (0.1-1.2) % Neut # (Auto) 7.06 H (1.56-6.13) K/mm3 Lymph # (Auto) 0.81 L (1.18-3.74) K/mm3 Early # (Auto) 0.83 H (0.24-0.36) K/mm3 Eos # (Auto) 0.05 (0.04-0.36) K/mm3 Baso # (Auto) 0.01 (0.01-0.08) K/mm3 Manual Slide Review Abnormal smear Fibrinogen 491 H (187-446) mg/dL D-Dimer, Quantitative 0.32 (0.19-0.50) mg/L Puncture Site Rt radial ABG pH 7.46 H (7.35-7.45) ABG pCO2 32.7 L (35.0-45.0) mmHg ABG pO2 60.0 L (80.0-100.0) mmHg ABG HCO3 22.7 (22.0-26.0) meq/L ABG O2 Saturation 91.5 L (96.0-97.0) % ABG Base Excess -0.1 (-2-2.0) Hemant Test Positive A-a Gradient 49 mmHg O2 Delivery Device Room air Sodium (136-145) mEq/L Potassium (3.5-5.1) mEq/L Chloride (98-107) mEq/L Carbon Dioxide (21-32) mEq/L Anion Gap (5-15) BUN (7-18) mg/dL Creatinine (0.55-1.02) mg/dL Est Cr Clr Drug Dosing mL/min Estimated GFR (MDRD) (>60) mL/min BUN/Creatinine Ratio (14-18) Glucose (74-106) mg/dL Calcium (8.5-10.1) mg/dL Phosphorus (2.6-4.7) mg/dL Magnesium (1.8-2.4) mg/dl Ferritin (8-252) ng/ml Total Bilirubin (0.2-1.0) mg/dL AST (15-37) U/L ALT (14-59) U/L Alkaline Phosphatase (46-116) U/L Lactate Dehydrogenase (81-234) U/L C-Reactive Protein (<1.0) mg/dL Total Protein (6.4-8.2) g/dl Albumin (3.4-5.0) g/dl Globulin gm/dL Albumin/Globulin Ratio (1-2) Blood Type 08/06/20 08/06/20 08/06/20 Range/Units 12:48 12:48 12:48 WBC (3.98-10.04) K/mm3 RBC (3.98-5.22) M/mm3 Hgb (11.2-15.7) gm/dl Hct (34.1-44.9) % MCV (79.4-94.8) fl MCH (25.6-32.2) pg MCHC (32.2-35.5) g/dl RDW Std Deviation (36.4-46.3) fL Plt Count (182-369) K/mm3 MPV (9.4-12.3) fl Neut % (Auto) (34.0-71.1) % Lymph % (Auto) (19.3-51.7) % Early % (Auto) (4.7-12.5) % Eos % (Auto) (0.7-5.8) Baso % (Auto) (0.1-1.2) % Neut # (Auto) (1.56-6.13) K/mm3 Lymph # (Auto) (1.18-3.74) K/mm3 Early # (Auto) (0.24-0.36) K/mm3 Eos # (Auto) (0.04-0.36) K/mm3 Baso # (Auto) (0.01-0.08) K/mm3 Manual Slide Review Fibrinogen (187-446) mg/dL D-Dimer, Quantitative (0.19-0.50) mg/L Puncture Site ABG pH (7.35-7.45) ABG pCO2 (35.0-45.0) mmHg ABG pO2 (80.0-100.0) mmHg ABG HCO3 (22.0-26.0) meq/L ABG O2 Saturation (96.0-97.0) % ABG Base Excess (-2-2.0) Hemant Test A-a Gradient mmHg O2 Delivery Device Sodium 140 (136-145) mEq/L Potassium 3.2 L (3.5-5.1) mEq/L Chloride 102 (98-107) mEq/L Carbon Dioxide 23 (21-32) mEq/L Anion Gap 18.2 H (5-15) BUN 10 (7-18) mg/dL Creatinine 1.0 (0.55-1.02) mg/dL Est Cr Clr Drug Dosing 55.54 mL/min Estimated GFR (MDRD) 58 (>60) mL/min BUN/Creatinine Ratio 10.0 L (14-18) Glucose 109 H (74-106) mg/dL Calcium 8.5 (8.5-10.1) mg/dL Phosphorus (2.6-4.7) mg/dL Magnesium 1.9 (1.8-2.4) mg/dl Ferritin 603 H (8-252) ng/ml Total Bilirubin 0.5 (0.2-1.0) mg/dL AST 43 H (15-37) U/L ALT 73 H (14-59) U/L Alkaline Phosphatase 45 L (46-116) U/L Lactate Dehydrogenase 282 H (81-234) U/L C-Reactive Protein 6.2 H* (<1.0) mg/dL Total Protein 6.9 (6.4-8.2) g/dl Albumin 3.0 L (3.4-5.0) g/dl Globulin 3.9 gm/dL Albumin/Globulin Ratio 0.8 L (1-2) Blood Type A POSITIVE 08/07/20 08/07/20 08/07/20 Range/Units 03:41 03:41 03:41 WBC 6.09 (3.98-10.04) K/mm3 RBC 4.28 (3.98-5.22) M/mm3 Hgb 12.6 (11.2-15.7) gm/dl Hct 39.3 (34.1-44.9) % MCV 91.8 (79.4-94.8) fl MCH 29.4 (25.6-32.2) pg MCHC 32.1 L (32.2-35.5) g/dl RDW Std Deviation 46.1 (36.4-46.3) fL Plt Count 232 (182-369) K/mm3 MPV 9.4 (9.4-12.3) fl Neut % (Auto) (34.0-71.1) % Lymph % (Auto) (19.3-51.7) % Early % (Auto) (4.7-12.5) % Eos % (Auto) (0.7-5.8) Baso % (Auto) (0.1-1.2) % Neut # (Auto) (1.56-6.13) K/mm3 Lymph # (Auto) (1.18-3.74) K/mm3 Early # (Auto) (0.24-0.36) K/mm3 Eos # (Auto) (0.04-0.36) K/mm3 Baso # (Auto) (0.01-0.08) K/mm3 Manual Slide Review Fibrinogen (187-446) mg/dL D-Dimer, Quantitative 0.24 (0.19-0.50) mg/L Puncture Site ABG pH (7.35-7.45) ABG pCO2 (35.0-45.0) mmHg ABG pO2 (80.0-100.0) mmHg ABG HCO3 (22.0-26.0) meq/L ABG O2 Saturation (96.0-97.0) % ABG Base Excess (-2-2.0) Hemant Test A-a Gradient mmHg O2 Delivery Device Sodium 141 (136-145) mEq/L Potassium 4.6 (3.5-5.1) mEq/L Chloride 106 (98-107) mEq/L Carbon Dioxide 25 (21-32) mEq/L Anion Gap 14.6 (5-15) BUN 12 (7-18) mg/dL Creatinine 0.9 (0.55-1.02) mg/dL Est Cr Clr Drug Dosing 62.15 mL/min Estimated GFR (MDRD) > 60 (>60) mL/min BUN/Creatinine Ratio 13.3 L (14-18) Glucose 129 H (74-106) mg/dL Calcium 8.4 L (8.5-10.1) mg/dL Phosphorus 3.7 (2.6-4.7) mg/dL Magnesium 2.2 (1.8-2.4) mg/dl Ferritin (8-252) ng/ml Total Bilirubin 0.3 (0.2-1.0) mg/dL AST 26 (15-37) U/L ALT 63 H (14-59) U/L Alkaline Phosphatase 49 (46-116) U/L Lactate Dehydrogenase (81-234) U/L C-Reactive Protein 8.6 H* (<1.0) mg/dL Total Protein 6.9 (6.4-8.2) g/dl Albumin 2.9 L (3.4-5.0) g/dl Globulin 4.0 gm/dL Albumin/Globulin Ratio 0.7 L (1-2) Blood Type Med Orders - Current: Current Medications Acetaminophen (Tylenol) 650 mg PO Q4H PRN PRN Reason: Pain (Mild 1-3)/fever Last Admin: 08/07/20 08:04 Dose: 650 mg Documented by: Albuterol (Proventil Neb Soln) 2.5 mg NEB Q2H PRN PRN Reason: Shortness Of Breath/wheezing Dexamethasone (Dexamethasone) 6 mg PO Q24H [facility] Stop: 08/15/20 14:01 Enoxaparin Sodium (Lovenox) 30 mg SUBCUT Q12H [facility] Last Admin: 08/07/20 02:55 Dose: 30 mg Documented by: Remdesivir 100 mg/ Sodium (Chloride) 100 mls @ 100 mls/hr IV Q24H [facility] Stop: 08/10/20 14:59 Azithromycin 500 mg/ Sodium (Chloride) 250 mls @ 250 mls/hr IV Q24H [facility] Stop: 08/10/20 15:59 Last Admin: 08/06/20 18:52 Dose: Not Given Documented by: Sodium Chloride (Normal Saline) 25 mls @ 25 mls/hr IV ASDIRECTED [facility] Ondansetron HCl (Zofran) 4 mg IV Q6H PRN PRN Reason: Nausea/Vomiting Sodium Chloride (Saline Flush) 10 ml FLUSH ASDIRECTED PRN PRN Reason: Keep Vein Open Last Admin: 08/06/20 14:18 Dose: 10 ml Documented by: Discontinued Medications Azithromycin (Zithromax) 500 mg IV Q24H [facility] Stop: 08/09/20 14:31 Last Admin: 08/07/20 06:31 Dose: Not Given Documented by: Dexamethasone (Dexamethasone) 6 mg IVPUSH ONETIME ONE Stop: 08/06/20 12:29 Last Admin: 08/06/20 14:18 Dose: 6 mg Documented by: Remdesivir 200 mg/ Sodium (Chloride) 250 mls @ 250 mls/hr IV ONETIME ONE Stop: 08/06/20 13:59 Last Admin: 08/06/20 15:29 Dose: 250 mls/hr Documented by: Ceftriaxone Sodium 2 gm/ (Sodium Chloride) 100 mls @ 200 mls/hr IV Q24H [facility] Stop: 08/10/20 15:14 Last Admin: 08/06/20 17:34 Dose: 200 mls/hr Documented by: Sodium Chloride (Normal Saline) Confirm Administered Dose 250 mls @ as directed .ROUTE .STK-MED ONE Stop: 08/06/20 16:33 Last Admin: 08/06/20 18:48 Dose: 300 mls/hr Documented by: Potassium Chloride (Klor-Con M20) 40 meq PO ONETIME STA Stop: 08/06/20 15:42 Last Admin: 08/06/20 17:39 Dose: 40 meq Documented by: Potassium Chloride (Klor-Con M20) 40 meq PO ONETIME ONE Stop: 08/06/20 20:01 Last Admin: 08/06/20 20:06 Dose: 40 meq Documented by: Potassium Chloride (Klor-Con M20) 40 meq PO ONETIME ONE Stop: 08/07/20 00:00 Last Admin: 08/06/20 23:58 Dose: 40 meq Documented by: - Exam Quality Assessment: Supplemental Oxygen General: Alert, Oriented, Cooperative, No Acute Distress HEENT: Pupils Equal, Pupils Reactive. No: Mucous Membr. Moist/Amonate (Dry) Neck: Supple, Trachea Midline Lungs: Normal Respiratory Effort, Rales Cardiovascular: Regular Rate, Regular Rhythm GI/Abdominal Exam: Normal Bowel Sounds, Soft, No Distention (Female) Exam: Deferred Back Exam: Normal Inspection, Full Range of Motion Extremities: Normal Inspection, No Pedal Edema Skin: Warm, Dry, Intact Neurological: No New Focal Deficit Psy/Mental Status: Alert, Normal Affect, Normal Mood Sepsis Event Note - Evaluation Sepsis Screening Result: No Definite Risk - Focused Exam Vital Signs: Vital Signs Temp Temp Pulse Pulse Resp BP BP 08/07/20 07:37 82 22 H 102/78 08/07/20 07:36 81 20 08/07/20 07:35 89 17 08/07/20 07:00 66 20 08/07/20 06:30 62 20 08/07/20 06:00 59 L 20 08/07/20 05:30 65 21 H 08/07/20 05:00 66 22 H 08/07/20 04:30 63 20 08/07/20 04:01 68 22 H 121/59 L 08/07/20 04:00 70 19 08/07/20 03:30 65 19 08/07/20 03:04 67 20 123/77 08/07/20 03:03 71 20 08/07/20 03:00 35.7 C L 67 70 21 H 123/77 08/07/20 02:30 67 23 H 08/07/20 02:00 73 20 08/07/20 01:30 71 23 H 08/07/20 01:00 75 25 H 08/07/20 00:30 79 25 H 08/07/20 00:01 83 21 H 111/66 08/07/20 00:00 84 23 H 08/06/20 23:59 36.6 C 83 25 H 111/66 08/06/20 23:30 81 23 H 08/06/20 23:00 82 22 H 08/06/20 22:30 80 25 H 08/06/20 22:27 81 24 H 113/66 08/06/20 22:26 79 26 H 08/06/20 22:01 84 22 H 116/60 08/06/20 22:00 83 25 H 08/06/20 21:57 81 25 H 111/73 08/06/20 21:56 36.0 C L 80 84 18 111/73 08/06/20 21:51 36.2 C 79 26 H 116/60 08/06/20 21:42 36.3 C 84 18 135/80 08/06/20 21:40 81 21 H 135/80 08/06/20 21:39 13 08/06/20 21:30 81 26 H Pulse Ox 08/07/20 07:37 95 08/07/20 07:36 93 L 08/07/20 07:35 91 L 08/07/20 07:00 94 L 08/07/20 06:30 95 08/07/20 06:00 94 L 08/07/20 05:30 94 L 08/07/20 05:00 94 L 08/07/20 04:30 95 08/07/20 04:01 97 08/07/20 04:00 93 L 08/07/20 03:30 94 L 08/07/20 03:04 94 L 08/07/20 03:03 90 L 08/07/20 03:00 94 L 08/07/20 02:30 92 L 08/07/20 02:00 94 L 08/07/20 01:30 92 L 08/07/20 01:00 92 L 08/07/20 00:30 91 L 08/07/20 00:01 91 L 08/07/20 00:00 92 L 08/06/20 23:59 93 L 08/06/20 23:30 90 L 08/06/20 23:00 91 L 08/06/20 22:30 92 L 08/06/20 22:27 93 L 08/06/20 22:26 91 L 08/06/20 22:01 91 L 08/06/20 22:00 92 L 08/06/20 21:57 92 L 08/06/20 21:56 91 L 08/06/20 21:51 08/06/20 21:42 08/06/20 21:40 92 L 08/06/20 21:39 08/06/20 21:30 91 L - Problem List & Annotations (1) COVID-19 SNOMED Code(s): 433873560 Code(s): U07.1 - COVID-19 Status: Acute Priority: High Current Visit: Yes (2) Hypoxia SNOMED Code(s): 270163361 Code(s): R09.02 - HYPOXEMIA Status: Acute Priority: High Current Visit: Yes - Problem List Review Problem List Initiated/Reviewed/Updated: Yes - Plan Plan:: 08/06/20 * 1 week history of general malaise, sore throat, shortness of breath, cough, and diarrhea. * has COVID * Was seen in the ER 3 days ago and tested for COVID * Has been on prednisone from her primary care provider * To saturations dropping into the 80s on room air while in the emergency department * History of asthma * Chest x-ray shows groundglass airspace disease with mid and lower lung pettit bilaterally Lab results: * CBC is unremarkable * Fibrinogen 491 * D-dimer 0.32 * Potassium 3.2 * BUN 10 * Creatinine 1.0 * Magnesium 1.9 * Ferritin 603 * AST 43 * ALT 73 * LDH 282 * C-reactive protein 6.2 Arterial blood gases * pH 7.46 * PCO2 32.7 * PO2 of 60.0 * HCO3 22.7 * On room air. Vital signs: * Temp 98.6 * Pulse 116 * Respiratory rate 33 * Blood pressure 135/69 Plan: * Start Remdesivir * Convalescent plasma * Dexamethasone * Zithromax 500 mg IV daily for 3 days * Rocephin 2 g IV every 24 hours x5 days * Repeat labs in the a.m. * Potassium 40 mEq now p.o. and repeat in 4 hours x 2 doses. * Incentive spirometer every 1 hour while awake * Monitor her for hypoxia * Respiratory care to titrate O2 * Albuterol nebulizers as needed * Repeat chest x-ray as needed * Repeat blood gases as needed * professional services manager consult for discharge planning * Dietary consult for adequate caloric needs [facility] and COVID viral pneumonia. Patient will likely be here greater than 96 hours due to treatment plan and regimen. 08/07/2020 Because of the patient's COVID-19 she will be maintained on the COVID-19 protocol. She was started yesterday on remdesivir and this will be continued. She is also on dexamethasone. We will continue oxygenation to keep her saturations around 90%. Patient has been encouraged to ambulate. She will have her regular diet as tolerated. I have also ordered repeat laboratory studies for the morning. Patient can be considered for discharge once she has completed a course of remdesivir.
[2020-08-07] MEDS: Albuterol 0.083% 2.5 MG/3 ML Neb Soln NEB PRN ×2 (13:11→18:58)
[2020-08-07] MEDS ORDERED: Sodium Chloride 0.9% 250 ML ONE (14:11)
[2020-08-07] MEDS: Dexamethasone 4 MG Tab PO SCH (14:21)
[2020-08-07] MEDS: REMDESIVIR (EUA) 100 MG in Sodium Chloride 0.9% 100 ML IV SCH (14:23)
[2020-08-07] MEDS: Azithromycin 500 MG in Sodium Chloride 0.9% 250 ML IV SCH (15:26)
[2020-08-07] MEDS: Montelukast 10 MG Tab PO SCH (21:06)
[2020-08-07] MEDS: Diltiazem 180 MG Cap.CD PO SCH (21:06)
[2020-08-08] MEDS: Enoxaparin 30 MG/0.3 ML Syringe SUBCUT SCH ×2 (02:19→14:02)
[2020-08-08] MEDS: Acetaminophen 325 MG Tab PO PRN ×2 (02:25→07:56)
[2020-08-08] MEDS: Albuterol 0.083% 2.5 MG/3 ML Neb Soln NEB PRN ×3 (02:31→20:24)
--- NOTE | 2020-08-08 07:32 | PCM.PN ---
- General Info Date of Service: 08/08/20 Admission Dx/Problem (Free Text): Admission Diagnosis/Problem Admission Diagnosis/Problem Hypoxia Subjective Update: Patient is a 54-year-old lady who was admitted to acute hospitalization on August 06, 2020. The patient had been started on oxygen initially and she is not on oxygen now. Her pain has been controlled. She is tolerating diet. She says that she feels improved. She has been wanting to have tramadol for her back pain. Functional Status: Reports: Pain Controlled, Tolerating Diet, Ambulating - Review of Systems General: Reports: No Symptoms HEENT: Reports: No Symptoms Pulmonary: Reports: No Symptoms Cardiovascular: Reports: No Symptoms Gastrointestinal: Reports: No Symptoms Genitourinary: Reports: No Symptoms Musculoskeletal: Reports: No Symptoms Skin: Reports: No Symptoms Neurological: Reports: No Symptoms Psychiatric: Reports: No Symptoms - Patient Data Vitals - Most Recent: Last Vital Signs Temp 36.2 C 08/08/20 04:00 Pulse 70 08/08/20 02:22 Resp 14 08/08/20 02:22 BP 117/66 08/08/20 02:22 Pulse Ox 96 08/08/20 02:32 Weight - Most Recent: 101.633 kg I&O - Last 24 Hours: Intake & Output 08/07/20 08/08/20 08/08/20 22:59 06:59 14:59 Intake Total 920 340 Output Total 2500 1300 Balance -1580 -960 Lab Results Last 24 Hours: Laboratory Results - last 24 hr 08/06/20 08/08/20 08/08/20 Range/Units 12:48 04:07 04:07 WBC 7.41 (3.98-10.04) K/mm3 RBC 4.45 (3.98-5.22) M/mm3 Hgb 12.9 (11.2-15.7) gm/dl Hct 40.8 (34.1-44.9) % MCV 91.7 (79.4-94.8) fl MCH 29.0 (25.6-32.2) pg MCHC 31.6 L (32.2-35.5) g/dl RDW Std Deviation 45.7 (36.4-46.3) fL Plt Count 286 (182-369) K/mm3 MPV 9.6 (9.4-12.3) fl D-Dimer, Quantitative (0.19-0.50) mg/L Sodium 142 (136-145) mEq/L Potassium 4.0 (3.5-5.1) mEq/L Chloride 106 (98-107) mEq/L Carbon Dioxide 24 (21-32) mEq/L Anion Gap 16.0 H (5-15) BUN 16 (7-18) mg/dL Creatinine 0.8 (0.55-1.02) mg/dL Est Cr Clr Drug Dosing 69.92 mL/min Estimated GFR (MDRD) > 60 (>60) mL/min BUN/Creatinine Ratio 20.0 H (14-18) Glucose 151 H (74-106) mg/dL Calcium 8.3 L (8.5-10.1) mg/dL Phosphorus 4.4 (2.6-4.7) mg/dL Magnesium 2.2 (1.8-2.4) mg/dl Total Bilirubin 0.3 (0.2-1.0) mg/dL AST 20 (15-37) U/L ALT 58 (14-59) U/L Alkaline Phosphatase 45 L (46-116) U/L C-Reactive Protein 4.4 H* (<1.0) mg/dL Total Protein 6.8 (6.4-8.2) g/dl Albumin 2.9 L (3.4-5.0) g/dl Globulin 3.9 gm/dL Albumin/Globulin Ratio 0.7 L (1-2) Procalcitonin <0.05 (<0.10) ng/mL 08/08/20 Range/Units 04:07 WBC (3.98-10.04) K/mm3 RBC (3.98-5.22) M/mm3 Hgb (11.2-15.7) gm/dl Hct (34.1-44.9) % MCV (79.4-94.8) fl MCH (25.6-32.2) pg MCHC (32.2-35.5) g/dl RDW Std Deviation (36.4-46.3) fL Plt Count (182-369) K/mm3 MPV (9.4-12.3) fl D-Dimer, Quantitative 0.20 (0.19-0.50) mg/L Sodium (136-145) mEq/L Potassium (3.5-5.1) mEq/L Chloride (98-107) mEq/L Carbon Dioxide (21-32) mEq/L Anion Gap (5-15) BUN (7-18) mg/dL Creatinine (0.55-1.02) mg/dL Est Cr Clr Drug Dosing mL/min Estimated GFR (MDRD) (>60) mL/min BUN/Creatinine Ratio (14-18) Glucose (74-106) mg/dL Calcium (8.5-10.1) mg/dL Phosphorus (2.6-4.7) mg/dL Magnesium (1.8-2.4) mg/dl Total Bilirubin (0.2-1.0) mg/dL AST (15-37) U/L ALT (14-59) U/L Alkaline Phosphatase (46-116) U/L C-Reactive Protein (<1.0) mg/dL Total Protein (6.4-8.2) g/dl Albumin (3.4-5.0) g/dl Globulin gm/dL Albumin/Globulin Ratio (1-2) Procalcitonin (<0.10) ng/mL Rafal Results Last 24 Hours: Microbiology 08/06/20 12:48 Aerobic Blood Culture - Preliminary Blood - Venous NO GROWTH AFTER 1 DAY Anaerobic Blood Culture - Preliminary NO GROWTH AFTER 1 DAY 08/06/20 12:55 Aerobic Blood Culture - Preliminary Blood - Venous - Lab Draw NO GROWTH AFTER 1 DAY Anaerobic Blood Culture - Preliminary NO GROWTH AFTER 1 DAY Med Orders - Current: Current Medications Acetaminophen (Tylenol) 650 mg PO Q4H PRN PRN Reason: Pain (Mild 1-3)/fever Last Admin: 08/08/20 02:25 Dose: 650 mg Documented by: Albuterol (Proventil Neb Soln) 2.5 mg NEB Q2H PRN PRN Reason: Shortness Of Breath/wheezing Last Admin: 08/08/20 02:31 Dose: 2.5 mg Documented by: Dexamethasone (Dexamethasone) 6 mg PO Q24H BRUNILDA Stop: 08/15/20 14:01 Last Admin: 08/07/20 14:21 Dose: 6 mg Documented by: Diltiazem HCl (Cardizem Cd) 360 mg PO DAILY@1400 BRUNILDA Last Admin: 08/07/20 21:06 Dose: 360 mg Documented by: Enoxaparin Sodium (Lovenox) 30 mg SUBCUT Q12H [facility] Last Admin: 08/08/20 02:19 Dose: 30 mg Documented by: Remdesivir 100 mg/ Sodium (Chloride) 100 mls @ 100 mls/hr IV Q24H [facility] Stop: 08/10/20 14:59 Last Admin: 08/07/20 14:23 Dose: 100 mls/hr Documented by: Sodium Chloride (Normal Saline) 25 mls @ 25 mls/hr IV ASDIRECTED BRUNILDA Montelukast Sodium (Singulair) 10 mg PO DAILY [facility] Last Admin: 08/07/20 21:06 Dose: 10 mg Documented by: Ondansetron HCl (Zofran) 4 mg IV Q6H PRN PRN Reason: Nausea/Vomiting Sodium Chloride (Saline Flush) 10 ml FLUSH ASDIRECTED PRN PRN Reason: Keep Vein Open Last Admin: 08/06/20 14:18 Dose: 10 ml Documented by: Discontinued Medications Azithromycin (Zithromax) 500 mg IV Q24H [facility] Stop: 08/09/20 14:31 Last Admin: 08/07/20 06:31 Dose: Not Given Documented by: Dexamethasone (Dexamethasone) 6 mg IVPUSH ONETIME ONE Stop: 08/06/20 12:29 Last Admin: 08/06/20 14:18 Dose: 6 mg Documented by: Remdesivir 200 mg/ Sodium (Chloride) 250 mls @ 250 mls/hr IV ONETIME ONE Stop: 08/06/20 13:59 Last Admin: 08/06/20 15:29 Dose: 250 mls/hr Documented by: Ceftriaxone Sodium 2 gm/ (Sodium Chloride) 100 mls @ 200 mls/hr IV Q24H [facility] Stop: 08/10/20 15:14 Last Admin: 08/06/20 17:34 Dose: 200 mls/hr Documented by: Azithromycin 500 mg/ Sodium (Chloride) 250 mls @ 250 mls/hr IV Q24H [facility] Stop: 08/10/20 15:59 Last Admin: 08/07/20 15:26 Dose: 250 mls/hr Documented by: Sodium Chloride (Normal Saline) Confirm Administered Dose 250 mls @ as directed .ROUTE .STK-MED ONE Stop: 08/06/20 16:33 Last Admin: 08/06/20 18:48 Dose: 300 mls/hr Documented by: Sodium Chloride (Normal Saline (Advbag)) Confirm Administered Dose 250 mls @ as directed .ROUTE .STK-MED ONE Stop: 08/07/20 14:12 Last Admin: 08/07/20 15:28 Dose: Not Given Documented by: Potassium Chloride (Klor-Con M20) 40 meq PO ONETIME STA Stop: 08/06/20 15:42 Last Admin: 08/06/20 17:39 Dose: 40 meq Documented by: Potassium Chloride (Klor-Con M20) 40 meq PO ONETIME ONE Stop: 08/06/20 20:01 Last Admin: 08/06/20 20:06 Dose: 40 meq Documented by: Potassium Chloride (Klor-Con M20) 40 meq PO ONETIME ONE Stop: 08/07/20 00:00 Last Admin: 08/06/20 23:58 Dose: 40 meq Documented by: - Exam Quality Assessment: No: Supplemental Oxygen General: Alert, Oriented, Cooperative HEENT: Pupils Equal, Pupils Reactive, EOMI, Mucous Membr. Moist/[place] Neck: Supple, Trachea Midline Lungs: Clear to Auscultation, Normal Respiratory Effort Cardiovascular: Regular Rate, Regular Rhythm GI/Abdominal Exam: Normal Bowel Sounds, Soft, No Distention (Female) Exam: Deferred Back Exam: Normal Inspection, Full Range of Motion Extremities: Normal Inspection, Normal Range of Motion, No Pedal Edema Skin: Warm, Dry, Intact Neurological: No New Focal Deficit Psy/Mental Status: Alert, Normal Affect, Normal Mood Sepsis Event Note - Evaluation Sepsis Screening Result: No Definite Risk - Focused Exam Vital Signs: Vital Signs Temp Pulse Resp BP Pulse Ox Pulse Ox 08/08/20 04:00 36.2 C 08/08/20 02:32 96 08/08/20 02:22 35.8 C L 70 14 117/66 97 08/07/20 23:00 35.9 C L 77 20 102/72 93 L - Problem List & Annotations (1) COVID-19 SNOMED Code(s): 954589174 Code(s): U07.1 - COVID-19 Status: Acute Priority: High Current Visit: Yes (2) Hypoxia SNOMED Code(s): 107945264 Code(s): R09.02 - HYPOXEMIA Status: Acute Priority: High Current Visit: Yes - Problem List Review Problem List Initiated/Reviewed/Updated: Yes - My Orders Last 24 Hours: My Active Orders 08/07/20 20:30 Montelukast [Singulair] 10 mg PO DAILY 08/07/20 21:00 Diltiazem [Cardizem CD] 360 mg PO DAILY@1400 - Plan Plan:: 08/06/20 * 1 week history of general malaise, sore throat, shortness of breath, cough, and diarrhea. * has COVID * Was seen in the ER 3 days ago and tested for COVID * Has been on prednisone from her primary care provider * To saturations dropping into the 80s on room air while in the emergency department * History of asthma * Chest x-ray shows groundglass airspace disease with mid and lower lung pettit bilaterally Lab results: * CBC is unremarkable * Fibrinogen 491 * D-dimer 0.32 * Potassium 3.2 * BUN 10 * Creatinine 1.0 * Magnesium 1.9 * Ferritin 603 * AST 43 * ALT 73 * LDH 282 * C-reactive protein 6.2 Arterial blood gases * pH 7.46 * PCO2 32.7 * PO2 of 60.0 * HCO3 22.7 * On room air. Vital signs: * Temp 98.6 * Pulse 116 * Respiratory rate 33 * Blood pressure 135/69 Plan: * Start Remdesivir * Convalescent plasma * Dexamethasone * Zithromax 500 mg IV daily for 3 days * Rocephin 2 g IV every 24 hours x5 days * Repeat labs in the a.m. * Potassium 40 mEq now p.o. and repeat in 4 hours x 2 doses. * Incentive spirometer every 1 hour while awake * Monitor her for hypoxia * Respiratory care to titrate O2 * Albuterol nebulizers as needed * Repeat chest x-ray as needed * Repeat blood gases as needed * guest services attendant consult for discharge planning * Dietary consult for adequate caloric needs The patient will be admitted to the [facility] floor for treatment of COVID and COVID viral pneumonia. Patient will likely be here greater than 96 hours due to treatment plan and regimen. 08/07/2020 Because of the patient's COVID-19 she will be maintained on the COVID-19 protocol. She was started yesterday on remdesivir and this will be continued. She is also on dexamethasone. We will continue oxygenation to keep her saturations around 90%. Patient has been encouraged to ambulate. She will have her regular diet as tolerated. I have also ordered repeat laboratory studies for the morning. Patient can be considered for discharge once she has completed a course of remdesivir. 08/08/2020 Overall, the patient is doing much better today. I explained to the patient that I want to continue the remdesivir until she has had 5 full doses. The patient is currently not on oxygen. Her vital signs will be monitored and if she desaturates or becomes hypoxic we will replace the oxygen. She has been encouraged to continue ambulation. Also will be kept on a regular diet. The patient will be considered for discharge tomorrow after her last dose of remdesivir. Because the patient has had an elevated D-dimer she will need to be on Xarelto. This will be a course of at least 31 days. I have ordered repeat laboratory testings for the morning. This is to include repeat of the D-dimer.
[2020-08-08] MEDS: Montelukast 10 MG Tab PO SCH ×2 (07:56→08:18)
[2020-08-08] MEDS ORDERED: traMADol 50 MG Tab PO PRN (11:13)
[2020-08-08] MEDS: Dexamethasone 4 MG Tab PO SCH (14:04)
[2020-08-08] MEDS: Diltiazem 180 MG Cap.CD PO SCH (14:04)
[2020-08-08] MEDS: REMDESIVIR (EUA) 100 MG in Sodium Chloride 0.9% 100 ML IV SCH (14:05)
[2020-08-09] MEDS: Enoxaparin 30 MG/0.3 ML Syringe SUBCUT SCH ×2 (05:01→17:15)
[2020-08-09] MEDS: Montelukast 10 MG Tab PO SCH (08:00)
[2020-08-09] MEDS: Albuterol 0.083% 2.5 MG/3 ML Neb Soln NEB PRN ×3 (09:26→20:22)
[2020-08-09] MEDS: Diltiazem 180 MG Cap.CD PO SCH (10:29)
[2020-08-09] MEDS: Dexamethasone 4 MG Tab PO SCH (13:28)
[2020-08-09] MEDS: REMDESIVIR (EUA) 100 MG in Sodium Chloride 0.9% 100 ML IV SCH (13:52)
--- NOTE | 2020-08-09 14:47 | PCM.PN ---
<Francia Chicas M - Last Filed: 08/09/20 14:52> - General Info Date of Service: 08/09/20 Admission Dx/Problem (Free Text): Admission Diagnosis/Problem Admission Diagnosis/Problem Hypoxia Subjective Update: Doing much better today on room air. Continues to use incentive spirometer. States appetite is almost back to normal. Functional Status: Reports: Pain Controlled, Tolerating Diet, Ambulating, Urinating, Incentive Spirometry - Review of Systems General: Reports: No Symptoms HEENT: Reports: No Symptoms Pulmonary: Reports: Wheezing Cardiovascular: Reports: No Symptoms Gastrointestinal: Reports: No Symptoms Genitourinary: Reports: No Symptoms Musculoskeletal: Reports: No Symptoms Skin: Reports: No Symptoms Neurological: Reports: No Symptoms Psychiatric: Reports: No Symptoms - Patient Data Vitals - Most Recent: Last Vital Signs Temp 97.6 F 08/09/20 03:00 Pulse 82 08/08/20 18:03 Resp 18 08/09/20 03:00 BP 122/92 H 08/09/20 03:00 Pulse Ox 93 L 08/09/20 13:45 Weight - Most Recent: 101.745 kg I&O - Last 24 Hours: Intake & Output 08/08/20 08/09/20 08/09/20 22:59 06:59 14:59 Intake Total 560 480 Output Total 400 Balance 160 480 Lab Results Last 24 Hours: Laboratory Results - last 24 hr 08/09/20 08/09/20 08/09/20 Range/Units 05:07 05:07 05:07 WBC 8.44 (3.98-10.04) K/mm3 RBC 4.69 (3.98-5.22) M/mm3 Hgb 13.8 (11.2-15.7) gm/dl Hct 43.0 (34.1-44.9) % MCV 91.7 (79.4-94.8) fl MCH 29.4 (25.6-32.2) pg MCHC 32.1 L (32.2-35.5) g/dl RDW Std Deviation 46.4 H (36.4-46.3) fL Plt Count 338 (182-369) K/mm3 MPV 9.7 (9.4-12.3) fl D-Dimer, Quantitative < 0.19 L (0.19-0.50) mg/L Sodium 141 (136-145) mEq/L Potassium 4.3 (3.5-5.1) mEq/L Chloride 104 (98-107) mEq/L Carbon Dioxide 25 (21-32) mEq/L Anion Gap 16.3 H (5-15) BUN 17 (7-18) mg/dL Creatinine 0.8 (0.55-1.02) mg/dL Est Cr Clr Drug Dosing 69.92 mL/min Estimated GFR (MDRD) > 60 (>60) mL/min BUN/Creatinine Ratio 21.3 H (14-18) Glucose 152 H (74-106) mg/dL Calcium 8.4 L (8.5-10.1) mg/dL Phosphorus 4.2 (2.6-4.7) mg/dL Magnesium 2.1 (1.8-2.4) mg/dl Total Bilirubin 0.3 (0.2-1.0) mg/dL AST 17 (15-37) U/L ALT 54 (14-59) U/L Alkaline Phosphatase 46 (46-116) U/L C-Reactive Protein 1.8 H* (<1.0) mg/dL Total Protein 7.0 (6.4-8.2) g/dl Albumin 3.0 L (3.4-5.0) g/dl Globulin 4.0 gm/dL Albumin/Globulin Ratio 0.8 L (1-2) Rafal Results Last 24 Hours: Microbiology 08/06/20 12:48 Aerobic Blood Culture - Preliminary Blood - Venous NO GROWTH AFTER 3 DAYS Anaerobic Blood Culture - Preliminary NO GROWTH AFTER 3 DAYS 08/06/20 12:55 Aerobic Blood Culture - Preliminary Blood - Venous - Lab Draw NO GROWTH AFTER 3 DAYS Anaerobic Blood Culture - Preliminary NO GROWTH AFTER 3 DAYS Med Orders - Current: Current Medications Acetaminophen (Tylenol) 650 mg PO Q4H PRN PRN Reason: Pain (Mild 1-3)/fever Last Admin: 08/08/20 07:56 Dose: 650 mg Documented by: Albuterol (Proventil Neb Soln) 2.5 mg NEB Q2H PRN PRN Reason: Shortness Of Breath/wheezing Last Admin: 08/09/20 13:44 Dose: 2.5 mg Documented by: Dexamethasone (Dexamethasone) 6 mg PO Q24H BRUNILDA Stop: 08/15/20 14:01 Last Admin: 08/09/20 13:28 Dose: 6 mg Documented by: Diltiazem HCl (Cardizem Cd) 360 mg PO DAILY PENDING SALE TO [facility] Last Admin: 08/09/20 10:29 Dose: 360 mg Documented by: Enoxaparin Sodium (Lovenox) 30 mg SUBCUT Q12H PENDING SALE TO [facility] Last Admin: 08/09/20 05:01 Dose: 30 mg Documented by: Remdesivir 100 mg/ Sodium (Chloride) 100 mls @ 100 mls/hr IV Q24H PENDING SALE TO [facility] Stop: 08/10/20 14:59 Last Admin: 08/09/20 13:52 Dose: 100 mls/hr Documented by: Montelukast Sodium (Singulair) 10 mg PO DAILY PENDING SALE TO [facility] Last Admin: 08/09/20 08:00 Dose: 10 mg Documented by: Ondansetron HCl (Zofran) 4 mg IV Q6H PRN PRN Reason: Nausea/Vomiting Sodium Chloride (Saline Flush) 10 ml FLUSH ASDIRECTED PRN PRN Reason: Keep Vein Open Last Admin: 08/06/20 14:18 Dose: 10 ml Documented by: Tramadol HCl (Ultram) 50 mg PO Q6H PRN PRN Reason: Pain (mild 1-3) Last Admin: 08/08/20 14:03 Dose: 50 mg Documented by: Discontinued Medications Azithromycin (Zithromax) 500 mg IV Q24H PENDING SALE TO [facility] Stop: 08/09/20 14:31 Last Admin: 08/07/20 06:31 Dose: Not Given Documented by: Dexamethasone (Dexamethasone) 6 mg IVPUSH ONETIME ONE Stop: 08/06/20 12:29 Last Admin: 08/06/20 14:18 Dose: 6 mg Documented by: Diltiazem HCl (Cardizem Cd) 360 mg PO DAILY@1400 PENDING SALE TO [facility] Last Admin: 08/08/20 14:04 Dose: 360 mg Documented by: Enoxaparin Sodium (Lovenox) 30 mg SUBCUT Q12H PENDING SALE TO [facility] Last Admin: 08/08/20 14:02 Dose: 30 mg Documented by: Remdesivir 200 mg/ Sodium (Chloride) 250 mls @ 250 mls/hr IV ONETIME ONE Stop: 08/06/20 13:59 Last Admin: 08/06/20 15:29 Dose: 250 mls/hr Documented by: Ceftriaxone Sodium 2 gm/ (Sodium Chloride) 100 mls @ 200 mls/hr IV Q24H PENDING SALE TO [facility] Stop: 08/10/20 15:14 Last Admin: 08/06/20 17:34 Dose: 200 mls/hr Documented by: Azithromycin 500 mg/ Sodium (Chloride) 250 mls @ 250 mls/hr IV Q24H PENDING SALE TO [facility] Stop: 08/10/20 15:59 Last Admin: 08/07/20 15:26 Dose: 250 mls/hr Documented by: Sodium Chloride (Normal Saline) Confirm Administered Dose 250 mls @ as directed .ROUTE .STK-MED ONE Stop: 08/06/20 16:33 Last Admin: 08/06/20 18:48 Dose: 300 mls/hr Documented by: Sodium Chloride (Normal Saline) 25 mls @ 25 mls/hr IV ASDIRECTED PENDING SALE TO [facility] Sodium Chloride (Normal Saline (Advbag)) Confirm Administered Dose 250 mls @ as directed .ROUTE .STK-MED ONE Stop: 08/07/20 14:12 Last Admin: 08/07/20 15:28 Dose: Not Given Documented by: Potassium Chloride (Klor-Con M20) 40 meq PO ONETIME STA Stop: 08/06/20 15:42 Last Admin: 08/06/20 17:39 Dose: 40 meq Documented by: Potassium Chloride (Klor-Con M20) 40 meq PO ONETIME ONE Stop: 08/06/20 20:01 Last Admin: 08/06/20 20:06 Dose: 40 meq Documented by: Potassium Chloride (Klor-Con M20) 40 meq PO ONETIME ONE Stop: 08/07/20 00:00 Last Admin: 08/06/20 23:58 Dose: 40 meq Documented by: - Exam Quality Assessment: DVT Prophylaxis (Lovenox). No: Supplemental Oxygen General: Alert, Oriented, Cooperative, No Acute Distress HEENT: Pupils Equal, Pupils Reactive, Mucous Membr. Moist/[place] Neck: Supple, Trachea Midline. No: Lymphadenopathy Lungs: Normal Respiratory Effort, Wheezing (Fine expiratory wheezes noted posteriorly) Cardiovascular: Regular Rate, Regular Rhythm, No Murmurs GI/Abdominal Exam: Normal Bowel Sounds, Soft, Non-Tender, No Distention (Female) Exam: Deferred Back Exam: Normal Inspection, Full Range of Motion Extremities: Normal Inspection, Normal Range of Motion, Non-Tender, No Pedal Roly ma, Normal Capillary Refill Peripheral Pulses: 2+: Radial (L), Radial (R), Dorsalis Pedis (L), Dorsalis Pedis (R) Skin: Warm, Dry, Intact Neurological: No New Focal Deficit Psy/Mental Status: Alert, Normal Affect, Normal Mood Sepsis Event Note - Evaluation Sepsis Screening Result: No Definite Risk - Focused Exam Vital Signs: Vital Signs Temp Resp BP Pulse Ox Pulse Ox 08/09/20 13:45 93 L 08/09/20 09:26 93 L 08/09/20 03:00 97.6 F 18 122/92 H 91 L - Problem List & Annotations (1) Asthma SNOMED Code(s): 027636053 Code(s): J45.909 - UNSPECIFIED ASTHMA, UNCOMPLICATED Status: Acute Priority: High Current Visit: Yes Qualifiers: Asthma severity: unspecified severity Asthma persistence: unspecified Asthma complication type: unspecified Qualified Code(s): J45.909 - Unspecified asthma, uncomplicated (2) COVID-19 SNOMED Code(s): 983277054 Code(s): U07.1 - COVID-19 Status: Acute Priority: High Current Visit: Yes (3) Hypoxia SNOMED Code(s): 957009510 Code(s): R09.02 - HYPOXEMIA Status: Acute Priority: High Current Visit: Yes - Problem List Review Problem List Initiated/Reviewed/Updated: Yes - My Orders Last 24 Hours: My Active Orders 08/09/20 06:00 Enoxaparin [Lovenox] 30 mg SUBCUT Q12H 08/10/20 05:11 C-REACTIVE PROTEIN [CHEM] DAILY CBC W/O DIFF,HEMOGRAM [HEME] DAILY COMPREHENSIVE METABOLIC PN,CMP [CHEM] DAILY D-DIMER QUANTITATIVE [COAG] DAILY MAGNESIUM [CHEM] DAILY PHOSPHORUS [CHEM] DAILY 08/11/20 05:11 C-REACTIVE PROTEIN [CHEM] DAILY CBC W/O DIFF,HEMOGRAM [HEME] DAILY COMPREHENSIVE METABOLIC PN,CMP [CHEM] DAILY D-DIMER QUANTITATIVE [COAG] DAILY MAGNESIUM [CHEM] DAILY PHOSPHORUS [CHEM] DAILY - Assessment Assessment:: 08/09/20 The patient is doing very well today. Is currently on room air satting 90 to 93%. Currently on day 4 of remdesivir. Potentially will discharge to home after tomorrow's dose of remdesivir. Continuing on dexamethasone. Will reorder nebulizer and albuterol as patient states hers is old and does not believe it is working anymore. Continue to encourage incentive spirometer and ambulation. To new to monitor her for hypoxia per respiratory therapy. - Plan Plan:: 08/06/20 * 1 week history of general malaise, sore throat, shortness of breath, cough, and diarrhea. * has COVID * Was seen in the ER 3 days ago and tested for COVID * Has been on prednisone from her primary care provider * To saturations dropping into the 80s on room air while in the emergency department * History of asthma * Chest x-ray shows groundglass airspace disease with mid and lower lung pettit bilaterally Lab results: * CBC is unremarkable * Fibrinogen 491 * D-dimer 0.32 * Potassium 3.2 * BUN 10 * Creatinine 1.0 * Magnesium 1.9 * Ferritin 603 * AST 43 * ALT 73 * LDH 282 * C-reactive protein 6.2 Arterial blood gases * pH 7.46 * PCO2 32.7 * PO2 of 60.0 * HCO3 22.7 * On room air. Vital signs: * Temp 98.6 * Pulse 116 * Respiratory rate 33 * Blood pressure 135/69 Plan: * Start Remdesivir * Convalescent plasma * Dexamethasone * Zithromax 500 mg IV daily for 3 days * Rocephin 2 g IV every 24 hours x5 days * Repeat labs in the a.m. * Potassium 40 mEq now p.o. and repeat in 4 hours x 2 doses. * Incentive spirometer every 1 hour while awake * Monitor her for hypoxia * Respiratory care to titrate O2 * Albuterol nebulizers as needed * Repeat chest x-ray as needed * Repeat blood gases as needed * statement services representative consult for discharge planning * Dietary consult for adequate caloric needs [facility] and COVID viral pneumonia. Patient will likely be here greater than 96 hours due to treatment plan and regimen. 08/07/2020 Because of the patient's COVID-19 she will be maintained on the COVID-19 protocol. She was started yesterday on remdesivir and this will be continued. She is also on dexamethasone. We will continue oxygenation to keep her saturations around 90%. Patient has been encouraged to ambulate. She will have her regular diet as tolerated. I have also ordered repeat laboratory studies for the morning. Patient can be considered for discharge once she has completed a course of remdesivir. 08/08/2020 Overall, the patient is doing much better today. I explained to the patient that I want to continue the remdesivir until she has had 5 full doses. The patient is currently not on oxygen. Her vital signs will be monitored and if she desaturates or becomes hypoxic we will replace the oxygen. She has been en couraged to continue ambulation. Also will be kept on a regular diet. The patient will be considered for discharge tomorrow after her last dose of remdesivir. Because the patient has had an elevated D-dimer she will need to be on Xarelto. This will be a course of at least 31 days. I have ordered repeat laboratory testings for the morning. This is to include repeat of the D-dimer. 08/09/20 She is doing much better today. Is slightly anxious about being discharged to home tomorrow, however she is encouraged to use albuterol treatments as needed at home. Vital signs and lab work all remained stable. Repeat repeat labs in the a.m. we will continue Lovenox for DVT prophylaxis. Encourage ambulation in her room. Tentative discharge to home tomorrow after final dose of remdesivir. <Chapito Garcia - Last Filed: 08/09/20 17:23> - Patient Data Vitals - Most Recent: Last Vital Signs Temp 36.6 C 08/09/20 15:10 Pulse 77 08/09/20 15:10 Resp 18 08/09/20 15:10 BP 133/71 08/09/20 15:10 Pulse Ox 95 08/09/20 15:10 I&O - Last 24 Hours: Intake & Output 08/09/20 08/09/20 08/09/20 06:59 14:59 22:59 Intake Total 480 720 Output Total 651 Balance 480 69 Lab Results Last 24 Hours: Laboratory Results - last 24 hr 08/09/20 08/09/20 08/09/20 Range/Units 05:07 05:07 05:07 WBC 8.44 (3.98-10.04) K/mm3 RBC 4.69 (3.98-5.22) M/mm3 Hgb 13.8 (11.2-15.7) gm/dl Hct 43.0 (34.1-44.9) % MCV 91.7 (79.4-94.8) fl MCH 29.4 (25.6-32.2) pg MCHC 32.1 L (32.2-35.5) g/dl RDW Std Deviation 46.4 H (36.4-46.3) fL Plt Count 338 (182-369) K/mm3 MPV 9.7 (9.4-12.3) fl D-Dimer, Quantitative < 0.19 L (0.19-0.50) mg/L Sodium 141 (136-145) mEq/L Potassium 4.3 (3.5-5.1) mEq/L Chloride 104 (98-107) mEq/L Carbon Dioxide 25 (21-32) mEq/L Anion Gap 16.3 H (5-15) BUN 17 (7-18) mg/dL Creatinine 0.8 (0.55-1.02) mg/dL Est Cr Clr Drug Dosing 69.92 mL/min Estimated GFR (MDRD) > 60 (>60) mL/min BUN/Creatinine Ratio 21.3 H (14-18) Glucose 152 H (74-106) mg/dL Calcium 8.4 L (8.5-10.1) mg/dL Phosphorus 4.2 (2.6-4.7) mg/dL Magnesium 2.1 (1.8-2.4) mg/dl Total Bilirubin 0.3 (0.2-1.0) mg/dL AST 17 (15-37) U/L ALT 54 (14-59) U/L Alkaline Phosphatase 46 (46-116) U/L C-Reactive Protein 1.8 H* (<1.0) mg/dL Total Protein 7.0 (6.4-8.2) g/dl Albumin 3.0 L (3.4-5.0) g/dl Globulin 4.0 gm/dL Albumin/Globulin Ratio 0.8 L (1-2) Rafal Results Last 24 Hours: Microbiology 08/06/20 12:48 Aerobic Blood Culture - Preliminary Blood - Venous NO GROWTH AFTER 3 DAYS Anaerobic Blood Culture - Preliminary NO GROWTH AFTER 3 DAYS 08/06/20 12:55 Aerobic Blood Culture - Preliminary Blood - Venous - Lab Draw NO GROWTH AFTER 3 DAYS Anaerobic Blood Culture - Preliminary NO GROWTH AFTER 3 DAYS Med Orders - Current: Current Medications Acetaminophen (Tylenol) 650 mg PO Q4H PRN PRN Reason: Pain (Mild 1-3)/fever Last Admin: 08/08/20 07:56 Dose: 650 mg Documented by: Albuterol (Proventil Neb Soln) 2.5 mg NEB Q2H PRN PRN Reason: Shortness Of Breath/wheezing Last Admin: 08/09/20 13:44 Dose: 2.5 mg Documented by: Dexamethasone (Dexamethasone) 6 mg PO Q24H PENDING SALE TO [facility] Stop: 08/15/20 14:01 Last Admin: 08/09/20 13:28 Dose: 6 mg Documented by: Diltiazem HCl (Cardizem Cd) 360 mg PO DAILY PENDING SALE TO [facility] Last Admin: 08/09/20 10:29 Dose: 360 mg Documented by: Enoxaparin Sodium (Lovenox) 30 mg SUBCUT Q12H PENDING SALE TO [facility] Last Admin: 08/09/20 17:15 Dose: 30 mg Documented by: Remdesivir 100 mg/ Sodium (Chloride) 100 mls @ 100 mls/hr IV Q24H PENDING SALE TO [facility] Stop: 08/10/20 14:59 Last Admin: 08/09/20 13:52 Dose: 100 mls/hr Documented by: Montelukast Sodium (Singulair) 10 mg PO DAILY PENDING SALE TO [facility] Last Admin: 08/09/20 08:00 Dose: 10 mg Documented by: Ondansetron HCl (Zofran) 4 mg IV Q6H PRN PRN Reason: Nausea/Vomiting Sodium Chloride (Saline Flush) 10 ml FLUSH ASDIRECTED PRN PRN Reason: Keep Vein Open Last Admin: 08/06/20 14:18 Dose: 10 ml Documented by: Tramadol HCl (Ultram) 50 mg PO Q6H PRN PRN Reason: Pain (mild 1-3) Last Admin: 08/08/20 14:03 Dose: 50 mg Documented by: Discontinued Medications Azithromycin (Zithromax) 500 mg IV Q24H PENDING SALE TO [facility] Stop: 08/09/20 14:31 Last Admin: 08/07/20 06:31 Dose: Not Given Documented by: Dexamethasone (Dexamethasone) 6 mg IVPUSH ONETIME ONE Stop: 08/06/20 12:29 Last Admin: 08/06/20 14:18 Dose: 6 mg Documented by: Diltiazem HCl (Cardizem Cd) 360 mg PO DAILY@1400 [facility] Last Admin: 08/08/20 14:04 Dose: 360 mg Documented by: Enoxaparin Sodium (Lovenox) 30 mg SUBCUT Q12H PENDING SALE TO [facility] Last Admin: 08/08/20 14:02 Dose: 30 mg Documented by: Remdesivir 200 mg/ Sodium (Chloride) 250 mls @ 250 mls/hr IV ONETIME ONE Stop: 08/06/20 13:59 Last Admin: 08/06/20 15:29 Dose: 250 mls/hr Documented by: Ceftriaxone Sodium 2 gm/ (Sodium Chloride) 100 mls @ 200 mls/hr IV Q24H BRUNILDA Stop: 08/10/20 15:14 Last Admin: 08/06/20 17:34 Dose: 200 mls/hr Documented by: Azithromycin 500 mg/ Sodium (Chloride) 250 mls @ 250 mls/hr IV Q24H [facility] Stop: 08/10/20 15:59 Last Admin: 08/07/20 15:26 Dose: 250 mls/hr Documented by: Sodium Chloride (Normal Saline) Confirm Administered Dose 250 mls @ as directed .ROUTE .STK-MED ONE Stop: 08/06/20 16:33 Last Admin: 08/06/20 18:48 Dose: 300 mls/hr Documented by: Sodium Chloride (Normal Saline) 25 mls @ 25 mls/hr IV ASDIRECTED PENDING SALE TO [facility] Sodium Chloride (Normal Saline (Advbag)) Confirm Administered Dose 250 mls @ as directed .ROUTE .STK-MED ONE Stop: 08/07/20 14:12 Last Admin: 08/07/20 15:28 Dose: Not Given Documented by: Potassium Chloride (Klor-Con M20) 40 meq PO ONETIME STA Stop: 08/06/20 15:42 Last Admin: 08/06/20 17:39 Dose: 40 meq Documented by: Potassium Chloride (Klor-Con M20) 40 meq PO ONETIME ONE Stop: 08/06/20 20:01 Last Admin: 08/06/20 20:06 Dose: 40 meq Documented by: Potassium Chloride (Klor-Con M20) 40 meq PO ONETIME ONE Stop: 08/07/20 00:00 Last Admin: 08/06/20 23:58 Dose: 40 meq Documented by: Sepsis Event Note - Focused Exam Vital Signs: Vital Signs Temp Pulse Resp BP Pulse Ox Pulse Ox 08/09/20 15:10 36.6 C 77 18 133/71 95 08/09/20 14:00 95 08/09/20 13:45 93 L 08/09/20 10:29 87 121/66 94 L 08/09/20 09:26 93 L 08/09/20 08:49 24 H 08/09/20 08:30 86 20 93 L 08/09/20 08:02 72 17 128/76 92 L 08/09/20 08:01 86 27 H 94 L 08/09/20 08:00 79 19 91 L 08/09/20 07:30 77 16 94 L 08/09/20 07:00 17 08/09/20 06:30 65 17 92 L 08/09/20 06:00 71 18 91 L 08/09/20 05:30 76 21 H 92 L - Problem List & Annotations (1) COVID-19 SNOMED Code(s): 757748594 Code(s): U07.1 - COVID-19 Status: Acute Priority: High Current Visit: Yes (2) Hypoxia SNOMED Code(s): 256647747 Code(s): R09.02 - HYPOXEMIA Status: Acute Priority: High Current Visit: Yes - My Orders Last 24 Hours: My Active Orders 08/09/20 09:00 Diltiazem [Cardizem CD] 360 mg PO DAILY - Assessment Assessment:: I have seen and examined the patient independent of nurse practitioner Francia Chicas and I have discussed the case with her. I have reviewed and agree with the assessment and plan as outlined for this patient by her. Please see orders.
[2020-08-10] MEDS: Diltiazem 180 MG Cap.CD PO SCH (08:37)
[2020-08-10] MEDS: Montelukast 10 MG Tab PO SCH (08:37)
[2020-08-10] MEDS ORDERED: Enoxaparin 30 MG/0.3 ML Syringe SUBCUT SCH (09:00)
[2020-08-10] MEDS: Albuterol 0.083% 2.5 MG/3 ML Neb Soln NEB PRN (09:51)
[2020-08-10 12:14] VITALS: BP 127/59; PULSE 84
--- NOTE | 2020-08-10 13:10 | PCM.DCSUM1 ---
<Juan FranciscoFrancia M - Last Filed: 08/10/20 13:10> Discharge Summary - Hospital Course HPI Initial Comments: Patient is a 54-year-old female who presents to the ED for evaluation of her COVID-like symptoms. Patient notes her was diagnosed with COVID, and is currently hospitalized for this. Patient notes she has been having symptoms since last week . She was seen in this ER on Sunday, tested for COVID- 19, but has not received results. Review of that visit does demonstrate lab values that are suspicious for positive diagnosis of COVID-19 at this time. Patient states that she does have a history of asthma, she was feeling very short of breath at home. She states she woke up this morning, did some light activity around the house and noted that her oxygen sats were in the 70s. She states she saw as high as 82%, and then decided to come to the ER for management. She has oxygen sats of 93 to 94% while being in the ER, and she is not visibly dyspneic. Her respiratory rate is 33 breaths/min, pulse rate is 116, temperature is 98.6 F. Patient states she is coughing quite a bit, and the Tessalon Perles seem to help a little bit. She states she was using her asthma inhaler as well, and is currently on prednisone from her primary care provider. She states that she did get some relief with asthma inhaler, and has been using this off and on. Her primary care provider is Paris Umana. Patient states she is not thought she has had any fever at home, but she does feel chilled. She has a cough, shortness of breath, but no nausea/vomiting/diarrhea. Diagnosis: Stroke: No - Discharge Data Discharge Date: 08/10/20 (Admit date: 08/06/20) Discharge Disposition: Home, Self-Care 01 Condition: Good - Referral to Home Health Primary Care Physician: Paris Umana, S[employer] - Discharge Diagnosis/Problem(s) (1) Asthma SNOMED Code(s): 992245499 ICD Code: J45.909 - UNSPECIFIED ASTHMA, UNCOMPLICATED Status: Acute Priority: High Current Visit: Yes Qualifiers: Asthma severity: unspecified severity Asthma persistence: unspecified Asthma complication type: unspecified Qualified Code(s): J45.909 - Unspecified asthma, uncomplicated (2) COVID-19 SNOMED Code(s): 471085834 ICD Code: U07.1 - COVID-19 Status: Acute Priority: High Current Visit: Yes (3) Hypoxia SNOMED Code(s): 892060631 ICD Code: R09.02 - HYPOXEMIA Status: Acute Priority: High Current V isit: Yes - Patient Summary/Data Consults: Consultations 08/06/20 14:05 Consult to Case Management/Art Tracer [CONS] Routine Consult to Card Mounter [CONS] Routine Consult to Spiritual Care [CONS] Routine OT Evaluation and Treatment [CONS] Routine PT Evaluation and Treatment [CONS] Routine Respiratory Care Assess and Treatment [CONS] Routine Hospital Course: 08/09/20 The patient is doing very well today. Is currently on room air satting 90 to 93%. Currently on day 4 of remdesivir. Potentially will discharge to home after tomorrow's dose of remdesivir. Continuing on dexamethasone. Will reorder nebulizer and albuterol as patient states hers is old and does not believe it is working anymore. Continue to encourage incentive spirometer and ambulation. To new to monitor her for hypoxia per respiratory therapy. - Plan Plan:: 08/06/20 * 1 week history of general malaise, sore throat, shortness of breath, cough, and diarrhea. * has COVID * Was seen in the ER 3 days ago and tested for COVID * Has been on prednisone from her primary care provider * To saturations dropping into the 80s on room air while in the emergency department * History of asthma * Chest x-ray shows groundglass airspace disease with mid and lower lung pettit bilaterally Lab results: * CBC is unremarkable * Fibrinogen 491 * D-dimer 0.32 * Potassium 3.2 * BUN 10 * Creatinine 1.0 * Magnesium 1.9 * Ferritin 603 * AST 43 * ALT 73 * LDH 282 * C-reactive protein 6.2 Arterial blood gases * pH 7.46 * PCO2 32.7 * PO2 of 60.0 * HCO3 22.7 * On room air. Vital signs: * Temp 98.6 * Pulse 116 * Respiratory rate 33 * Blood pressure 135/69 Plan: * Start Remdesivir * Convalescent plasma * Dexamethasone * Zithromax 500 mg IV daily for 3 days * Rocephin 2 g IV every 24 hours x5 days * Repeat labs in the a.m. * Potassium 40 mEq now p.o. and repeat in 4 hours x 2 doses. * Incentive spirometer every 1 hour while awake * Monitor her for hypoxia * Respiratory care to titrate O2 * Albuterol nebulizers as needed * Repeat chest x-ray as needed * Repeat blood gases as needed * consumer services advisor consult for discharge planning * Dietary consult for adequate caloric needs The patient will be admitted to the [facility] floor for treatment of COVID and COVID viral pneumonia. Patient will likely be here greater than 96 hours due to treatment plan and regimen. 08/07/2020 Because of the patient's COVID-19 she will be maintained on the COVID-19 protocol. She was started yesterday on remdesivir and this will be continued. She is also on dexamethasone. We will continue oxygenation to keep her saturations around 90%. Patient has been encouraged to ambulate. She will have her regular diet as tolerated. I have also ordered repeat laboratory studies for the morning. Patient can be considered for discharge once she has completed a course of remdesivir. 08/08/2020 Overall, the patient is doing much better today. I explained to the patient that I want to continue the remdesivir until she has had 5 full doses. The patient is currently not on oxygen. Her vital signs will be monitored and if she desaturates or becomes hypoxic we will replace the oxygen. She has been encouraged to continue ambulation. Also will be kept on a regular diet. The patient will be considered for discharge tomorrow after her last dose of remdesivir. Because the patient has had an elevated D-dimer she will need to be on Xarelto. This will be a course of at least 31 days. I have ordered repeat laboratory testings for the morning. This is to include repeat of the D-dimer. 08/09/20 She is doing much better today. Is slightly anxious about being discharged to home tomorrow, however she is encouraged to use albuterol treatments as needed at home. Vital signs and lab work all remained stable. Repeat repeat labs in the a.m. we will continue Lovenox for DVT prophylaxis. Encourage ambulation in her room. Tentative discharge to home tomorrow after final dose of remdesivir. 08/10/20 Patient is doing well today. She remains on room air. She still has some expiratory wheezes noted posteriorly bilaterally. Vital signs remained stable and lab work is unremarkable. Patient will be discharged to home after final dose of remdesivir. She has been instructed to use her albuterol nebulizers every 4 hours while awake for the next 48 hours. She can then use her albuterol every 4 hours as needed. She will also continue on the dexamethasone for another 5 days of treatment, for a total of 10 days. Patient has been instructed to use incentive spirometer for approximately the next month or so. She is to follow-up with Paris Umana in 1 week. Follow-up on elevated blood sugars as the dexamethasone has had an effect on this. - Patient Instructions Diet: Regular Diet as Tolerated Activity: As Tolerated Other/Special Instructions: Discharge to home. Follow-up with Paris Umana as scheduled on August 16. Please mention follow-up on elevated blood sugars. Continue to use incentive spirometer while awake. Use nebs every 4 hours while awake for the next 48 hours then use nebs as needed. - Discharge Plan *PRESCRIPTION DRUG MONITORING PROGRAM REVIEWED*: No *COPY OF PRESCRIPTION DRUG MONITORING REPORT IN PATIENT DE: No Prescriptions/Med Rec: dexAMETHasone [Dexamethasone] 6 mg PO Q24H #5 tablet Albuterol [Proventil Neb Soln] 2.5 mg NEB Q4HR PRN #30 ampule PRN Reason: Shortness Of Breath/wheezing Home Medications: Home Meds Albuterol/Ipratropium [Combivent Respimat] 1 puff INH Q4H PRN 03/10/16 [History] Fluticasone/Salmeterol [Advair Diskus 500-50] 1 puff INH BID 03/10/16 [History] Montelukast [Singulair] 10 mg PO DAILY 03/10/16 [History] traZODone 50 - 100 mg PO BEDTIME PRN 03/10/16 [History] dilTIAZem HCL [Cardizem Cd] 360 mg PO DAILY 07/25/17 [History] traMADol [Ultram] 1 tab PO Q6H PRN 08/06/20 [History] Albuterol [Proventil Neb Soln] 2.5 mg NEB Q4HR PRN #30 ampule 08/10/20 [Rx] dexAMETHasone [Dexamethasone] 6 mg PO Q24H #5 tablet 08/10/20 [Rx] Oxygen Therapy Mode: Room Air Patient Handouts: COVID-19 Frequently Asked Questions, COVID-19, Prevent the Spread of COVID-19 if You Are Sick - CDC, Sepsis, Self Care, Adult Forms: ED Department Discharge Referrals: Paris Umana NP [Primary Care Provider] - 08/16/20 1:30 pm - Discharge Summary/Plan Comment DC Time >30 min.: No - General Info Date of Service: 08/10/20 Admission Dx/Problem (Free Text: Admission Diagnosis/Problem Admission Diagnosis/Problem Hypoxia Subjective Update: Doing very well. Ready for discharge to home. Functional Status: Reports: Pain Controlled, Tolerating Diet, Ambulating, Urinating, Incentive Spirometry - Review of Systems General: Reports: No Symptoms HEENT: Reports: No Symptoms Pulmonary: Reports: Cough, Wheezing Cardiovascular: Reports: No Symptoms Gastrointestinal: Reports: No Symptoms Genitourinary: Reports: No Symptoms Musculoskeletal: Reports: No Symptoms Skin: Reports: No Symptoms Neurological: Reports: No Symptoms Psychiatric: Reports: No Symptoms - Patient Data Vitals - Most Recent: Last Vital Signs Temp 98.2 F 08/10/20 11:59 Pulse 84 08/10/20 11:59 Resp 16 08/10/20 11:59 BP 127/59 L 08/10/20 11:59 Pulse Ox 96 08/10/20 11:59 Weight - Most Recent: 101.741 kg I&O - Last 24 hours: Intake & Output 08/09/20 08/10/20 08/10/20 22:59 06:59 14:59 Intake Total 900 1600 320 Output Total 651 2400 Balance 249 -800 320 Lab Results - Last 24 hrs: Laboratory Results - last 24 hr 08/10/20 08/10/20 08/10/20 Range/Units 05:22 05:22 05:22 WBC 8.80 (3.98-10.04) K/mm3 RBC 4.50 (3.98-5.22) M/mm3 Hgb 13.1 (11.2-15.7) gm/dl Hct 40.9 (34.1-44.9) % MCV 90.9 (79.4-94.8) fl MCH 29.1 (25.6-32.2) pg MCHC 32.0 L (32.2-35.5) g/dl RDW Std Deviation 45.4 (36.4-46.3) fL Plt Count 357 (182-369) K/mm3 MPV 9.5 (9.4-12.3) fl D-Dimer, Quantitative < 0.19 L (0.19-0.50) mg/L Sodium 139 (136-145) mEq/L Potassium 3.9 (3.5-5.1) mEq/L Chloride 104 (98-107) mEq/L Carbon Dioxide 22 (21-32) mEq/L Anion Gap 16.9 H (5-15) BUN 17 (7-18) mg/dL Creatinine 0.8 (0.55-1.02) mg/dL Est Cr Clr Drug Dosing 69.42 mL/min Estimated GFR (MDRD) > 60 (>60) mL/min BUN/Creatinine Ratio 21.3 H (14-18) Glucose 166 H (74-106) mg/dL Calcium 8.3 L (8.5-10.1) mg/dL Phosphorus 3.3 (2.6-4.7) mg/dL Magnesium 2.0 (1.8-2.4) mg/dl Total Bilirubin 0.3 (0.2-1.0) mg/dL AST 22 (15-37) U/L ALT 63 H (14-59) U/L Alkaline Phosphatase 47 (46-116) U/L C-Reactive Protein 0.7 (<1.0) mg/dL Total Protein 6.6 (6.4-8.2) g/dl Albumin 2.9 L (3.4-5.0) g/dl Globulin 3.7 gm/dL Albumin/Globulin Ratio 0.8 L (1-2) ZIA Results - Last 24 hrs: Microbiology 08/06/20 12:48 Aerobic Blood Culture - Preliminary Blood - Venous NO GROWTH AFTER 3 DAYS Anaerobic Blood Culture - Preliminary NO GROWTH AFTER 3 DAYS 08/06/20 12:55 Aerobic Blood Culture - Preliminary Blood - Venous - Lab Draw NO GROWTH AFTER 3 DAYS Anaerobic Blood Culture - Preliminary NO GROWTH AFTER 3 DAYS Med Orders - Current: Current Medications Acetaminophen (Tylenol) 650 mg PO Q4H PRN PRN Reason: Pain (Mild 1-3)/fever Last Admin: 08/08/20 07:56 Dose: 650 mg Documented by: Albuterol (Proventil Neb Soln) 2.5 mg NEB Q2H PRN PRN Reason: Shortness Of Breath/wheezing Last Admin: 08/10/20 09:51 Dose: 2.5 mg Documented by: Dexamethasone (Dexamethasone) 6 mg PO Q24H [facility] Stop: 08/15/20 14:01 Last Admin: 08/09/20 13:28 Dose: 6 mg Documented by: Diltiazem HCl (Cardizem Cd) 360 mg PO DAILY [facility] Last Admin: 08/10/20 08:37 Dose: 360 mg Documented by: Enoxaparin Sodium (Lovenox) 30 mg SUBCUT Q12H [facility] Last Admin: 08/10/20 08:37 Dose: 30 mg Documented by: Remdesivir 100 mg/ Sodium (Chloride) 100 mls @ 100 mls/hr IV Q24H [facility] Stop: 08/10/20 14:59 Last Admin: 08/09/20 13:52 Dose: 100 mls/hr Documented by: Montelukast Sodium (Singulair) 10 mg PO DAILY [facility] Last Admin: 08/10/20 08:37 Dose: 10 mg Documented by: Ondansetron HCl (Zofran) 4 mg IV Q6H PRN PRN Reason: Nausea/Vomiting Sodium Chloride (Saline Flush) 10 ml FLUSH ASDIRECTED PRN PRN Reason: Keep Vein Open Last Admin: 08/06/20 14:18 Dose: 10 ml Documented by: Tramadol HCl (Ultram) 50 mg PO Q6H PRN PRN Reason: Pain (mild 1-3) Last Admin: 08/08/20 14:03 Dose: 50 mg Documented by: Discontinued Medications Azithromycin (Zithromax) 500 mg IV Q24H [facility] Stop: 08/09/20 14:31 Last Admin: 08/07/20 06:31 Dose: Not Given Documented by: Dexamethasone (Dexamethasone) 6 mg IVPUSH ONETIME ONE Stop: 08/06/20 12:29 Last Admin: 08/06/20 14:18 Dose: 6 mg Documented by: Diltiazem HCl (Cardizem Cd) 360 mg PO DAILY@1400 [facility] Last Admin: 08/08/20 14:04 Dose: 360 mg Documented by: Enoxaparin Sodium (Lovenox) 30 mg SUBCUT Q12H [facility] Last Admin: 08/08/20 14:02 Dose: 30 mg Documented by: Enoxaparin Sodium (Lovenox) 30 mg SUBCUT Q12H [facility] Last Admin: 08/09/20 17:15 Dose: 30 mg Documented by: Remdesivir 200 mg/ Sodium (Chloride) 250 mls @ 250 mls/hr IV ONETIME ONE Stop: 08/06/20 13:59 Last Admin: 08/06/20 15:29 Dose: 250 mls/hr Documented by: Ceftriaxone Sodium 2 gm/ (Sodium Chloride) 100 mls @ 200 mls/hr IV Q24H [facility] Stop: 08/10/20 15:14 Last Admin: 08/06/20 17:34 Dose: 200 mls/hr Documented by: Azithromycin 500 mg/ Sodium (Chloride) 250 mls @ 250 mls/hr IV Q24H [facility] Stop: 08/10/20 15:59 Last Admin: 08/07/20 15:26 Dose: 250 mls/hr Documented by: Sodium Chloride (Normal Saline) Confirm Administered Dose 250 mls @ as directed .ROUTE .STK-MED ONE Stop: 08/06/20 16:33 Last Admin: 08/06/20 18:48 Dose: 300 mls/hr Documented by: Sodium Chloride (Normal Saline) 25 mls @ 25 mls/hr IV ASDIRECTED [facility] Sodium Chloride (Normal Saline (Advbag)) Confirm Administered Dose 250 mls @ as directed .ROUTE .STK-MED ONE Stop: 08/07/20 14:12 Last Admin: 08/07/20 15:28 Dose: Not Given Documented by: Potassium Chloride (Klor-Con M20) 40 meq PO ONETIME STA Stop: 08/06/20 15:42 Last Admin: 08/06/20 17:39 Dose: 40 meq Documented by: Potassium Chloride (Klor-Con M20) 40 meq PO ONETIME ONE Stop: 08/06/20 20:01 Last Admin: 08/06/20 20:06 Dose: 40 meq Documented by: Potassium Chloride (Klor-Con M20) 40 meq PO ONETIME ONE Stop: 08/07/20 00:00 Last Admin: 08/06/20 23:58 Dose: 40 meq Documented by: - Exam Quality Assessment: Denies: Supplemental Oxygen General: Reports: Alert, Oriented, Cooperative HEENT: Reports: Pupils Equal, Pupils Reactive, Mucous Membr. Moist/[place] Neck: Reports: Supple, Trachea Midline. Denies: Lymphadenopathy Lungs: Reports: Normal Respiratory Effort, Wheezing (Expiratory wheezes noted bilaterally posteriorly) Cardiovascular: Reports: Regular Rate, Regular Rhythm, No Murmurs GI/Abdominal Exam: Normal Bowel Sounds, Soft, Non-Tender, No Distention (Female) Exam: Deferred Rectal (Female) Exam: Deferred Back Exam: Reports: Normal Inspection, Full Range of Motion Extremities: Normal Inspection, Normal Range of Motion, Non-Tender, No Pedal Edema, Normal Capillary Refill Skin: Reports: Warm, Dry, Intact Neurological: Reports: No New Focal Deficit Psy/Mental Status: Reports: Alert, Normal Affect, Normal Mood <Chapito Garcia - Last Filed: 08/10/20 15:21> Discharge Summary - Referral to Home Health Primary Care Physician: Paris Umana NP - Discharge Diagnosis/Problem(s) (1) COVID-19 SNOMED Code(s): 976455987 ICD Code: U07.1 - COVID-19 Status: Acute Priority: High Current Visit: Yes (2) Hypoxia SNOMED Code(s): 083837570 ICD Code: R09.02 - HYPOXEMIA Status: Acute Priority: High Current Visit: Yes - Patient Summary/Data Consults: Consultations 08/06/20 14:05 Consult to Case Management/Art Tracer [CONS] Routine Consult to Card Mounter [CONS] Routine Consult to Spiritual Care [CONS] Routine OT Evaluation and Treatment [CONS] Routine PT Evaluation and Treatment [CONS] Routine Respiratory Care Assess and Treatment [CONS] Routine Hospital Course: I have seen and examined the patient independent of nurse practitioner Francia Chicas and I have discussed the case with her. I have reviewed and agree with the assessment and plan as outlined for this patient by her. Please see orders. - Patient Data Vitals - Most Recent: Last Vital Signs Temp 36.8 C 08/10/20 11:59 Pulse 84 08/10/20 11:59 Resp 16 08/10/20 11:59 BP 127/59 L 08/10/20 11:59 Pulse Ox 96 08/10/20 11:59 I&O - Last 24 hours: Intake & Output 08/10/20 08/10/20 08/10/20 06:59 14:59 22:59 Intake Total 1600 320 Output Total 2400 Balance -800 320 Lab Results - Last 24 hrs: Laboratory Results - last 24 hr 08/10/20 08/10/20 08/10/20 Range/Units 05:22 05:22 05:22 WBC 8.80 (3.98-10.04) K/mm3 RBC 4.50 (3.98-5.22) M/mm3 Hgb 13.1 (11.2-15.7) gm/dl Hct 40.9 (34.1-44.9) % MCV 90.9 (79.4-94.8) fl MCH 29.1 (25.6-32.2) pg MCHC 32.0 L (32.2-35.5) g/dl RDW Std Deviation 45.4 (36.4-46.3) fL Plt Count 357 (182-369) K/mm3 MPV 9.5 (9.4-12.3) fl D-Dimer, Quantitative < 0.19 L (0.19-0.50) mg/L Sodium 139 (136-145) mEq/L Potassium 3.9 (3.5-5.1) mEq/L Chloride 104 (98-107) mEq/L Carbon Dioxide 22 (21-32) mEq/L Anion Gap 16.9 H (5-15) BUN 17 (7-18) mg/dL Creatinine 0.8 (0.55-1.02) mg/dL Est Cr Clr Drug Dosing 69.42 mL/min Estimated GFR (MDRD) > 60 (>60) mL/min BUN/Creatinine Ratio 21.3 H (14-18) Glucose 166 H (74-106) mg/dL Calcium 8.3 L (8.5-10.1) mg/dL Phosphorus 3.3 (2.6-4.7) mg/dL Magnesium 2.0 (1.8-2.4) mg/dl Total Bilirubin 0.3 (0.2-1.0) mg/dL AST 22 (15-37) U/L ALT 63 H (14-59) U/L Alkaline Phosphatase 47 (46-116) U/L C-Reactive Protein 0.7 (<1.0) mg/dL Total Protein 6.6 (6.4-8.2) g/dl Albumin 2.9 L (3.4-5.0) g/dl Globulin 3.7 gm/dL Albumin/Globulin Ratio 0.8 L (1-2) ZIA Results - Last 24 hrs: Microbiology 08/06/20 12:48 Aerobic Blood Culture - Preliminary Blood - Venous NO GROWTH AFTER 4 DAYS Anaerobic Blood Culture - Preliminary NO GROWTH AFTER 4 DAYS 08/06/20 12:55 Aerobic Blood Culture - Preliminary Blood - Venous - Lab Draw NO GROWTH AFTER 4 DAYS Anaerobic Blood Culture - Preliminary NO GROWTH AFTER 4 DAYS Med Orders - Current: Current Medications Acetaminophen (Tylenol) 650 mg PO Q4H PRN PRN Reason: Pain (Mild 1-3)/fever Last Admin: 08/08/20 07:56 Dose: 650 mg Documented by: Albuterol (Proventil Neb Soln) 2.5 mg NEB Q2H PRN PRN Reason: Shortness Of Breath/wheezing Last Admin: 08/10/20 09:51 Dose: 2.5 mg Documented by: Dexamethasone (Dexamethasone) 6 mg PO Q24H [facility] Stop: 08/15/20 14:01 Last Admin: 08/10/20 13:44 Dose: 6 mg Documented by: Diltiazem HCl (Cardizem Cd) 360 mg PO DAILY [facility] Last Admin: 08/10/20 08:37 Dose: 360 mg Documented by: Enoxaparin Sodium (Lovenox) 30 mg SUBCUT Q12H [facility] Last Admin: 08/10/20 08:37 Dose: 30 mg Documented by: Montelukast Sodium (Singulair) 10 mg PO DAILY [facility] Last Admin: 08/10/20 08:37 Dose: 10 mg Documented by: Ondansetron HCl (Zofran) 4 mg IV Q6H PRN PRN Reason: Nausea/Vomiting Sodium Chloride (Saline Flush) 10 ml FLUSH ASDIRECTED PRN PRN Reason: Keep Vein Open Last Admin: 08/06/20 14:18 Dose: 10 ml Documented by: Tramadol HCl (Ultram) 50 mg PO Q6H PRN PRN Reason: Pain (mild 1-3) Last Admin: 08/08/20 14:03 Dose: 50 mg Documented by: Discontinued Medications Azithromycin (Zithromax) 500 mg IV Q24H [facility] Stop: 08/09/20 14:31 Last Admin: 08/07/20 06:31 Dose: Not Given Documented by: Dexamethasone (Dexamethasone) 6 mg IVPUSH ONETIME ONE Stop: 08/06/20 12:29 Last Admin: 08/06/20 14:18 Dose: 6 mg Documented by: Diltiazem HCl (Cardizem Cd) 360 mg PO DAILY@1400 [facility] Last Admin: 08/08/20 14:04 Dose: 360 mg Documented by: Enoxaparin Sodium (Lovenox) 30 mg SUBCUT Q12H [facility] Last Admin: 08/08/20 14:02 Dose: 30 mg Documented by: Enoxaparin Sodium (Lovenox) 30 mg SUBCUT Q12H [facility] Last Admin: 08/09/20 17:15 Dose: 30 mg Documented by: Remdesivir 200 mg/ Sodium (Chloride) 250 mls @ 250 mls/hr IV ONETIME ONE Stop: 08/06/20 13:59 Last Admin: 08/06/20 15:29 Dose: 250 mls/hr Documented by: Remdesivir 100 mg/ Sodium (Chloride) 100 mls @ 100 mls/hr IV Q24H [facility] Stop: 08/10/20 14:59 Last Admin: 08/10/20 13:42 Dose: 100 mls/hr Documented by: Ceftriaxone Sodium 2 gm/ (Sodium Chloride) 100 mls @ 200 mls/hr IV Q24H [facility] Stop: 08/10/20 15:14 Last Admin: 08/06/20 17:34 Dose: 200 mls/hr Documented by: Azithromycin 500 mg/ Sodium (Chloride) 250 mls @ 250 mls/hr IV Q24H [facility] Stop: 08/10/20 15:59 Last Admin: 08/07/20 15:26 Dose: 250 mls/hr Documented by: Sodium Chloride (Normal Saline) Confirm Administered Dose 250 mls @ as directed .ROUTE .STK-MED ONE Stop: 08/06/20 16:33 Last Admin: 08/06/20 18:48 Dose: 300 mls/hr Documented by: Sodium Chloride (Normal Saline) 25 mls @ 25 mls/hr IV ASDIRECTED [facility] Sodium Chloride (Normal Saline (Advbag)) Confirm Administered Dose 250 mls @ as directed .ROUTE .STK-MED ONE Stop: 08/07/20 14:12 Last Admin: 08/07/20 15:28 Dose: Not Given Documented by: Potassium Chloride (Klor-Con M20) 40 meq PO ONETIME STA Stop: 08/06/20 15:42 Last Admin: 08/06/20 17:39 Dose: 40 meq Documented by: Potassium Chloride (Klor-Con M20) 40 meq PO ONETIME ONE Stop: 08/06/20 20:01 Last Admin: 08/06/20 20:06 Dose: 40 meq Documented by: Potassium Chloride (Klor-Con M20) 40 meq PO ONETIME ONE Stop: 08/07/20 00:00 Last Admin: 08/06/20 23:58 Dose: 40 meq Documented by:
[2020-08-10] MEDS: REMDESIVIR (EUA) 100 MG in Sodium Chloride 0.9% 100 ML IV SCH (13:42)
[2020-08-10] MEDS: Dexamethasone 4 MG Tab PO SCH (13:44)
--- NOTE | 2020-08-25 14:22 | CR ---
PROCEDURE INFORMATION: Exam: XR Chest, 1 View Exam date and time: 08/06/2020 11:30 AM Age: 54 years old Clinical indication: Shortness of breath; Patient HX: Suspect covid, SOB TECHNIQUE: Imaging protocol: XR of the chest Views: 1 view. COMPARISON: CR Chest 1V Frontal 08/03/2020 9:44 PM FINDINGS: Lungs: Ground-glass airspace disease within the mid and lower lung pettit bilaterally. Pleural space: Unremarkable. No pleural effusion. No pneumothorax. Heart/Mediastinum: Unremarkable. No cardiomegaly. Bones/joints: Status post lower cervical fusion. IMPRESSION: Ground-glass airspace disease within the mid and lower lung pettit bilaterally. Followup radiographs recommended after appropriate therapy. Thank you for allowing us to participate in the care of your patient. Dictated and Authenticated by: Robel Tam MD 08/24/2020 6:10 AM Central Time ([place] & [place]) [place]
== END 2020-08-10 15:35 | disposition home or self-care (01) | DRG 179 ==
LOC: SUPCPDRO 10:42 → JD.ED 10:42 → JD.ICU 14:05 → UNDOADMIN 14:05 → JD.ICU 17:18 → JD.MS 08-09 07:54 → UNDODISIN 08-10 15:35
PROVIDERS: ADMIT Family Medicine; ATTEND Family Medicine
PROC: XW033E5 Introduction of Remdesivir Anti-infective into Peripheral Vein, Percutaneous Approach, New Technology Group 5 (ICD-10-PCS; principal; 2020-08-06)
PROC: XW13325 Transfusion of Convalescent Plasma (Nonautologous) into Peripheral Vein, Percutaneous Approach, New Technology Group 5 (ICD-10-PCS; principal; 2020-08-06)
PROC: 8E0ZXY6 Isolation (ICD-10-PCS; principal; 2020-08-06)
DX: U07.1 COVID-19 (principal); J45.909 Unspecified asthma, uncomplicated; R09.02 Hypoxemia; G89.29 Other chronic pain; M54.9 Dorsalgia, unspecified; M79.7 Fibromyalgia; M54.2 Cervicalgia; F41.9 Anxiety disorder, unspecified; F32.9 Major depressive disorder, single episode, unspecified; G47.00 Insomnia, unspecified; E66.9 Obesity, unspecified; Z88.8 Allergy status to other drugs, medicaments and biological substances; L57.0 Actinic keratosis; Z96.653 Presence of artificial knee joint, bilateral; Z90.49 Acquired absence of other specified parts of digestive tract; Z90.710 Acquired absence of both cervix and uterus; Z98.51 Tubal ligation status; Z79.899 Other long term (current) drug therapy; Z79.52 Long term (current) use of systemic steroids; Z88.6 Allergy status to analgesic agent; Z88.5 Allergy status to narcotic agent; Z88.1 Allergy status to other antibiotic agents; Z91.02 Food additives allergy status; Z86.010 Personal history of colon polyps; Z98.890 Other specified postprocedural states; Z87.891 Personal history of nicotine dependence; Z68.38 Body mass index [BMI] 38.0-38.9, adult
CPT/HCPCS: 36415; 36430; 36600; 71045; 71045-26; 80053; 82728; 82803; 83615; 83735; 84100; 84145; 85025; 85027; 85379; 85384; 86140; 86900; 86901; 87040; 94640; 94760; 94761; 97116-GP; 97162-GP; 97165-GO; 97535-GO; 99222; 99232; 99238; 99285; 99285-25; A9270-GY; J0456; J0696; J1100; J1650; J7050; J8540; P9017

== ENCOUNTER 2021-06-07 18:50 | Emergency (ER) | payer MEDICARE, OTHER ==
[2021-06-07 19:13] VITALS: BP 154/91; PULSE 97
--- NOTE | 2021-06-07 19:28 | EDM.PDOC ---
ED HPI GENERAL MEDICAL PROBLEM - General Chief Complaint: Lower Extremity Injury/Pain Stated Complaint: LEFT CALF PAIN Time Seen by Provider: 06/07/21 19:06 Source of Information: Reports: Patient History Limitations: Reports: No Limitations - History of Present Illness INITIAL COMMENTS - FREE TEXT/NARRATIVE: Ms. Pepe is a very pleasant 55-year-old woman who now presents to the ED stating that her distal anterior left leg was struck by an item about 2 weeks ago, causing a bruise. She then developed posterior proximal left calf pain yesterday evening, 06/06/2021. She is using a walker to ambulate. No prior similar symptoms. Here in the ED, the patient's initial BP is found to be modestly elevated at 154/91, otherwise, she is hemodynamically stable, afebrile, saturating 93% on room air. Other than the left leg issue, the patient denies having a recent fever, chills, sore throat, ear pain, nasal or sinus congestion, cough, dyspnea, chest pain, palpitations, nausea, vomiting, constipation, diarrhea, abdominal pain, urinary symptoms, recent weight gain or weight loss, recent bloody bowel movements or black bowel movements, recent joint aches, headaches, or rashes. The patient's PCP is Paris Umana NP. Her Spinal Surgeon is Dr. Andrzej Westbrook. Her Pain Specialist is Dr. Verenice Ghosh. Left Lower Posterior Leg Pain Score (Numeric/FACES): 5 - Related Data Allergies Allergy/AdvReac Type Severity Reaction Status Date / Time aspirin Allergy Severe Anaphylactic Verified 08/06/20 11:13 Shock celecoxib [From Celebrex] Allergy Severe Airway Verified 08/06/20 11:13 Tightness codeine Allergy Severe Airway Verified 08/06/20 11:13 Tightness NSAIDS (Non-Steroidal Allergy Severe Anaphylactic Verified 08/06/20 11:13 Anti-Inflamma Shock food coloring Allergy Severe Airway Uncoded 08/06/20 11:13 Tightness Home Meds: Home Meds Albuterol/Ipratropium [Combivent Respimat] 1 puff INH Q4H PRN 03/10/16 [History] Fluticasone/Salmeterol [Advair Diskus 500-50] 1 puff INH BID 03/10/16 [History] Montelukast [Singulair] 10 mg PO DAILY 03/10/16 [History] traZODone 50 - 100 mg PO BEDTIME PRN 03/10/16 [History] dilTIAZem HCL [Cardizem Cd] 360 mg PO DAILY 07/25/17 [History] traMADol [Ultram] 1 tab PO Q6H PRN 08/06/20 [History] Albuterol [Proventil Neb Soln] 2.5 mg NEB Q4HR PRN #30 ampule 08/10/20 [Rx] Past Medical History Cardiovascular History: Reports: Arrhythmia (SVT) Respiratory History: Reports: Asthma (PFT-proven) Gastrointestinal History: Reports: Colon Polyp, Gastritis Psychiatric History: Reports: Anxiety, Depression, Other (See Below) (Fibromyalgia. Insomnia.) Endocrine/Metabolic History: Reports: Obesity/BMI 30+ - Infectious Disease History Infectious Disease History: Reports: Chicken Pox, Novel Coronavirus (Jul 2020) - Past Surgical History HEENT Surgical History: Reports: Oral Surgery (dental extractions) Cardiovascular Surgical History: Reports: Other (See Below) (Coronary angiogram x 1) GI Surgical History: Reports: Appendectomy, Cholecystectomy (around 1989), Colonoscopy (x 3), EGD (x 3 or 4) Female Surgical History: Reports: Hysterectomy (complete), Tubal Ligation Neurological Surgical History: Reports: C-Spine (ACDF), Lumbar Spine (fusion), Other (See Below) (Spinal cord stimulator) Musculoskeletal Surgical History: Reports: Arthroscopic Knee (bilateral - Lt x 2 or 3, Rt x 1 or 2), Knee Replacement (bilateral) Social & Family History - Tobacco Use Tobacco Use Status *Q: Former Tobacco User Years of Tobacco use: 20 Packs/Tins Daily: 1 Month/Year Tobacco Last Used: Quit 1997 Tobacco Use Comment: Started smoking 1977 - Caffeine Use Caffeine Use: Reports: Coffee, Soda, Tea - Alcohol Use Alcohol Use History: Yes Alcohol Use Frequency: Socially - Recreational Drug Use Recreational Drug Use: Yes Drug Use in Last 12 Months: Yes Recreational Drug Type: Reports: Marijuana/Hashish (CBD oil daily) - Living Situation & Occupation Living situation: Reports: , with Spouse Occupation: Disabled Review of Systems - Review of Systems Review Of Systems: Comprehensive ROS is negative, except as noted in HPI. Musculoskeletal: Reports: Back Pain (chronic) ED EXAM, GENERAL - Physical Exam Exam: See Below Exam Limited By: No Limitations General Appearance: Alert, WD/WN, No Apparent Distress Extremities: Other (There is an approximately 6 cm diameter ecchymosis to the anterolateral distal left leg, otherwise, there are numerous small ecchymoses scattered on all of the patient's extremities. No appreciable swelling or erythema to the left leg compared to the right. Mild tenderness to the proximal posterio) Course - Vital Signs Last Recorded V/S: Last Vital Signs Temp 35.9 C L 06/07/21 19:11 Pulse 97 06/07/21 19:11 Resp 20 06/07/21 19:11 BP 154/91 H 06/07/21 19:11 Pulse Ox 93 L 06/07/21 19:11 - Orders/Labs/Meds Orders: Active Orders 24 hr Category Date Time Status VL Duplex Lwr Ext Veins Ltd Lt [US] Stat Exams 06/07/21 19:21 Taken Labs: Laboratory Tests 06/07/21 06/07/21 06/07/21 Range/Units 19:32 19:32 19:32 WBC 11.65 H (3.98-10.04) K/mm3 RBC 4.80 (3.98-5.22) M/mm3 Hgb 14.7 D (11.2-15.7) gm/dl Hct 44.7 (34.1-44.9) % MCV 93.1 (79.4-94.8) fl MCH 30.6 (25.6-32.2) pg MCHC 32.9 (32.2-35.5) g/dl RDW Std Deviation 46.2 (36.4-46.3) fL Plt Count 260 D (182-369) K/mm3 MPV 9.2 L (9.4-12.3) fl Neutrophils % (Manual) 77 H (40-60) % Band Neutrophils % 0 (0-10) % Lymphocytes % (Manual) 19 L (20-40) % Atypical Lymphs % 0 % Monocytes % (Manual) 3 (2-10) % Eosinophils % (Manual) 1 (0.7-5.8) % Basophils % (Manual) 0 L (0.1-1.2) Platelet Estimate Adequate RBC Morph Comment Normal PT 10.3 (9.7-12.0) SECONDS INR 0.96 APTT 24.1 (21.7-31.4) SECONDS Sodium 144 (136-145) mEq/L Potassium 3.9 (3.5-5.1) mEq/L Chloride 107 (98-107) mEq/L Carbon Dioxide 26 (21-32) mEq/L Anion Gap 14.9 (5-15) BUN 17 (7-18) mg/dL Creatinine 1.2 H (0.55-1.02) mg/dL Est Cr Clr Drug Dosing 45.74 mL/min Estimated GFR (MDRD) 47 (>60) mL/min BUN/Creatinine Ratio 14.2 (14-18) Glucose 99 (70-99) mg/dL Calcium 8.6 (8.5-10.1) mg/dL Total Bilirubin 0.5 (0.2-1.0) mg/dL AST 34 (15-37) U/L ALT 70 H (14-59) U/L Alkaline Phosphatase 49 (46-116) U/L Total Protein 7.5 (6.4-8.2) g/dl Albumin 3.9 (3.4-5.0) g/dl Globulin 3.6 gm/dL Albumin/Globulin Ratio 1.1 (1-2) - Re-Assessments/Exams Free Text/Narrative Re-Assessment/Exam: 06/07/21 19:23 As above, the patient's lower anterior left leg was struck by an item about 2 weeks ago, causing a bruise. She then developed posterior proximal left calf pain yesterday, which is worse if she walks or palpates it. There is minimal tenderness on examination, and no appreciable edema. I have ordered a work-up that includes a Doppler ultrasound of the left lower extremity, along with some blood work. 06/07/21 20:50 The patient's CBC is remarkable for mild leukocytosis of 11.65, but with 0% bandemia, and the remainder of her CBC being unremarkable. Her CMP is remarkable for an ALT slightly elevated at 70, with an AST normal at 34, and the remainder of her CMP being unremarkable. Her coags are within normal limits. Doppler ultrasound of the left lower extremity is read by Adri as "No evidence for deep venous thrombosis." 06/07/21 20:55 Test results discussed with the patient. As above, today's work-up is unremarkable. I suspect that the patient's pain is due to a muscle spasm or cramp due to her walking oddly because of the bruise to her leg. I offered to prescribe a muscle relaxant to see if that would help, but she stated that she is already on cyclobenzaprine, and would like to stick with that. I suggested she try a heating pad, and perhaps go over some stretching exercises with her physical therapist. Departure - Departure Time of Disposition: 20:56 Disposition: Home, Self-Care 01 Condition: Good Clinical Impression: Pain of left calf - Discharge Information *PRESCRIPTION DRUG MONITORING PROGRAM REVIEWED*: Not Applicable *COPY OF PRESCRIPTION DRUG MONITORING REPORT IN PATIENT DE: Not Applicable Referrals: Paris Umana NP [Primary Care Provider] - Andrzej Westbrook MD [Ordering Only Provider] - Verenice Ghosh MD [Ordering Only Provider] - Forms: ED Department Discharge Additional Instructions: You were seen in the emergency room for left calf pain since yesterday, after bruising your left leg about 2 weeks ago. Work-up in the ER included several blood tests and a Doppler ultrasound of your left lower extremity. Your entire work-up was unremarkable. You do not have a DVT in your left lower extremity. Based on your history, physical exam, and ER tests, the cause of your pain is most likely due to a muscle strain, perhaps due to walking mildly because of the bruise to your left leg. We recommend that you apply a heating pad to the sore area and talk to your physical therapist about stretching exercises. If your symptoms persist, please follow-up with your PCP, Paris Umana NP. If any other problems, please do not hesitate to return to the ER. Sepsis Event Note (ED) - Focused Exam Vital Signs: Vital Signs Temp Pulse Resp BP Pulse Ox 06/07/21 19:11 35.9 C L 97 20 154/91 H 93 L - My Orders Last 24 Hours: My Active Orders 06/07/21 19:21 VL Duplex Lwr Ext Veins Ltd Lt [US] Stat - Assessment/Plan Last 24 Hours: My Active Orders 06/07/21 19:21 VL Duplex Lwr Ext Veins Ltd Lt [US] Stat
--- NOTE | 2021-06-08 09:10 | US ---
Left lower extremity deep venous ultrasound: Duplex and color Doppler evaluation was obtained of the left common femoral, proximal greater saphenous, superficial femoral, popliteal, posterior tibial and peroneal veins. Right common femoral vein was also evaluated. Comparison: No prior venous imaging is available. Findings: Normal phasic flow, augmentation and compression are seen within the visualized veins. Impression: 1. No findings of deep venous thrombosis within the left lower extremity or within the right common femoral vein. Diagnostic code #1 I agree with preliminary report from [facility], finalized on 06/07/21 9:33 PM CDT, code 1
== END 2021-06-07 21:11 | disposition home or self-care (01) ==
LOC: JD.ED 18:50
DX: S80.12XA Contusion of left lower leg, initial encounter (principal); D72.829 Elevated white blood cell count, unspecified; J45.909 Unspecified asthma, uncomplicated; E66.9 Obesity, unspecified; Z68.41 Body mass index [BMI] 40.0-44.9, adult; Z86.16 Personal history of COVID-19; Z87.891 Personal history of nicotine dependence; Z88.8 Allergy status to other drugs, medicaments and biological substances; Z88.1 Allergy status to other antibiotic agents; Z88.5 Allergy status to narcotic agent; Z88.6 Allergy status to analgesic agent; Z91.018 Allergy to other foods; Z79.899 Other long term (current) drug therapy; W22.8XXA Striking against or struck by other objects, initial encounter
CPT/HCPCS: 36415; 80053; 85007; 85027; 85610; 85730; 93971-26-LT; 93971-LT; 99283; 99284-25

== ENCOUNTER 2021-09-01 06:00 | Day surgery (SDC) | payer MEDICARE, OTHER ==
[~2021-09-01 06:00] MED LIST changes: -Bupivacaine 0.25% 10 ML SDV ONE; -Carvedilol 3.125 MG Tab PO SCH; -Dexamethasone 4 MG/ML 5 ML MDV ONE; -EPINEPHrine 1 MG/ML 30 ML MDV ONE; -HYDROmorphone 0.5 MG/0.5 ML Syringe ONE; -Levalbuterol HCl 1.25 MG/3 ML Neb NEB SCH; -Lidocaine 1% 4 ML ONE; +Lidocaine 1%/Sod Bicarbonate in NS 8.4% 1 ML Syringe IDERM PRN; -Lidocaine 1%/Sod Bicarbonate in NS 8.4% 1 ML Syringe PRN; -Neostigmine Methylsulfate 10 MG/10 ML MDV ONE; -Ondansetron 4 MG/2 ML SDV IVPUSH PRN; -Promethazine 25 MG/ML SDV IV PRN; -Promethazine 6.25 MG in Sodium Chloride 0.9% 9 ML IV PRN; -Scopolamine 1.5 MG Transdermal Patch TRDERM ONE; -Triamcinolone Acetonide 40 MG/ML 1 ML MDV ONE; -ceFAZolin 1 GM Vial ONE; -fentaNYL 100 MCG/2 ML SDV IVPUSH PRN; -traMADol 50 MG Tab PO PRN
[2021-09-01] MEDS ORDERED: ceFAZolin 1 GM Vial ONE (06:02)
--- NOTE | 2021-09-01 06:23 | PCM.PREANE ---
Preanesthetic Assessment - Procedure Proposed Procedure: left shoulder video arthrosocpy with rotator cuff repair - Anesthesia/Transfusion/Family Hx Type of Anesthesia Reaction: Excessive Nausea/Vomiting, Other (see below) (hard time waking up) Family History of Anesthesia Reaction: No Transfusion History: Prior Transfusion Without Reaction - Review of Systems General: No Symptoms Pulmonary: No Symptoms Cardiovascular: No Symptoms Gastrointestinal: No Symptoms Neurological: No Symptoms Other: Reports: Sinus Problem - Physical Assessment NPO Status Date: 08/31/21 NPO Status Time: 22:00 Vital Signs: 113/70 83 95% 16 98.1 Height: 5 ft 4 in Weight: 112 kg ASA Class: 3 Mental Status: Alert & Oriented x3 Airway Class: Mallampati = 1 Dentition: Reports: Normal Dentition Thyro-Mental Finger Breadths: 3 Mouth Opening Finger Breadths: 3 ROM/Head Extension: Full Lungs: Clear to Auscultation, Normal Respiratory Effort Cardiovascular: Regular Rate, Regular Rhythm - Allergies Allergies/Adverse Reactions: Allergies Allergy/AdvReac Type Severity Reaction Status Date / Time aspirin Allergy Severe Anaphylactic Verified 08/31/21 12:37 Shock celecoxib [From Celebrex] Allergy Severe Airway Verified 08/31/21 12:37 Tightness codeine Allergy Severe Airway Verified 08/31/21 12:37 Tightness NSAIDS (Non-Steroidal Allergy Severe Anaphylactic Verified 08/31/21 12:37 Anti-Inflamma Shock bee pollen Allergy Anaphylactic Verified 08/31/21 12:37 Shock [id number] Reductase Allergy Other Verified 08/31/21 12:37 Inhibitor food coloring Allergy Severe Airway Uncoded 08/31/21 12:37 Tightness - Blood Blood Available: No - Acknowledgements Anesthesia Type Planned: General Anesthesia Pt an Appropriate Candidate for the Planned Anesthesia: Yes Alternatives and Risks of Anesthesia Discussed w Pt/Guardian: Yes Pt/Guardian Understands and Agrees with Anesthesia Plan: Yes PreAnesthesia Questionnaire HEENT History: Reports: Impaired Vision Cardiovascular History: Reports: Arrhythmia, Hypertension Other Cardiovascular History: tachycardia - Hx SVT, heart cath Respiratory History: Reports: Asthma Gastrointestinal History: Reports: Colon Polyp, Gastritis Other Gastrointestinal History: hemorrhagic gastritis Genitourinary History: Reports: Other (See Below) Other Genitourinary History: history of breast lump CAMERA MACHINIST History: Reports: None Musculoskeletal History: Reports: Back Pain, Chronic, Fibromyalgia, Other (See Below) (degenerative disc disease) Other Musculoskeletal History: Chronic back pain with bilat leg numbness/pain. Chronic neck pain with occ. 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 Neurological History: Reports: Other (See Below) Other Neuro History: hand tremor Psychiatric History: Reports: Other (See Below) Other Psychiatric History: fatigue, insomnia Endocrine/Metabolic History: Reports: Obesity/BMI 30+ Hematologic History: Reports: None Immunologic History: Reports: None Oncologic (Cancer) History: Reports: None Dermatologic History: Reports: Other (See Below) Other Dermatologic History: actinic keratosis - Infectious Disease History Infectious Disease History: Reports: None - Past Surgical History HEENT Surgical History: Reports: Oral Surgery Cardiovascular Surgical History: Reports: Other (See Below) Other Cardiovascular Surgeries/Procedures: cardiac catheterization- Respiratory Surgical History: Reports: None GI Surgical History: Reports: Appendectomy, Cholecystectomy, Colonoscopy, EGD Female Surgical History: Reports: Hysterectomy, Tubal Ligation Endocrine Surgical History: Reports: None Neurological Surgical History: Reports: C-Spine, Lumbar Spine, Other (See Below) Other Neurological Surgeries/Procedures: spinal fusion, neck surgeries and back surgery, spinal cord stimulant implant Musculoskeletal Surgical History: Reports: Arthroscopic Knee, Knee Replacement Other Musculoskeletal Surgeries/Procedures:: bilateral knee scopes and bilateral knee replacements, excision neuroma foot Oncologic Surgical History: Reports: None Dermatological Surgical History: Reports: None - SUBSTANCE USE Tobacco Use Status *Q: Former Tobacco User (quit 1997) Tobacco Use Within Last Twelve Months: Smokeless Tobacco (quit 3-4 years ago) Second Hand Smoke Exposure: No Days Per Week of Alcohol Use: 1 Recreational Drug Use History: No - HOME MEDS Home Medications: Home Meds Albuterol/Ipratropium [Combivent Respimat] 1 puff INH Q4H PRN 03/10/16 [History] Fluticasone/Salmeterol [Advair Diskus 500-50] 1 puff INH BID 03/10/16 [History] Montelukast [Singulair] 10 mg PO DAILY 03/10/16 [History] dilTIAZem HCL [Cardizem Cd] 360 mg PO DAILY 07/25/17 [History] Cholecalciferol (Vitamin D3) [Vitamin D3] 5,000 unit PO DAILY 08/31/21 [History] Cimetidine [Acid Eeg Technician] 200 mg PO DAILY 08/31/21 [History] Cyclobenzaprine [Flexeril] 5 mg PO BID PRN 08/31/21 [History] EPINEPHrine [Epipen] 1 dose IM ONETIME PRN 08/31/21 [History] Fish Oil/[place]-3 Fatty Acids [Fish Oil 1,000 MG] 1 gm PO DAILY 08/31/21 [History] Ketotifen [Ketotifen 0.025% Ophth Soln] 1 drop EYEBOTH BEDTIME 08/31/21 [History] Magnesium Oxide 250 mg PO DAILY 08/31/21 [History] Pregabalin [Lyrica] 75 mg PO DAILY 08/31/21 [History] Propylene Glycol/PEG 400/Pf [Systane 0.3-0.4% Eye Drop] 1 dose EYEBOTH BID 08/31/21 [History] Triamcinolone Acetonide [Nasacort] 2 spray NASBOTH BID 08/31/21 [History] Vitamin B Complex [B Complex] 1 tab PO DAILY 08/31/21 [History] Zinc 50 mg PO DAILY 08/31/21 [History] traMADol [Ultram] 50 - 100 mg PO Q6H PRN #30 tab 08/31/21 [Rx] - CURRENT (IN HOUSE) MEDS Current Meds: Current Medications Lactated Ringer's (Ringers, Lactated) 1,000 mls @ 125 mls/hr IV ASDIRECTED BRUNILDA Stop: 09/01/21 23:00 Lidocaine/Sodium Bicarbonate (Lidocaine 1%/Sod Bicarbonate In Ns 8.4% 1 Ml Syringe) 0.25 ml IDERM ONETIME PRN PRN Reason: Prior to IV Start Stop: 09/01/21 18:00 Sodium Chloride (Sodium Chloride 0.9% 10 Ml Syringe) 10 ml FLUSH ASDIRECTED PRN PRN Reason: Keep Vein Open Stop: 09/01/21 18:00 Discontinued Medications Cefazolin Sodium (Cefazolin 1 Gm Vial) Confirm Administered Dose 2 gm .ROUTE . STK-MED ONE Stop: 09/01/21 06:03 Epinephrine HCl (Epinephrine 1 Mg/Ml Sdv) Confirm Administered Dose 1 mg .ROUTE .STK-MED ONE Stop: 09/01/21 05:57 Fentanyl (Fentanyl 250 Mcg/5 Ml Sdv) Confirm Administered Dose 250 mcg .ROUTE .STK-MED ONE Stop: 09/01/21 06:00 Lidocaine HCl (Lidocaine 1% 5 Ml Sdv) Confirm Administered Dose 5 ml .ROUTE .STK-MED ONE Stop: 09/01/21 06:00 Midazolam HCl (Midazolam 1 Mg/Ml 2 Ml Sdv) Confirm Administered Dose 2 mg .ROUTE .STK-MED ONE Stop: 09/01/21 05:59 Ondansetron HCl (Ondansetron 4 Mg/2 Ml Sdv) Confirm Administered Dose 4 mg .ROUTE .STK-MED ONE Stop: 09/01/21 05:59 Propofol (Propofol 200 Mg/20 Ml Sdv) Confirm Administered Dose 200 mg .ROUTE .STK-MED ONE Stop: 09/01/21 05:59 Rocuronium [place] (Rocuronium 50 Mg/5 Ml Vial) Confirm Administered Dose 50 mg .ROUTE .STK-MED ONE Stop: 09/01/21 05:59 Ropivacaine (Ropivacaine 0.5% 5 Mg/Ml 30 Ml Sdv) Confirm Administered Dose 30 ml .ROUTE .STK-MED ONE Stop: 09/01/21 05:57
[2021-09-01] MEDS ORDERED: EPINEPHrine 1 MG/ML 30 ML MDV IRR SCH (07:15)
[2021-09-01] MEDS ORDERED: Dexamethasone 4 MG/ML 5 ML MDV ONE (07:16)
[2021-09-01] MEDS ORDERED: Ondansetron 4 MG/2 ML SDV ONE (07:28)
[2021-09-01] MEDS ORDERED: Lactated Ringers 1,000 ML ONE (07:52)
[2021-09-01] MEDS ORDERED: fentaNYL 100 MCG/2 ML SDV IVPUSH PRN (08:01)
[2021-09-01] MEDS ORDERED: HYDROmorphone 0.5 MG/0.5 ML Syringe IVPUSH PRN (08:01)
[2021-09-01] MEDS ORDERED: Ondansetron 4 MG/2 ML SDV IVPUSH PRN (08:01)
--- NOTE | 2021-09-01 08:46 | PCM.POSTAN ---
POST ANESTHESIA ASSESSMENT - MENTAL STATUS Mental Status: Alert, Oriented - VITAL SIGNS Vital Signs: Last Vital Signs Temp 97.8 F 09/01/21 06:10 Pulse 78 09/01/21 06:10 Resp 16 09/01/21 06:10 BP 113/98 H 09/01/21 06:10 Pulse Ox 95 09/01/21 06:10 0839 125/74 89 16 97.2 92% - RESPIRATORY Respiratory Status: Respiratory Rate WNL, Airway Patent, O2 Saturation Stable, Supplemental Oxygen - CARDIOVASCULAR CV Status: Pulse Rate WNL, Blood Pressure Stable - GASTROINTESTINAL GI Status: No Symptoms - PAIN Pain Score: 0 - POST OP HYDRATION Hydration Status: Adequate & Stable
--- NOTE | 2021-09-01 08:51 | PCM.OPNOTE ---
- General Post-Op/Procedure Note Date of Surgery/Procedure: 09/01/21 Operative Procedure(s): left shoulder video arthroscopy with medium rotator cuff repair, biceps tenotomy, extensive debridement and SLAP repair Pre Op Diagnosis: left shoulder rotator cuff tear with biceps tendinopathy Post-Op Diagnosis: same with SLAP tear Anesthesia Technique: General ET Tube, Regional Block Primary Surgeon: Boom Collado Anesthesia Provider: Batool Oneal Dial Painter: Jigna Goodwin Dial Painter: Khushboo Oakes EBMychal in mLs: 5 Complications: None Condition: Good
[2021-09-01 10:48] VITALS: BP 122/87; PULSE 91
[2021-09-01] MEDS ORDERED: traMADol 50 MG Tab PO ONE (10:52)
--- NOTE | 2021-09-01 11:15 | PCM48HPAN ---
Post Anesthesia Note - EVALUATION WITHIN 48HRS OF ANESTHETIC Vital Signs in Normal Range: Yes Patient Participated in Evaluation: Yes Respiratory Function Stable: Yes Airway Patent: Yes Cardiovascular Function Stable: Yes Hydration Status Stable: Yes Pain Control Satisfactory: Yes Nausea and Vomiting Control Satisfactory: Yes Mental Status Recovered: Yes Vital Signs: Last Vital Signs Temp 97.8 F 09/01/21 10:40 Pulse 91 09/01/21 10:40 Resp 16 09/01/21 10:40 BP 122/87 09/01/21 10:40 Pulse Ox 93 L 09/01/21 10:40
--- NOTE | 2021-09-01 11:34 | PCM.SN.2 ---
- Free Text/Narrative Note: Date: 09/01/21 Time out: 06 Start time: 637 End time: [address] left interscalene block with ultrasound guidance and nerve stimulator for post op pain control per Dr. Collado and patient. Preop diagnosis left shoulder pain.- tear rotator cuff Procedure is left shoulder arthrosocpy - rotator cuff repair Informed consent obtained. Monitors and O2 placed at 2 l per n/c. Versed 2 mg and Fentanyl 100 mcg given IV total. Patient awake and talking during procedure. Left neck and clavicle area prepped with chlorprep. Sterile gloves, hat and mask worn. US probe with sterile sleeve placed midclavicular with ID of brachial plexus and subclavian artery. Brachial plexus followed cephalad to level of cricoid. Lidocaine 1% local anesthetic injected prior to block placement. 22 g 2 inch stimplex needle advanced with US guidance to brachial plexus. Positive forearm response at .4mA with nerve stimulator. Ceased with saline injection. Ropivacaine 0.5% with epi 1:200,000 injected in increments of 5 ml with negative aspiration before each injection to a total of 30 ml. Good spread of local anesthetic seen on US. Patient tolerated procedure well. Vitals stable with no complaints.
--- NOTE | 2021-09-13 10:35 | OR ---
DATE OF OPERATION: 09/01/2021 SURGEON: Boom Collado MD OPERATION PERFORMED: Left shoulder video arthroscopy with medium rotator cuff repair, biceps tenotomy, extensive debridement, and SLAP repair. PREOPERATIVE DIAGNOSIS: Left shoulder rotator cuff tear with biceps tendinopathy. POSTOPERATIVE DIAGNOSIS: Left shoulder rotator cuff tear with biceps tendinopathy with SLAP tear. ANESTHESIA: General endotracheal intubation with regional interscalene block. ANESTHESIA PROVIDER: Batool Oneal CRNA ASSISTANTS: Jigna Goodwin PA-C ESTIMATED BLOOD LOSS: 5 mL. COMPLICATIONS: None. CONDITION: Stable. DESCRIPTION OF PROCEDURE: The patient was identified in the preoperative holding area. Proper site was marked and identified by surgeon. The patient was taken back to the operative theater, where after adequate anesthesia, the patient was placed in a lazy right lateral decubitus position. Wedge was placed posteriorly. The patient was secured to the table. Left upper extremity was then sterilely prepped and draped in the usual sterile fashion. OR time-out was performed. The patient received 2 g IV Ancef. Standard 12 pounds of traction was applied to the left upper extremity. Standard posterior incision was made and the scope trocar was introduced into the glenohumeral joint. At this time, an anterior portal was created with use of a spinal needle from an outside-in technique. The patient was noted to have a medium rotator cuff tear of the supraspinatus, also significant fraying of the biceps tendon as well as a partial SLAP tear near the superior anterior rim. Subscapularis tendon was intact. There were no chondromalacial changes. At this time, biceps tenotomy was done and an extensive debridement of the synovitis as well as any loose labrum was done at this time. A FiberStick was then placed under the anterior superior labrum and a 2.9 mm Arthrex PushLock anchor was used to secure the labrum at the anterior and superior portion. It was found to have an adequate fixation. Attention was turned to the subacromial space. Significant bursectomy and extensive debridement of the bursa was done at this time. The patient was noted to have no fraying of the CA ligament and no signs of subacromial impingement. The patient was noted to have a medium rotator cuff tear. At this time, a good bony bleeding bed was created for evangelical of the footprint. An Arthrex all- suture anchor was placed medially. The 6 limbs of the suture were then placed from anterior to posterior and were all brought out through a Emerald lateral anchor, which was impacted at the bone and then the interference screw was placed. After tension was applied, it was found to have adequate watertight repair of the supraspinatus. The patient was noted to have some significant just fraying in general of the tendinous tissue, but otherwise no signs of CA ligament fraying. At this time, excess saline was drained from the shoulder. 3- 0 nylon suture was used for closure of the portals. The patient was placed in a sterile soft dressing and a pillow sling and sent to the PACU in stable condition. FLACO /[id number]
== END 2021-09-01 11:30 | disposition home or self-care (01) ==
LOC: JD.SDS 06:00
PROVIDERS: ATTEND Orthopaedic Surgery
DX: M75.102 Unspecified rotator cuff tear or rupture of left shoulder, not specified as traumatic (principal); S43.432A Superior glenoid labrum lesion of left shoulder, initial encounter; M75.52 Bursitis of left shoulder; M25.812 Other specified joint disorders, left shoulder; J45.909 Unspecified asthma, uncomplicated; I10 Essential (primary) hypertension; G47.00 Insomnia, unspecified; G89.29 Other chronic pain; E66.01 Morbid (severe) obesity due to excess calories; Z90.49 Acquired absence of other specified parts of digestive tract; Z98.890 Other specified postprocedural states; Z88.8 Allergy status to other drugs, medicaments and biological substances; Z88.5 Allergy status to narcotic agent; Z91.02 Food additives allergy status; Z91.030 Bee allergy status; Z68.41 Body mass index [BMI] 40.0-44.9, adult; Z87.891 Personal history of nicotine dependence
CPT/HCPCS: 29807; 29827; A9270; C1713; J0171; J0690; J1100; J2250; J2405; J2704; J2710; J2795; J3010; J7120; 01630

== ENCOUNTER → 2022-01-30 | Day surgery (SDC) | payer MEDICARE, OTHER ==
[~2022-01-30] MED LIST changes: -EPINEPHrine 1 MG/ML SDV ONE; +HYDROmorphone 0.5 MG/0.5 ML Syringe IVPUSH PRN; +Lidocaine 1% 6 ML ONE; +Lidocaine 2% 100 MG/5 ML Syringe ONE; -Midazolam 1 MG/ML 2 ML SDV ONE; +Ondansetron 4 MG/2 ML SDV IVPUSH PRN; -Ondansetron 4 MG/2 ML SDV ONE; -Rocuronium 50 MG/5 ML Vial ONE; -Ropivacaine 0.5% 5 MG/ML 30 ML SDV ONE; +Sodium Chloride 0.9% 10 ML Syringe FLUSH SCH; +fentaNYL 100 MCG/2 ML SDV IVPUSH PRN; -fentaNYL 250 MCG/5 ML SDV ONE
[2022-01-30 12:32] VITALS: BP 117/70; PULSE 85
== END | disposition home or self-care (01) ==
LOC: JD.SDS 08:35
PROVIDERS: ATTEND Surgery
DX: Z12.11 Encounter for screening for malignant neoplasm of colon (principal); D12.7 Benign neoplasm of rectosigmoid junction; K57.30 Diverticulosis of large intestine without perforation or abscess without bleeding; K31.89 Other diseases of stomach and duodenum; K44.9 Diaphragmatic hernia without obstruction or gangrene; K29.70 Gastritis, unspecified, without bleeding; K21.00 Gastro-esophageal reflux disease with esophagitis, without bleeding; I78.1 Nevus, non-neoplastic; J45.909 Unspecified asthma, uncomplicated; I10 Essential (primary) hypertension; G47.00 Insomnia, unspecified; G89.29 Other chronic pain; E66.01 Morbid (severe) obesity due to excess calories; E78.2 Mixed hyperlipidemia; Z86.16 Personal history of COVID-19; Z98.890 Other specified postprocedural states; Z79.899 Other long term (current) drug therapy; Z87.891 Personal history of nicotine dependence; Z68.41 Body mass index [BMI] 40.0-44.9, adult
CPT/HCPCS: 43239; 45380; J2704; J7120; 00813

== ENCOUNTER 2022-05-14 05:23 | Emergency (ER) | payer MEDICARE, OTHER ==
[2022-05-14 05:47] VITALS: BP 168/79; PULSE 60
[2022-05-14] MEDS ORDERED: HYDROmorphone 1 MG/ML Syringe IM ONE (07:18)
== END 2022-05-14 08:05 | disposition home or self-care (01) ==
LOC: JD.ED 05:23
DX: M54.41 Lumbago with sciatica, right side (principal); M54.42 Lumbago with sciatica, left side; J45.909 Unspecified asthma, uncomplicated; I10 Essential (primary) hypertension; E66.9 Obesity, unspecified; Z68.41 Body mass index [BMI] 40.0-44.9, adult; Z88.8 Allergy status to other drugs, medicaments and biological substances; Z88.1 Allergy status to other antibiotic agents; Z88.6 Allergy status to analgesic agent; Z91.048 Other nonmedicinal substance allergy status; Z79.899 Other long term (current) drug therapy; Z86.16 Personal history of COVID-19; Z90.49 Acquired absence of other specified parts of digestive tract; Z90.710 Acquired absence of both cervix and uterus; Z87.891 Personal history of nicotine dependence; W18.39XA Other fall on same level, initial encounter
CPT/HCPCS: 72131; 96372; 99283; J1170

== ENCOUNTER 2022-09-08 16:20 | Emergency (ER) | payer MEDICARE, OTHER ==
[2022-09-08 16:29] VITALS: BP 180/98; PULSE 101
[2022-09-08] MEDS ORDERED: Sodium Chloride 0.9% 10 ML Syringe FLUSH PRN (16:35)
[2022-09-08] MEDS ORDERED: HYDROmorphone 0.5 MG/0.5 ML Syringe IVPUSH ONE (16:36)
[2022-09-08] MEDS ORDERED: Sodium Chloride 0.9% 1,000 ML IV SCH (16:45)
== END 2022-09-08 19:41 | disposition home or self-care (01) ==
LOC: JD.ED 16:20
DX: R42 Dizziness and giddiness (principal); I10 Essential (primary) hypertension; E66.9 Obesity, unspecified; Z68.41 Body mass index [BMI] 40.0-44.9, adult; Z88.6 Allergy status to analgesic agent; Z88.1 Allergy status to other antibiotic agents; Z88.5 Allergy status to narcotic agent; Z91.030 Bee allergy status; Z91.048 Other nonmedicinal substance allergy status; Z79.899 Other long term (current) drug therapy; Z90.49 Acquired absence of other specified parts of digestive tract; Z90.710 Acquired absence of both cervix and uterus
CPT/HCPCS: 36415; 70450; 70450-26; 80053; 83735; 84484; 85025; 86140; 93005; 93225; 93226; 96361; 96374; 99284-25; J1170; J7030

== ENCOUNTER 2023-06-26 10:40 | Emergency (ER) | payer MEDICARE, OTHER ==
[2023-06-26] MEDS ORDERED: Sodium Chloride 0.9% 1,000 ML IV STA (11:12)
[2023-06-26] MEDS ORDERED: Iopamidol 612 MG/ML 100 ML Bottle IVPUSH ONE (11:15)
[2023-06-26] MEDS ORDERED: Sodium Chloride 0.9% 10 ML Syringe FLUSH PRN (11:15)
[2023-06-26] MEDS: Sodium Chloride 0.9% 10 ML Syringe FLUSH PRN ×2 (11:37→11:54)
[2023-06-26 12:08] LABS: BASOPHILS PERCENT AUTO 0.4 % (0.0-1.0); EOSINOPHILS ABSOLUTE AUTO 0.3 K/mm3 (0.0-0.4); EOSINOPHILS PERCENT AUTO 3.7 % (0.0-6.0); HEMATOCRIT 39.9 % (37.0-47.0); HEMOGLOBIN 13.1 gm/dl (12.0-16.0); IMMATURE GRAN ABSOLUTE AUTO 0.05 K/mm3 (0.00-0.05); IMMATURE GRAN PERCENT AUTO 0.7 % (0.0-0.4); LYMPHOCYTES ABSOLUTE AUTO 2.5 K/mm3 (1.0-4.8); LYMPHOCYTES PERCENT AUTO 34.3 % (24.0-44.0); MEAN CORPUSCULAR HEMOGLOBIN 30.5 pg (28.0-32.0); MEAN CORPUSCULAR HGB CONC 32.8 g/dl (32.0-36.0); MEAN CORPUSCULAR VOLUME 92.8 fl (83.0-99.0); MEAN PLATELET VOLUME 9.6 fl (9.4-12.3); MONOCYTES ABSOLUTE AUTO 0.7 K/mm3 (0.0-0.8); MONOCYTES PERCENT AUTO 9.2 % (0.0-8.0); NEUTROPHILS ABSOLUTE AUTO 3.8 K/mm3 (1.8-7.7); NEUTROPHILS PERCENT AUTO 51.7 % (41.0-71.0); PLATELET COUNT,PLT 209 K/mm3 (150-400); WHITE BLOOD CELL COUNT,WBC 7.26 K/mm3 (3.9-11.3)
[2023-06-26 12:27] LABS: ALBUMIN 3.3 g/dl (3.4-5.0); ANION GAP 14.9 (5-15); BILIRUBIN TOTAL 0.5 mg/dL (0.2-1.0); CALCIUM 8.3 mg/dL (8.5-10.1); EST CRCL DRUG DOSING (CG) 53.6 mL/min; POTASSIUM,K 3.9 mEq/L (3.5-5.1); PROTEIN TOTAL,TP 6.6 g/dl (6.4-8.2)
[2023-06-26] MEDS ORDERED: cefTRIAXone 2 GM in Sodium Chloride 0.9% 100 ML IV ONE (12:49)
[2023-06-26 13:56] VITALS: BP 135/97; PULSE 86
== END 2023-06-26 13:56 | disposition home or self-care (01) ==
LOC: JD.ED 10:40
DX: L03.213 Periorbital cellulitis (principal); E78.00 Pure hypercholesterolemia, unspecified; I10 Essential (primary) hypertension; J45.909 Unspecified asthma, uncomplicated; K21.9 Gastro-esophageal reflux disease without esophagitis; E66.9 Obesity, unspecified; Z88.5 Allergy status to narcotic agent; Z91.030 Bee allergy status; Z88.8 Allergy status to other drugs, medicaments and biological substances; Z91.048 Other nonmedicinal substance allergy status; Z79.899 Other long term (current) drug therapy; Z86.16 Personal history of COVID-19; Z68.41 Body mass index [BMI] 40.0-44.9, adult
CPT/HCPCS: 36415; 70487; 80053; 85025; 96365; 99283; J0696; J3490; J7030; Q9967; 99284

== ENCOUNTER 2023-10-13 08:16 | Observation (INO) | payer MEDICARE, OTHER ==
[2023-10-13 09:36] LABS: CORONAVIRUS COVID-19 NAA NEGATIVE (NEGATIVE); INFLUENZA A NAA POSITIVE (NEGATIVE)
[2023-10-13] MEDS ORDERED: Albuterol/Ipratropium 3.0-0.5 MG/3 ML Neb Soln NEB ONE (10:02)
[2023-10-13] MEDS ORDERED: Acetaminophen 325 MG Tab PO ONE ×2 (10:30→12:53)
[2023-10-13] MEDS ORDERED: Albuterol 0.083% 2.5 MG/3 ML Neb Soln NEB ONE (11:27)
[2023-10-13] MEDS ORDERED: Sodium Chloride 0.9% 10 ML Syringe FLUSH PRN (11:27)
[2023-10-13 12:13] LABS: BASOPHILS PERCENT AUTO 0.4 % (0.0-1.0); EOSINOPHILS ABSOLUTE AUTO 0.1 K/mm3 (0.0-0.4); EOSINOPHILS PERCENT AUTO 0.5 % (0.0-6.0); HEMATOCRIT 39.7 % (37.0-47.0); HEMOGLOBIN 13.2 gm/dl (12.0-16.0); IMMATURE GRAN ABSOLUTE AUTO 0.23 K/mm3 (0.00-0.05); IMMATURE GRAN PERCENT AUTO 2.3 % (0.0-0.4); LYMPHOCYTES ABSOLUTE AUTO 1.1 K/mm3 (1.0-4.8); LYMPHOCYTES PERCENT AUTO 11.3 % (24.0-44.0); MEAN CORPUSCULAR HEMOGLOBIN 30.4 pg (28.0-32.0); MEAN CORPUSCULAR HGB CONC 33.2 g/dl (32.0-36.0); MEAN CORPUSCULAR VOLUME 91.5 fl (83.0-99.0); MONOCYTES ABSOLUTE AUTO 1.4 K/mm3 (0.0-0.8); MONOCYTES PERCENT AUTO 14.7 % (0.0-8.0); NEUTROPHILS ABSOLUTE AUTO 6.9 K/mm3 (1.8-7.7); NEUTROPHILS PERCENT AUTO 70.8 % (41.0-71.0); PLATELET COUNT,PLT 202 K/mm3 (150-400); RED BLOOD CELL COUNT 4.34 M/mm3 (4.10-5.30); WHITE BLOOD CELL COUNT,WBC 9.79 K/mm3 (3.9-11.3)
[2023-10-13 12:27] LABS: A/G RATIO 0.9 (1-2); ALBUMIN 3.1 g/dl (3.4-5.0); ANION GAP 13.8 (5-15); BILIRUBIN TOTAL 0.7 mg/dL (0.2-1.0); BUN/CREATININE RATIO 8.5 (14-18); CALCIUM 8.4 mg/dL (8.5-10.1); CREATININE 1.3 mg/dL (0.55-1.02); EST CRCL DRUG DOSING (CG) 41.23 mL/min; POTASSIUM,K 3.8 mEq/L (3.5-5.1); PROTEIN TOTAL,TP 6.7 g/dl (6.4-8.2)
[2023-10-13] MEDS ORDERED: methylPREDNISolone Sodium Succinate 125 MG/2 ML SDV IVPUSH ONE (12:32)
[2023-10-13] MEDS ORDERED: Non-Formulary Medication 1 Each (Albuterol/Ipratropium [Combivent Respimat] 4 GM Inhaler) INH PRN (12:39)
[2023-10-13] MEDS ORDERED: oxyCODONE 5 MG Tab PO PRN (12:53)
[2023-10-13] MEDS ORDERED: Ondansetron 4 MG Tab.DIS PO PRN (12:53)
[2023-10-13] MEDS ORDERED: Docusate Sodium 100 MG Cap PO PRN (12:53)
[2023-10-13] MEDS ORDERED: Benzonatate 100 MG Cap PO PRN (19:54)
[2023-10-13] MEDS: Acetaminophen 325 MG Tab PO PRN (20:08)
[2023-10-13] MEDS: Gabapentin 100 MG Cap PO SCH (20:08)
[2023-10-13] MEDS: Albuterol/Ipratropium 3.0-0.5 MG/3 ML Neb Soln NEB PRN (20:30)
[2023-10-13] MEDS: Formoterol/Mometasone 200-5 MCG 8.8 GM Inhaler IH SCH (20:30)
[2023-10-13] MEDS: tiZANidine 4 MG Tab PO SCH (22:18)
[2023-10-14] MEDS: guaiFENesin 600 MG Tab.ER PO SCH ×2 (00:35→09:04)
[2023-10-14] MEDS: Carboxymethylcellulose Sodium 1% Ophth Gel 15 ML Bottle EYEBOTH SCH ×2 (00:35→09:04)
[2023-10-14] MEDS: Acetaminophen 325 MG Tab PO PRN (02:40)
[2023-10-14] MEDS: Albuterol/Ipratropium 3.0-0.5 MG/3 ML Neb Soln NEB PRN ×3 (02:45→13:46)
[2023-10-14 05:30] LABS: BASOPHILS PERCENT AUTO 0.2 % (0.0-1.0); HEMATOCRIT 39.9 % (37.0-47.0); HEMOGLOBIN 13.3 gm/dl (12.0-16.0); IMMATURE GRAN PERCENT AUTO 1.6 % (0.0-0.4); LYMPHOCYTES ABSOLUTE AUTO 0.4 K/mm3 (1.0-4.8); LYMPHOCYTES PERCENT AUTO 7.2 % (24.0-44.0); MEAN CORPUSCULAR HEMOGLOBIN 30.4 pg (28.0-32.0); MEAN CORPUSCULAR HGB CONC 33.3 g/dl (32.0-36.0); MEAN CORPUSCULAR VOLUME 91.1 fl (83.0-99.0); MEAN PLATELET VOLUME 9.4 fl (9.4-12.3); MONOCYTES ABSOLUTE AUTO 0.3 K/mm3 (0.0-0.8); MONOCYTES PERCENT AUTO 4.3 % (0.0-8.0); NEUTROPHILS ABSOLUTE AUTO 5.3 K/mm3 (1.8-7.7); NEUTROPHILS PERCENT AUTO 86.7 % (41.0-71.0); PLATELET COUNT,PLT 194 K/mm3 (150-400); RED BLOOD CELL COUNT 4.38 M/mm3 (4.10-5.30); WHITE BLOOD CELL COUNT,WBC 6.08 K/mm3 (3.9-11.3)
[2023-10-14 05:50] LABS: A/G RATIO 0.8 (1-2); ANION GAP 14.9 (5-15); BILIRUBIN TOTAL 0.3 mg/dL (0.2-1.0); BUN/CREATININE RATIO 10.8 (14-18); C-REACTIVE PROTEIN 11.9 mg/dL (<1.0); CALCIUM 8.6 mg/dL (8.5-10.1); CREATININE 1.2 mg/dL (0.55-1.02); EST CRCL DRUG DOSING (CG) 44.66 mL/min; MAGNESIUM 2.1 mg/dL (1.8-2.4); POTASSIUM,K 3.9 mEq/L (3.5-5.1); PROTEIN TOTAL,TP 6.8 g/dl (6.4-8.2)
[2023-10-14] MEDS: Formoterol/Mometasone 200-5 MCG 8.8 GM Inhaler IH SCH (08:44)
[2023-10-14] MEDS ORDERED: Magnesium Oxide 400 MG Tab PO SCH (09:00)
[2023-10-14] MEDS ORDERED: Pantoprazole 40 MG Tab.CR PO SCH (09:00)
[2023-10-14] MEDS ORDERED: Enoxaparin 40 MG/0.4 ML Syringe SUBCUT SCH (09:00)
[2023-10-14] MEDS ORDERED: Fluticasone NASAL Spray 16 GM Bottle NAS SCH (09:00)
[2023-10-14] MEDS ORDERED: Montelukast 10 MG Tab PO SCH (09:00)
[2023-10-14] MEDS ORDERED: Diltiazem 180 MG Cap.CD PO SCH (09:00)
[2023-10-14] MEDS ORDERED: Cholecalciferol (Vitamin D3) 5,000 UNIT Tab PO SCH (09:00)
[2023-10-14] MEDS ORDERED: Cholecalciferol (Vitamin D3) 5,000 UNIT Cap PO SCH (09:00)
[2023-10-14] MEDS: Gabapentin 100 MG Cap PO SCH (09:02)
[2023-10-14] MEDS: tiZANidine 4 MG Tab PO SCH (09:03)
[2023-10-14] MEDS ORDERED: predniSONE 20 MG Tab PO ONE (14:06)
[2023-10-14 14:58] VITALS: PULSE 83
[2023-10-14 14:59] VITALS: BP 118/89
== END 2023-10-14 15:12 | disposition home or self-care (01) ==
LOC: JD.ED 08:16 → JD.MS 12:24
PROVIDERS: ADMIT Internal Medicine; ATTEND Internal Medicine
DX: J96.00 Acute respiratory failure, unspecified whether with hypoxia or hypercapnia (principal); E78.00 Pure hypercholesterolemia, unspecified; I10 Essential (primary) hypertension; J45.909 Unspecified asthma, uncomplicated; K21.9 Gastro-esophageal reflux disease without esophagitis; J10.1 Influenza due to other identified influenza virus with other respiratory manifestations; E66.9 Obesity, unspecified; Z68.30 Body mass index [BMI] 30.0-30.9, adult; Z20.822 Contact with and (suspected) exposure to COVID-19; Z87.891 Personal history of nicotine dependence; Z98.890 Other specified postprocedural states; Z79.899 Other long term (current) drug therapy
CPT/HCPCS: 0240U; 36415; 71046; 80053; 83735; 85025; 86140; 94640; 94667; 94668; 94761; 99285; A9270; J1650; J2930; J3490; J7512; 96372; G0378; J7620-GY

== ENCOUNTER 2023-10-17 11:43 | Emergency (ER) | payer MEDICARE, OTHER ==
[2023-10-17] MEDS ORDERED: Albuterol/Ipratropium 3.0-0.5 MG/3 ML Neb Soln NEB SCH (14:00)
[2023-10-17 14:17] LABS: BASOPHILS PERCENT AUTO 0.3 % (0.0-1.0); EOSINOPHILS PERCENT AUTO 0.2 % (0.0-6.0); HEMATOCRIT 41.3 % (37.0-47.0); HEMOGLOBIN 13.5 gm/dl (12.0-16.0); IMMATURE GRAN ABSOLUTE AUTO 0.16 K/mm3 (0.00-0.05); IMMATURE GRAN PERCENT AUTO 1.8 % (0.0-0.4); LYMPHOCYTES ABSOLUTE AUTO 1.6 K/mm3 (1.0-4.8); MEAN CORPUSCULAR HEMOGLOBIN 29.7 pg (28.0-32.0); MEAN CORPUSCULAR HGB CONC 32.7 g/dl (32.0-36.0); MEAN PLATELET VOLUME 9.3 fl (9.4-12.3); MONOCYTES ABSOLUTE AUTO 0.5 K/mm3 (0.0-0.8); MONOCYTES PERCENT AUTO 5.6 % (0.0-8.0); NEUTROPHILS ABSOLUTE AUTO 6.6 K/mm3 (1.8-7.7); NEUTROPHILS PERCENT AUTO 74.1 % (41.0-71.0); PLATELET COUNT,PLT 208 K/mm3 (150-400); RED BLOOD CELL COUNT 4.54 M/mm3 (4.10-5.30); WHITE BLOOD CELL COUNT,WBC 8.91 K/mm3 (3.9-11.3)
[2023-10-17 14:47] LABS: A/G RATIO 0.8 (1-2); ALANINE AMINOTRANSFERASE,ALT 121 U/L (14-59); ALBUMIN 3.2 g/dl (3.4-5.0); ALKALINE PHOSPHATASE 53 U/L (46-116); ANION GAP 15.8 (5-15); ASPARTATE AMNIOTRANSFERASE,AST 104 U/L (15-37); BILIRUBIN TOTAL 0.6 mg/dL (0.2-1.0); BLOOD UREA NITROGEN,BUN 11 mg/dL (7-18); CALCIUM 8.7 mg/dL (8.5-10.1); CARBON DIOXIDE,CO2 24 mEq/L (21-32); CHLORIDE,CL 106 mEq/L (98-107); ESTIMATED GFR 66 mL/min (>60); GLUCOSE RANDOM 129 mg/dL (70-99); POTASSIUM,K 3.8 mEq/L (3.5-5.1); SODIUM,NA 142 mEq/L (136-145)
[2023-10-17 14:53] LABS: C-REACTIVE PROTEIN < 0.2 mg/dL (<1.0)
[2023-10-17 15:26] VITALS: BP 123/68; PULSE 78
== END 2023-10-17 15:23 | disposition home or self-care (01) ==
LOC: JD.ED 11:43
DX: J10.1 Influenza due to other identified influenza virus with other respiratory manifestations (principal); J45.909 Unspecified asthma, uncomplicated; I10 Essential (primary) hypertension; E78.00 Pure hypercholesterolemia, unspecified; K21.9 Gastro-esophageal reflux disease without esophagitis; E66.9 Obesity, unspecified; Z86.16 Personal history of COVID-19; Z79.899 Other long term (current) drug therapy; Z91.013 Allergy to seafood; Z91.018 Allergy to other foods; Z88.6 Allergy status to analgesic agent; Z88.8 Allergy status to other drugs, medicaments and biological substances; Z88.5 Allergy status to narcotic agent; Z88.1 Allergy status to other antibiotic agents; Z68.41 Body mass index [BMI] 40.0-44.9, adult
CPT/HCPCS: 36415; 71046; 71046-26; 80053; 85025; 86140; 94640; 99285; J7620-GY

== ENCOUNTER 2024-04-20 12:43 | Emergency (ER) | payer MEDICARE, OTHER ==
[2024-04-20 14:38] LABS: BASOPHILS PERCENT AUTO 0.4 % (0.0-1.0); EOSINOPHILS ABSOLUTE AUTO 0.2 K/mm3 (0.0-0.4); EOSINOPHILS PERCENT AUTO 2.1 % (0.0-6.0); HEMATOCRIT 41.1 % (37.0-47.0); IMMATURE GRAN ABSOLUTE AUTO 0.06 K/mm3 (0.00-0.05); IMMATURE GRAN PERCENT AUTO 0.6 % (0.0-0.4); LYMPHOCYTES ABSOLUTE AUTO 2.3 K/mm3 (1.0-4.8); LYMPHOCYTES PERCENT AUTO 23.9 % (24.0-44.0); MEAN CORPUSCULAR HGB CONC 34.1 g/dl (32.0-36.0); MEAN CORPUSCULAR VOLUME 90.9 fl (83.0-99.0); MEAN PLATELET VOLUME 10.2 fl (9.4-12.3); MONOCYTES ABSOLUTE AUTO 0.8 K/mm3 (0.0-0.8); MONOCYTES PERCENT AUTO 8.7 % (0.0-8.0); NEUTROPHILS ABSOLUTE AUTO 6.2 K/mm3 (1.8-7.7); NEUTROPHILS PERCENT AUTO 64.3 % (41.0-71.0); PLATELET COUNT,PLT 237 K/mm3 (150-400); RED BLOOD CELL COUNT 4.52 M/mm3 (4.10-5.30); WHITE BLOOD CELL COUNT,WBC 9.69 K/mm3 (3.9-11.3)
[2024-04-20 14:50] LABS: A/G RATIO 1.1 (1-2); ALANINE AMINOTRANSFERASE,ALT 64 U/L (14-59); ALBUMIN 3.5 g/dl (3.4-5.0); ALKALINE PHOSPHATASE 70 U/L (46-116); ANION GAP 13.5 (5-15); ASPARTATE AMNIOTRANSFERASE,AST 51 U/L (15-37); BILIRUBIN TOTAL 0.6 mg/dL (0.2-1.0); BLOOD UREA NITROGEN,BUN 11 mg/dL (7-18); C-REACTIVE PROTEIN 1.47 mg/dL (<0.30); CALCIUM 8.5 mg/dL (8.5-10.1); CARBON DIOXIDE,CO2 24 mEq/L (21-32); CHLORIDE,CL 104 mEq/L (98-107); EST CRCL DRUG DOSING (CG) 52.95 mL/min; ESTIMATED GFR 65 mL/min (>60); GLUCOSE RANDOM 93 mg/dL (70-99); POTASSIUM,K 3.5 mEq/L (3.5-5.1); PROTEIN TOTAL,TP 6.7 g/dl (6.4-8.2); SODIUM,NA 138 mEq/L (136-145)
[2024-04-20 15:06] LABS: TROPONIN I HIGH SENSITIVITY < 4 pg/mL (<=51)
[2024-04-20 16:51] LABS: APPEARANCE,URINE CLEAR (Clear); BILIRUBIN,URINE NEGATIVE (Negative); COLOR,URINE LIGHT YELLOW (Yellow); GLUCOSE,URINE NEGATIVE (Negative); KETONES,URINE NEGATIVE (Negative); LEUKOCYTE ESTERASE,URINE NEGATIVE (Negative); NITRITE,URINE NEGATIVE (Negative); OCCULT BLOOD,URINE NEGATIVE (Negative); PH,URINE 6.5 (5.0-8.0); PROTEIN,URINE NEGATIVE (Negative); UROBILINOGEN,URINE 0.2 (0.2-1.0)
[2024-04-20] MEDS: Sodium Chloride 0.9% 10 ML Syringe FLUSH PRN (16:57)
[2024-04-20 20:21] VITALS: BP 143/75; PULSE 79
== END 2024-04-20 17:25 | disposition home or self-care (01) ==
LOC: JD.ED 12:43
DX: R07.89 Other chest pain (principal); I10 Essential (primary) hypertension; E78.00 Pure hypercholesterolemia, unspecified; K21.9 Gastro-esophageal reflux disease without esophagitis; E66.9 Obesity, unspecified; J45.909 Unspecified asthma, uncomplicated; Z79.899 Other long term (current) drug therapy; Z68.41 Body mass index [BMI] 40.0-44.9, adult
CPT/HCPCS: 36415; 71046; 71046-26; 80053; 81003; 84484; 85025; 85379; 86140; 93005; 99285; J3490

== ENCOUNTER 2024-06-30 22:22 | Emergency (ER) | payer MEDICARE, OTHER ==
[2024-06-30 22:35] VITALS: BP 178/89; PULSE 102
[2024-06-30] MEDS: cefTRIAXone 1 GM, Lidocaine 1% 2.1 ML IM ONE (23:43)
== END 2024-07-01 00:21 | disposition home or self-care (01) ==
LOC: JD.ED 22:22
DX: S61.051A Open bite of right thumb without damage to nail, initial encounter (principal); I10 Essential (primary) hypertension; E78.00 Pure hypercholesterolemia, unspecified; J45.909 Unspecified asthma, uncomplicated; K21.9 Gastro-esophageal reflux disease without esophagitis; E66.9 Obesity, unspecified; Z90.49 Acquired absence of other specified parts of digestive tract; Z90.710 Acquired absence of both cervix and uterus; Z79.899 Other long term (current) drug therapy; Z91.018 Allergy to other foods; Z88.8 Allergy status to other drugs, medicaments and biological substances; Z91.013 Allergy to seafood; Z91.030 Bee allergy status; Z88.5 Allergy status to narcotic agent; W55.81XA Bitten by other mammals, initial encounter
CPT/HCPCS: 96372; 99283; J0696; J3490

== ENCOUNTER 2025-05-18 14:55 | Emergency (ER) | payer MEDICARE, OTHER ==
[2025-05-18 17:12] VITALS: BP 121/88; PULSE 72
== END 2025-05-18 17:07 | disposition home or self-care (01) ==
LOC: JD.ED 14:55
DX: S70.01XA Contusion of right hip, initial encounter (principal); S30.0XXA Contusion of lower back and pelvis, initial encounter; E78.00 Pure hypercholesterolemia, unspecified; I10 Essential (primary) hypertension; J45.909 Unspecified asthma, uncomplicated; Z90.49 Acquired absence of other specified parts of digestive tract; Z88.6 Allergy status to analgesic agent; Z88.5 Allergy status to narcotic agent; Z88.1 Allergy status to other antibiotic agents; Z91.013 Allergy to seafood; Z91.018 Allergy to other foods; Z91.030 Bee allergy status; Z79.51 Long term (current) use of inhaled steroids; Z79.899 Other long term (current) drug therapy; W22.8XXA Striking against or struck by other objects, initial encounter; Y93.89 Activity, other specified
CPT/HCPCS: 73501-26-RT; 73501-RT; 99283; 99284